=== PATIENT | male | born 1955 ===

== ENCOUNTER 2020-11-24 12:11 | Emergency (ER) | payer OTHER, SELFPAY ==
--- NOTE | ~2020-11-24 | XR_ITS ---
EXAMINATION: XR CHEST CLINICAL INFORMATION: Chest pain. COMPARISON: Chest 01/14/2015 TECHNIQUE: Frontal view of the chest was obtained. FINDINGS: No significant abnormality is noted involving the heart, lungs, mediastinum, bony thorax or soft tissues. XR/XR chest 1V IMPRESSION: Unremarkable chest exam.
[2020-11-24 13:46] VITALS: BP 149/68; PULSE 55; RESP 20; TEMP 35.3; O2SAT 96; BMI 52.4
--- NOTE | 2020-11-24 14:45 | ED_ITS ---
HPI - Back Pain/Injury General Chief Complaint: Back Pain/Injury Stated Complaint: back pain Time Seen by Provider: 11/24/20 14:45 Source: patient Mode of arrival: ambulatory Limitations: no limitations History of Present Illness HPI Narrative: 65-year-old morbidly obese male presents for 1 week of left-sided low back pain, and 3 months of right upper ?lung pain?. No chest pain. Patient has no leg weakness, no saddle paresthesia, no incontinence of bowel or bladder, no fevers, no IV drug use, no personal history of cancer. Patient states his PCP wants him to have a ?lung test? the patient has not had this test yet and his PCP has not ordered it yet. MD elicited complaint: back pain Pertinent past history: prior back pain Onset (ago): week(s) (1) Timing: constant Severity: moderate Similar Symptoms Previously: Yes Quality: aching Location: left lower back Radiation: none Exacerbating factors: movement Associated symptoms: denies other symptoms Work related injury: No Related Data Previous Rx's Medication Instructions Recorded cyclobenzaprine 5 mg tablet 5 mg PO TID 5 Days #15 tab 11/24/20 ketorolac 10 mg tablet 10 mg PO QID 5 Days #20 tab 11/24/20 Allergies Allergy/AdvReac Type Severity Reaction Status Date / Time No Known Allergies Allergy Unverified 11/15/19 16:18 Review of Systems Constitutional: Constitutional: Denies chills, Denies fatigue, Denies fever(s) and Denies headache(s) ENT: Denies headache(s) and Denies neck pain Cardiovascular: Cardiovascular: Denies chest pain, Denies claudication, Denies leg edema, Denies lightheadedness and Denies dyspnea Respiratory: Respiratory: Denies chest congestion, Denies cough and Denies dyspnea Gastrointestinal: Gastrointestinal: Denies abdominal pain, Denies constipation, Denies diarrhea, Denies nausea and Denies vomiting Genitourinary: Genitourinary: Reports no additional male genitourinary complaints Musculoskeletal: Musculoskeletal: Reports back pain, Denies muscle weakness, Denies neck pain, Denies numbness, Reports stiffness and Denies tingling Integumentary/Breasts: Skin/Breast: Denies erythema and Denies rash Neurologic: Denies headache(s), Denies numbness and Denies tingling Endocrine: Endocrine: Denies fatigue PMFSH Past Medical History Medical History Anxiety Depression Hypertension Panic anxiety syndrome Social History Social History Advance Directives: No Advance Directives Information Provided: No Physical Exam Vital Signs: Vital Signs: Last Vital Signs Temp 99.1 F 11/24/20 15:59 Pulse 56 11/24/20 15:59 Resp 22 H 11/24/20 15:59 BP 151/65 H 11/24/20 15:59 Pulse Ox 97 11/24/20 15:59 Body Mass Index 52.4 Const: General: no acute distress, alert, awake and poor hygiene Nutritional Appearance: obese centrally obese Orientation/consciousness: patient oriented x3 Limitations: language barrier Eyes: Conjunctivae: conjunctivae normal Pupils: Equal, round and reactive pupils present EOM: EOMs intact bilaterally Resp: Effort & Inspection: normal respiratory effort and able to speak in complete sentences Auscultation: clear to auscultation bilaterally, no crackles, no rales, no rhonchi and no wheezes Cardio: Rate: regular rate Rhythm: regular rhythm Heart sounds: S1 normal heart sound present and S2 normal heart sound present Back/Spine/Pelvis: Cervical Spine: cervical ROM normal and No Cervical spine tenderness Thoracic/Lumbar Spine: pain with thoraco-lumbar ROM, thoraco- lumbar spasm on the left in the mid lumbar, No thoracic spinal tenderness, No lumbar spinal tenderness and No straight leg raise positive Pelvis: no pain with anterior-posterior compression Sacroiliac joints: bilaterally nontender Skin: General skin exam: no rashes or lesions noted Neuro: General: patient oriented x3, tone normal and moves all extremities Cranial nerves: Yes Equal, round and reactive pupils present Extrem: General: Yes normal to inspection and Yes full ROM Psych: Appearance: grossly normal Affect: normal affect Attitude: cooperative Thought process: Normal thought process present Course Course Course Narrative: 65-year-old morbidly obese patient presents for 1 week of low back pain, and 3 months of right lung pain. On exam, patient has stable vitals, patient has trouble ambulating at baseline due to obesity, patient is chronically ill-appearing. Patient has intact lower extremity pulses, sensation, motor strength, and deep tendon reflexes. Patient is tender to palpate over left lower paraspinous muscle. Chest x-ray is negative, COVID is negative. Counseled patient he needs to follow up with his primary care provider for further lung testing Treated with ketorolac and Flexeril, patient is feeling better, will send home with same. MDM - Back Pain/Injury Lab Data Labs: Lab Results 11/24/20 Range/Units 16:46 COVID-19 ([facility]) Negative (Negative) COVID-19 Clin Com See Note Discharge Plan Discharge Clinical Impression: Strain of lumbar region Qualifiers: Encounter type: initial encounter Qualified Code(s): S39.012A - Strain of muscle, fascia and tendon of lower back, initial encounter Patient Disposition: Home, Self-Care Instructions: Acute Low Back Pain (ED) Additional Instructions: Please call your primary care provider tomorrow for follow up from today's emergency room visit. Please fill the prescriptions I sent to her pharmacy and take as prescribed. Prescriptions: New cyclobenzaprine 5 mg tablet 5 mg PO TID 5 Days Qty: 15 RF: 0 ketorolac 10 mg tablet 10 mg PO QID 5 Days Qty: 20 RF: 0
[2020-11-24 15:59] VITALS: BP 151/65; PULSE 56; RESP 22; TEMP 37.3; O2SAT 97
[2020-11-24] MEDS: Cyclobenzaprine HCl 10 MG TABLET PO (16:53)
[2020-11-24] MEDS: Ketorolac Tromethamine 15 MG/ML VIAL 30 MG IM (16:55)
[2020-11-24 17:08] LABS: COVID-19 Test Negative (Negative)
== END 2020-11-24 17:58 | disposition home or self-care (01) ==
PROVIDERS: Physician Assistant; Emergency Provider Emergency Medicine; PCP Physician Assistant Medical
DX: S39.012A Strain of muscle, fascia and tendon of lower back, initial encounter (principal); I10 Essential (primary) hypertension; X58.XXXA Exposure to other specified factors, initial encounter; Y93.9 Activity, unspecified; Y92.9 Unspecified place or not applicable; Y99.9 Unspecified external cause status; Z20.822 Contact with and (suspected) exposure to COVID-19; Z79.899 Other long term (current) drug therapy
CPT/HCPCS: 36415; 71045; 87635; 96372; 99284; J1885

== ENCOUNTER 2022-10-13 12:00 | Inpatient (IN) | payer MEDICARE, MEDICAID, SELFPAY ==
--- NOTE | ~2022-10-13 | CT_ITS ---
EXAMINATION: CT ABDOMEN AND PELVIS WITH CONTRAST CLINICAL INFORMATION: Abdominal pain. COMPARISON: 06/16/2007. TECHNIQUE: Multidetector volumetric images were obtained from the superior aspect of the liver through the pubic symphysis following administration 100 mL of Omnipaque 350 intravenous contrast. Sagittal and coronal reformatted images were obtained on the technologist's workstation. Oral Contrast: No. This CT examination was performed using dose optimization techniques as appropriate, variously including the following: *Automated exposure control. *Adjustment of mA and/or kV according to patient size (this includes techniques or standardized protocols for targeted exams where dose is matched to indication/reason for exam; i.e. extremities or head). *Use of iterative reconstruction technique. DLP: 1174 mGy-cm FINDINGS: LUNG BASES: There is scarring at the left lung base. LIVER, GALLBLADDER, AND BILIARY TREE: The liver is normal in size, shape, and attenuation. No focal hepatic lesion or biliary ductal dilatation is present. There has been a prior cholecystectomy. PANCREAS: Unremarkable. SPLEEN: Unremarkable. ADRENAL GLANDS: Unremarkable. KIDNEYS AND URETERS: The kidneys are normal in size, shape, and attenuation. No hydronephrosis, hydroureter, or calculi seen. No perinephric stranding. BLADDER: Unremarkable. GASTROINTESTINAL TRACT: There are diverticula of the distal descending and the sigmoid colon with proximal sigmoid colonic thickening and surrounding infiltration. There is a small cluster of air lucencies along the proximal sigmoid colon not within the bowel. There is no fluid collection. ABDOMINAL WALL: There is a complex umbilical/supraumbilical hernia containing fat. LYMPH NODES: Normal. VASCULAR: There is mild atherosclerotic plaque of the abdominal aorta. PELVIC VISCERA: Unremarkable. OSSEOUS STRUCTURES: Unremarkable. CT/CT abdomen pelvis w IV con IMPRESSION: 1. Diverticula of the descending and proximal sigmoid colon with acute diverticulitis of the proximal sigmoid colon. There are air lucencies adjacent to the proximal sigmoid colon not within the bowel, likely a contained perforation. 2. Complex umbilical/supraumbilical hernia containing fat. Fleischner guidelines were followed.
[2022-10-13 12:04] VITALS: BP 128/65; PULSE 76; RESP 18; TEMP 36.7; O2SAT 96; BMI 46.2
--- NOTE | 2022-10-13 12:06 | ED.LOWEXIN ---
HPI - Extremity Injury (Lower) General Chief Complaint: Abdominal Pain Stated Complaint: L Leg Pain Time Seen by Provider: 10/13/22 13:01 Source: patient Mode of arrival: ambulatory Limitations: no limitations History of Present Illness HPI Narrative: Patient comes to the emergency room complaining of left lower quadrant pain. Patient states that he has also history of a hernia in the ventral aspect of the abdomen, states that when he presses on his abdomen, the left lower quadrant hurts. Patient denies any nausea vomiting or diarrhea. No URI symptoms. Patient complaining of occasional dysuria, no flank pain, no fever chills. Related Data Previous Rx's Medication Instructions Recorded cyclobenzaprine 5 mg tablet 5 mg PO TID 5 days #15 tabs 11/24/20 ketorolac 10 mg tablet 10 mg PO QID 5 days #20 tabs 11/24/20 Allergies Allergy/AdvReac Type Severity Reaction Status Date / Time No Known Allergies Allergy Unverified 11/15/19 16:18 Review of Systems Review of Systems: Constitutional : No Weight loss, No Fever, No Chills, No Night Sweats, No Fatigue, No Malaise ENT/Mouth : No Hearing loss, No Ear Pain, No Nasal Congestion, No Sinus Pain, No Hoarseness, No sore throat, No Rhinorrhea, No Swallowing Difficulty Eyes: No Eye Pain, No Swelling, No Redness, No Foreign Body, No Discharge, No Vision Changes Cardiovascular : No Chest Pain, No SOB, No Dyspnea on Exertion, No Orthopnea, No Edema, No Palpitations Respiratory : No Cough, No Sputum, No Wheezing, No Smoke Exposure, No Dyspnea Gastrointestinal : No Nausea, No Vomiting, No Diarrhea, No Constipation, complaining of constant left lower quadrant pain and suprapubic pressure, No Hematochezia, No Melena Genitourinary : Complaining of intermittent Dysuria, No Urinary Frequency, No Hematuria, No Urinary Incontinence, No Urgency, No Flank Pain, No Urinary Flow Changes, No Hesitancy Musculoskeletal : No joint pain, No Myalgias, No Joint Swelling Skin : No Skin Lesions, No rash Neuro : No Weakness, No Numbness, No Paresthesias, No Loss of Consciousness, No Dizziness, No Headache Psych : No Anxiety/Panic, No Depression, No SI/HI/AH/VH, No Social Issues, Heme/Lymph: No Bruising, No Bleeding,No Lymphadenopathy Endocrine : No Polyuria, No Polydipsia, No Temperature Intolerance [facility] Past Medical History Medical History (Updated 10/13/22 @ 18:37 by Katie Pizarro MD) Anxiety Cardiomegaly CHF (congestive heart failure) Depression Hypertension Panic anxiety syndrome Social History Social History Alcohol intake: never Smoked in Last 30 Days: No Use of substances other than those prescribed or required for medical reasons: No Advance Directives: No Advance Directives Information Provided: No Physical Exam Vital Signs: Vital Signs: Last Vital Signs Temp 98.1 F 10/13/22 12:04 Pulse 74 10/13/22 17:28 Resp 18 10/13/22 14:45 BP 104/51 L 10/13/22 17:28 Pulse Ox 95 10/13/22 17:28 O2 Del Method Room Air 10/13/22 17:28 BMI result Body Mass Index 46.2 Const: Other: Appearance: Alert. Oriented X3. No acute distress. Eyes: Pupils equal, round and reactive to light. ENT: Pharynx normal. Neck: Normal inspection. Neck supple. No lymph nodes noted. No crepitus CVS: Normal heart rate and rhythm. Pulses normal. Normal S1 and S2 Respiratory: No respiratory distress. Breath sounds normal. No Wheezing. No rales Abdomen: Soft , nondistended, mild to moderate pain to palpation on the left lower quadrant and suprapubic area, no rebound, no guarding. There is a palpable hernia in the middle of the abdomen Skin: Skin warm and dry. Normal skin color. Normal skin turgor. Extremities: No lower extremity edema. No Lacerations. No Rash Neuro: Oriented X 3. No motor deficit. No sensory deficit. Moving all extremities. No slurred speech. CN 2 through 12 grossly intact Psych: calm, cooperative, normal affect Course Course Course Narrative: RME: 67-year-old male with past medical history HTN, anxiety, panic disorder, depression, presenting to the ED complaining of constant LLQ/groin pain x4 days. Denies urinary sx, fever, chills. abdomen soft w/LLQ/suprapubic ttp Labs, UA ordered Full HPI, ROS and PE to be performed by primary ED provider. Medications Administered Discontinued Medications Generic Name Dose Route Start Last Admin Trade Name Freq PRN Reason Stop Dose Admin Ceftriaxone Sodium 1 gm/ 50 mls @ 100 mls/hr 10/13/22 16:38 10/13/22 18:24 Sodium Chloride IV 10/13/22 17:07 Infused ONCE ONE Infusion Iohexol 100 ml 10/13/22 17:19 10/13/22 17:19 Iohexol 350 Mg/Ml 100 Ml Infus..Btl IV 10/13/22 17:20 100 ml ONCE ONE Administration Medical Decision Making Medical Decision Making [facility] Narrative: -my interpretation of labs, white blood cell count elevated, 17.7, lactic acid and blood culture pending. Patient has no fever chills, normal blood pressure, normal heart rate, at this time, 13:15, sepsis is not suspected -16:39, patient was able to give a urine sample and it shows the patient has a UTI. Patient given IV ceftriaxone -18:10, CT scan of the abdomen shows possible perforation, diverticulitis, patient was given Zosyn. Lactic acid improved, patient remains stable, not tachycardic, sepsis not suspected -I discussed the patient with Dr. Virgen, patient being admitted Differential Diagnosis Differential Diagnoses: The differential diagnosis associated with the presentation includes (Diverticulitis, pyelonephritis, UTI, abdominal abscess) Admission/Observation Consideration of admission/observation: Escalation of care including admission/observation considered (Patient's white blood cell count elevated, patient has a UTI, admission being considered) Consult Healthcare Provider Management of the patient was discussed with: [employer]cery [employer] Manager Lab Data [facility] Lab Attestation statement: I reviewed the patient's lab results. (Elevated white blood cell count, lactic initially 2.1, improved with IV fluids) 10/13/22 12:17 10/13/22 12:17 Labs: Lab Results 10/13/22 10/13/22 10/13/22 Range/Units 12:17 12:17 13:25 WBC 17.7 H (4.8-10.8) X10*3/uL RBC 5.25 (4.60-5.80) X10*6/uL Hgb 15.7 (14.0-18.0) g/dl Hct 46.9 (42.0-52.0) % MCV 89.3 (80.0-98.0) fL MCH 29.9 (27.0-33.0) pg MCHC 33.5 (31.0-36.0) g/dl RDW 14.3 (11.0-16.0) % Plt Count 236 (160-400) X10*3/uL MPV 9.7 (9.4-12.4) fL Immature Gran % (Auto) 0.8 H (0.0-0.4) % Neut % (Auto) 85.5 H (45-73) % Lymph % (Auto) 5.9 L (20-40) % Gilchrist % (Auto) 7.3 (2-11) % Eos % (Auto) 0.2 (0-4) % Baso % (Auto) 0.3 (0-2) % Lymph # (Auto) 1.0 L (1.2-4.9) X10*3/uL Gilchrist # (Auto) 1.3 H (0.1-1.2) X10*3/uL Eos # (Auto) 0.0 (0.0-0.4) X10*3/uL Baso # (Auto) 0.1 (0.0-0.2) X10*3/uL Abs Immat Gran (auto) 0.15 H (0.00-0.03) X10*3/uL Absolute Neuts (auto) 15.2 H (2.0-8.3) x10*3/uL Absolute Nucleated RBC 0.000 (0.0-0.012) X10*3/uL Nucleated RBC % (auto) 0.0 (0.0-0.2) /100WBC Sodium 142 (135-145) mmol/L Potassium 3.7 (3.3-5.1) mmol/L Chloride 106 (96-108) mmol/L Carbon Dioxide 26 (22-29) mmol/L Anion Gap 14 (12-20) BUN 15 (9-16) mg/dL Creatinine 0.89 (0.5-1.4) mg/dL Estim Creat Clear Calc 107.6 Estimated GFR > 60 Random Glucose 125 H (60-115) mg/dL Lactic Acid 2.1 H* (0.5-2.0) mmol/L Lactic Acid F/U @ 2Hr (0.5-2.0) mmol/L Calcium 9.3 (8.4-10.2) mg/dL Magnesium 2.0 (1.6-2.6) mg/dL Total Bilirubin 1.1 H (0.0-1.0) mg/dL Direct Bilirubin 0.4 (0.0-0.5) mg/dL AST 14 (5-37) U/L ALT 13 (0-40) U/L Alkaline Phosphatase 83 (39-117) U/L Total Protein 7.0 (6.5-8.0) g/dL Albumin 3.7 (3.5-5.0) g/dL Lipase 11 (8-78) U/L Urine Color Urine Appearance Urine pH (5.0-9.0) Ur Specific [place] (1.005-1.025) Urine Protein (Neg-Trace) mg/dL Urine Glucose (UA) (Negative) mg/dL Urine Ketones (Negative) mg/dL Urine Blood (Negative) Urine Nitrite (Negative) Ur Leukocyte Esterase (Negative) Urine RBC (0-2) /HPF Urine WBC (0-5) /HPF Ur Squamous Epith Cells (0-2) /HPF Urine Bacteria (None Seen) Hyaline Casts (0-2) /LPF 10/13/22 10/13/22 Range/Units 15:27 15:43 WBC (4.8-10.8) X10*3/uL RBC (4.60-5.80) X10*6/uL Hgb (14.0-18.0) g/dl Hct (42.0-52.0) % MCV (80.0-98.0) fL MCH (27.0-33.0) pg MCHC (31.0-36.0) g/dl RDW (11.0-16.0) % Plt Count (160-400) X10*3/uL MPV (9.4-12.4) fL Immature Gran % (Auto) (0.0-0.4) % Neut % (Auto) (45-73) % Lymph % (Auto) (20-40) % Gilchrist % (Auto) (2-11) % Eos % (Auto) (0-4) % Baso % (Auto) (0-2) % Lymph # (Auto) (1.2-4.9) X10*3/uL Gilchrist # (Auto) (0.1-1.2) X10*3/uL Eos # (Auto) (0.0-0.4) X10*3/uL Baso # (Auto) (0.0-0.2) X10*3/uL Abs Immat Gran (auto) (0.00-0.03) X10*3/uL Absolute Neuts (auto) (2.0-8.3) x10*3/uL Absolute Nucleated RBC (0.0-0.012) X10*3/uL Nucleated RBC % (auto) (0.0-0.2) /100WBC Sodium (135-145) mmol/L Potassium (3.3-5.1) mmol/L Chloride (96-108) mmol/L Carbon Dioxide (22-29) mmol/L Anion Gap (12-20) BUN (9-16) mg/dL Creatinine (0.5-1.4) mg/dL Estim Creat Clear Calc Estimated GFR Random Glucose (60-115) mg/dL Lactic Acid (0.5-2.0) mmol/L Lactic Acid F/U @ 2Hr 1.5 (0.5-2.0) mmol/L Calcium (8.4-10.2) mg/dL Magnesium (1.6-2.6) mg/dL Total Bilirubin (0.0-1.0) mg/dL Direct Bilirubin (0.0-0.5) mg/dL AST (5-37) U/L ALT (0-40) U/L Alkaline Phosphatase (39-117) U/L Total Protein (6.5-8.0) g/dL Albumin (3.5-5.0) g/dL Lipase (8-78) U/L Urine Color Ector A Urine Appearance Clear Urine pH 5.5 (5.0-9.0) Ur Specific [place] >= 1.030 H (1.005-1.025) Urine Protein 30 (1+) H (Neg-Trace) mg/dL Urine Glucose (UA) Negative (Negative) mg/dL Urine Ketones Trace (Negative) mg/dL Urine Blood Trace H (Negative) Urine Nitrite Positive H (Negative) Ur Leukocyte Esterase Trace H (Negative) Urine RBC 6-10 H (0-2) /HPF Urine WBC 0-5 (0-5) /HPF Ur Squamous Epith Cells 0-2 (0-2) /HPF Urine Bacteria None Seen (None Seen) Hyaline Casts 11-20 (0-2) /LPF Independent Interpretation I performed an independent interpretation of an: CT Scan (My interpretation of CT scan, abnormality in the left lower quadrant, possible diverticulitis) Radiology Impression Discussion of test interpretation with radiology: I have reviewed the radiologist's reading. Radiologist Impression: FINDINGS: LUNG BASES: There is scarring at the left lung base.? LIVER, GALLBLADDER, AND BILIARY TREE: The liver is normal in size, shape, and attenuation. No focal hepatic lesion or biliary ductal dilatation is present. There has been a prior cholecystectomy.? PANCREAS: Unremarkable.? SPLEEN: Unremarkable.? ADRENAL GLANDS: Unremarkable.? KIDNEYS AND URETERS: The kidneys are normal in size, shape, and attenuation. No hydronephrosis, hydroureter, or calculi seen. No perinephric stranding. ? BLADDER: Unremarkable.? GASTROINTESTINAL TRACT: There are diverticula of the distal descending and the sigmoid colon with proximal sigmoid colonic thickening and surrounding infiltration. There is a small cluster of air lucencies along the proximal sigmoid colon not within the bowel. There is no fluid collection.? ABDOMINAL WALL: There is a complex umbilical/supraumbilical hernia containing fat.? LYMPH NODES: Normal. VASCULAR: There is mild atherosclerotic plaque of the abdominal aorta. PELVIC VISCERA: Unremarkable.? OSSEOUS STRUCTURES: Unremarkable.? CT/CT abdomen pelvis w IV con IMPRESSION: 1. Diverticula of the descending and proximal sigmoid colon with acute diverticulitis of the proximal sigmoid colon. There are air lucencies adjacent to the proximal sigmoid colon not within the bowel, likely a contained perforation. ? 2. Complex umbilical/supraumbilical hernia containing fat. ? Fleischner guidelines were followed. Independent Historian Clinical information obtained from an independent historian. History obtained from or confirmed by: Other (SIGN WIRER) Critical Care Time Critical Care Time Critical Care Time: Yes Total Critical Care Time: 60 Attestation: I have personally provided critical care time. Time includes review of lab data, radiology results, discussion with consultants, and monitoring for potential decompensation. Intervention performed as documented. Discharge Plan Discharge Clinical Impression: Diverticulitis of colon with perforation Patient Disposition: Admitted As Inpatient Prescriptions: No Action cyclobenzaprine 5 mg tablet 5 mg PO TID 5 Days Qty: 15 0RF ketorolac 10 mg tablet 10 mg PO QID 5 Days Qty: 20 0RF
[2022-10-13 12:25] LABS: MANUAL DIFF FLAG NO
[2022-10-13 12:27] LABS: Basophils Absolute Auto 0.1 X10*3/uL (0.0-0.2); Basophils Percent Auto 0.3 % (0-2); Eosinophils Percent Auto 0.2 % (0-4); Hematocrit 46.9 % (42.0-52.0); Hemoglobin 15.7 g/dl (14.0-18.0); Imm Gran Abs Auto 0.15 X10*3/uL (0.00-0.03); Imm Gran Pct Auto 0.8 % (0.0-0.4); Lymphocytes Percent Auto 5.9 % (20-40); Mean Corpuscular HGB Conc 33.5 g/dl (31.0-36.0); Mean Corpuscular Hemoglobin 29.9 pg (27.0-33.0); Mean Corpuscular Volume 89.3 fL (80.0-98.0); Mean Platelet Volume 9.7 fL (9.4-12.4); Monocytes Absolute Auto 1.3 X10*3/uL (0.1-1.2); Monocytes Percent Auto 7.3 % (2-11); Neutrophils Absolute Auto 15.2 x10*3/uL (2.0-8.3); Neutrophils Percent Auto 85.5 % (45-73); Platelet Count 236 X10*3/uL (160-400); Red Blood Count 5.25 X10*6/uL (4.60-5.80); Red Cell Distribution Width 14.3 % (11.0-16.0); White Blood Count 17.7 X10*3/uL (4.8-10.8)
[2022-10-13 12:41] LABS: Alanine Aminotransferase 13 U/L (0-40); Albumin Level 3.7 g/dL (3.5-5.0); Alkaline Phosphatase 83 U/L (39-117); Anion Gap 14 (12-20); Aspartate Amino Transferase 14 U/L (5-37); Bilirubin Direct 0.4 mg/dL (0.0-0.5); Bilirubin Total 1.1 mg/dL (0.0-1.0); Blood Urea Nitrogen 15 mg/dL (9-16); Calcium 9.3 mg/dL (8.4-10.2); Carbon Dioxide 26 mmol/L (22-29); Chloride 106 mmol/L (96-108); Creatinine Clr Calc Pharmacy 107.6; Estimated Glomerular Filt Rate > 60; Glucose Random 125 mg/dL (60-115); Lipase 11 U/L (8-78); Potassium 3.7 mmol/L (3.3-5.1); Sodium 142 mmol/L (135-145)
[2022-10-13 13:51] LABS: Lactic Acid 2.1 mmol/L (0.5-2.0)
[2022-10-13 14:08] VITALS: BP 119/56; PULSE 66; RESP 17; O2SAT 96
[2022-10-13 14:45] VITALS: BP 107/52; PULSE 65; RESP 18; O2SAT 95
[2022-10-13 15:30] LABS: Reflex Lactate? Lactic Acid Added
[2022-10-13 16:02] LABS: ~Lactic Acid-LAB USE ONLY 1.5 mmol/L (0.5-2.0)
[2022-10-13 16:18] LABS: Appearance Urine Clear; Color Urine Orange; Glucose Urine UA Negative (Negative); Leukocyte Esterase Urine Trace (Negative); Nitrite Urine Positive (Negative); PH 5.5 (5.0-9.0); Specific Gravity - Urine >= 1.030 (1.005-1.025); UMIC TRIGGER UACC YES; Urine Blood Trace (Negative); Urine Ketones Trace mg/dL (Negative); Urine Protein 30 (1+) mg/dL (Neg-Trace)
[2022-10-13 16:19] LABS: Bacteria Urine None Seen (None Seen); Squamous Epithelial Cell Urine 0-2 /HPF (0-2); UACC Culture Trigger YES; WBC Urine 0-5 /HPF (0-5)
[2022-10-13] MEDS: iohexoL 350 MG/ML 100 ML INFUS..BTL IV (17:19)
[2022-10-13 17:28] VITALS: BP 104/51; PULSE 74; O2SAT 95
[2022-10-13] MEDS: cefTRIAXone sodium 1 GM in 0.9 % Sodium Chloride 50 ML IV (17:52)
[2022-10-13] MEDS: Piperacillin Sodium/Tazobactam 3.375 GM in 0.9 % Sodium Chloride 50 ML IV (18:42)
[2022-10-13] MEDS: Morphine Sulfate 2 MG/ML CARTRIDGE 1 MG IVPUSH (18:42)
--- NOTE | 2022-10-13 19:43 | PHA.MEDREC ---
Pharmacy Consult ? Medication Reconciliation Pharmacy has completed the medication reconciliation. Patient does not know any of his mediations. Reports he has a nurse Cherelle [phone]. Attempted to call, left message. Utilized claim history to complete med rec. Shae Lopez, MadiD
--- NOTE | 2022-10-13 20:00 | PC.NURSE ---
Patient is alert and oriented x3, Brazilian speaking only. Patient is able to make his needs known, uses call alvarado appropriately. VSS. 20 G IV line in L forearm, patient. Patient ambulates with a cane, gait is steady.
--- NOTE | 2022-10-13 20:05 | PM.HPGS ---
History of Present Illness History of Present Illness Date of Service: 10/13/22 Chief complaint: Abdominal pain Narrative: Chris Parham is a 67 year old male who has been having abdominal pain for the last 4 days. He comes in now because it is ongoing. He has never had pain like this before. He says he has had a colonoscopy many years ago. He was not aware that he had diverticulitis. He says that he is scheduled to have another colonoscopy in March 2023. He denies any fevers or chills just abdominal pain. He has umbilical hernia for many years and has never had it repaired. He has had no abdominal surgeries before. Review of Systems Review of Systems: Yes all other systems are reviewed and are negative PMFSH Past Medical History Medical History (Updated 10/13/22 @ 18:37 by Katie Pizarro MD) Anxiety Cardiomegaly CHF (congestive heart failure) Depression Hypertension Panic anxiety syndrome Social History Social History Alcohol intake: never Smoked in Last 30 Days: No Use of substances other than those prescribed or required for medical reasons: No Advance Directives: No Advance Directives Information Provided: No Meds Allergies Allergy/AdvReac Type Severity Reaction Status Date / Time No Known Allergies Allergy Unverified 11/15/19 16:18 Active Medications: Current Medications Enoxaparin Sodium (Enoxaparin Sodium 40 Mg/0.4 Ml Syringe) 40 mg SUBCUT Q24H [facility] Sodium Chloride (Ns) 1,000 mls @ 100 mls/hr IVCONT .Q10H [facility] Morphine Sulfate (Morphine Sulfate 4 Mg/Ml Cartridge) 3 mg IVPUSH RQ4H PRN; Protocol PRN Reason: Pain, Severe (Pain Scale 7-10) Ondansetron HCl (Ondansetron Hcl 4 Mg/2 Ml Vial) 4 mg IVPUSH RQ4H PRN PRN Reason: Nausea and Vomiting Pantoprazole Sodium (Pantoprazole Sodium 40 Mg/10 Ml Vial) 40 mg IVPUSH DAILY [facility] Sodium Chloride (0.9 % Sodium Chloride Flush 3 Ml Syringe) 3 ml IVFLUSH QSHIFT [facility] Home Medications Medication Instructions Recorded Confirmed Last Taken Type apixaban 5 mg tablet (Eliquis) 5 mg PO BID 10/13/22 10/13/22 Unknown History aripiprazole 10 mg tablet 10 mg PO DAILY 10/13/22 10/13/22 Unknown History buspirone 30 mg tablet 30 mg PO BID 10/13/22 10/13/22 Unknown History digoxin 125 mcg (0.125 mg) tablet 125 mcg PO DAILY 10/13/22 10/13/22 Unknown History escitalopram oxalate 20 mg tablet 20 mg PO DAILY 10/13/22 10/13/22 Unknown History furosemide 40 mg tablet 40 mg PO DAILY 10/13/22 10/13/22 Unknown History gabapentin 400 mg capsule 400 mg PO DAILY 10/13/22 10/13/22 Unknown History metformin 500 mg tablet 500 mg PO DAILY 10/13/22 10/13/22 Unknown History metoprolol tartrate 50 mg tablet 75 mg PO BID 10/13/22 10/13/22 Unknown History mirtazapine 15 mg tablet 15 mg PO BEDTIME 10/13/22 10/13/22 Unknown History pantoprazole 40 mg tablet,delayed 40 mg PO DAILY 10/13/22 10/13/22 Unknown History release prazosin 1 mg capsule 1 mg PO BEDTIME 10/13/22 10/13/22 Unknown History sacubitril 24 mg-valsartan 26 mg 1 tab PO BID 10/13/22 10/13/22 Unknown History tablet (Entresto) simvastatin 20 mg tablet 20 mg PO BEDTIME 10/13/22 10/13/22 Unknown History Physical Exam Vital Signs: Vital Signs: Last Vital Signs Temp 98.1 F 10/13/22 12:04 Pulse 74 10/13/22 17:28 Resp 18 10/13/22 14:45 BP 104/51 L 10/13/22 17:28 Pulse Ox 95 10/13/22 17:28 O2 Del Method Room Air 10/13/22 17:28 BMI result Body Mass Index 46.2 Const: General: cooperative, healthy appearing, comfortable and no acute distress Nutritional Appearance: obese Orientation/consciousness: oriented to person, oriented to place and oriented to time HEENT: Head: Yes normal to inspection Chest: Chest palpation & inspection: normal inspection of the chest Resp: Effort & Inspection: normal respiratory effort and able to speak in complete sentences Auscultation: clear to auscultation bilaterally Cardio: Palpation: normal PMI Rate: regular rate GI: Other: Abdomen is soft tender in the lower abdomen left and right side but the left side more so than the right no guarding no rebound no peritoneal signs. Above the umbilical area there is a mass that is consistent with his incarcerated hernia with just fat area here she is mildly tender Skin: General skin exam: no rashes or lesions noted Neuro: General: oriented to person, oriented to place and oriented to time Cranial nerves: Yes CN's II-XII intact bilaterally Extrem: General: Yes normal to inspection Results Results Labs: Short CBC 10/13/22 Range/Units 12:17 WBC 17.7 H (4.8-10.8) X10*3/uL Hgb 15.7 (14.0-18.0) g/dl Hct 46.9 (42.0-52.0) % Plt Count 236 (160-400) X10*3/uL BMP 10/13/22 12:17 Sodium 142 Potassium 3.7 Chloride 106 Carbon Dioxide 26 BUN 15 Creatinine 0.89 Calcium 9.3 Liver Function 10/13/22 Range/Units 12:17 Total Bilirubin 1.1 H (0.0-1.0) mg/dL Direct Bilirubin 0.4 (0.0-0.5) mg/dL AST 14 (5-37) U/L ALT 13 (0-40) U/L Alkaline Phosphatase 83 (39-117) U/L Albumin 3.7 (3.5-5.0) g/dL Urine 10/13/22 Range/Units 15:27 Urine Color [place] A Urine Appearance Clear Urine pH 5.5 (5.0-9.0) Ur Specific [place] >= 1.030 H (1.005-1.025) Urine Protein 30 (1+) H (Neg-Trace) mg/dL Urine Glucose (UA) Negative (Negative) mg/dL Abdomen CT scan report/results: report reviewed and image reviewed CT scan - pelvis: report reviewed and image reviewed Assessment and Plan (1) Diverticulitis of colon with perforation: Status: Acute Plan 67-year-old male with 4 day history of abdominal pain left lower quadrant mildly tender white count elevated at 17 CT scan showing evidence of diverticulitis with localized perforation patient stable. Question also urinary tract infection doubt that this is a fistula. Plan admit to the floor NPO IV fluids IV Zosyn check labs tomorrow DVT and GI prophylaxis. 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 Time Spent With Patient Time: Total time managing care of this patient today ____ minutes. Quality Stroke Does the patient have a stroke diagnosis?: No VTE Prior VTE?: No VTE Risk Level:: Surgical - low VTE Device Contraindication: N/A - Device Ordered VTE Drug Contraindication: N/A - Med Ordered Procedures Date of Service Date of Service: 10/13/22
[2022-10-13] MEDS: Enoxaparin Sodium 40 MG/0.4 ML SYRINGE SUBCUT (20:22)
[2022-10-13] MEDS: Pantoprazole Sodium 40 MG/10 ML VIAL IVPUSH (20:22)
[2022-10-13] MEDS: ondansetron HCL 4 MG/2 ML VIAL IVPUSH (20:22)
[2022-10-13] MEDS: 0.9 % Sodium Chloride 1,000 ML 100 ML IVCONT (20:22)
[2022-10-13 20:35] VITALS: BP 126/78; PULSE 76; RESP 18; TEMP 37.2; O2SAT 95
--- NOTE | 2022-10-13 20:42 | PC.NURSE ---
Nurse to nurse report given to [facility] RN. Patient to be transferred to [id number] by monument carver.
[2022-10-14 00:02] VITALS: BP 114/61; PULSE 75; RESP 18; TEMP 37.1; O2SAT 98
[2022-10-14 03:48] VITALS: BP 140/99; PULSE 93; RESP 18; TEMP 37.1; O2SAT 95
[2022-10-14] MEDS: 0.9 % Sodium Chloride 1,000 ML 100 ML IVCONT ×2 (05:51→15:32)
--- NOTE | 2022-10-14 05:52 | PC.NURSE ---
Assumed care for patient at 2300. A&Ox4, Uzbek speaking. Able to make needs known. Steady on feet, ambulating with stand by assist to bathroom. Denies pain or discomfort. NS infusing as ordered.
[2022-10-14 06:49] LABS: MANUAL DIFF FLAG NO
[2022-10-14 07:00] LABS: Basophils Percent Auto 0.2 % (0-2); Eosinophils Absolute Auto 0.1 X10*3/uL (0.0-0.4); Eosinophils Percent Auto 0.7 % (0-4); Hematocrit 40.9 % (42.0-52.0); Hemoglobin 13.6 g/dl (14.0-18.0); Imm Gran Pct Auto 1.4 % (0.0-0.4); Lymphocytes Absolute Auto 1.8 X10*3/uL (1.2-4.9); Mean Corpuscular HGB Conc 33.3 g/dl (31.0-36.0); Mean Corpuscular Hemoglobin 29.9 pg (27.0-33.0); Mean Corpuscular Volume 89.9 fL (80.0-98.0); Mean Platelet Volume 9.8 fL (9.4-12.4); Monocytes Absolute Auto 1.2 X10*3/uL (0.1-1.2); Monocytes Percent Auto 8.1 % (2-11); Neutrophils Absolute Auto 11.5 x10*3/uL (2.0-8.3); Neutrophils Percent Auto 77.6 % (45-73); Platelet Count 200 X10*3/uL (160-400); Red Blood Count 4.55 X10*6/uL (4.60-5.80); Red Cell Distribution Width 14.3 % (11.0-16.0); White Blood Count 14.8 X10*3/uL (4.8-10.8)
[2022-10-14 07:10] LABS: Anion Gap 12 (12-20); Blood Urea Nitrogen 15 mg/dL (9-16); Calcium 9.1 mg/dL (8.4-10.2); Carbon Dioxide 25 mmol/L (22-29); Chloride 108 mmol/L (96-108); Creatinine Clr Calc Pharmacy 122.7; Estimated Glomerular Filt Rate > 60; Glucose Random 95 mg/dL (60-115); Potassium 3.3 mmol/L (3.3-5.1); Sodium 142 mmol/L (135-145)
[2022-10-14 07:50] VITALS: BP 109/67; PULSE 68; RESP 20; TEMP 36.4; O2SAT 94
--- NOTE | 2022-10-14 08:30 | MHC.CM.PN ---
CM met with Patient at bedside with the assist of Slovenian translation and addressed IMM with Patient(original has been given to Patient and a copy has been placed on the chart). Patient lives alone in an apartment and he uses a cane to assist with mobility. Patient receives [employer] hours/week and RN visits 3X/week but neither Patient nor his Contact/Exwife/HCP/Susanne know the name of the agency. Home/resume said services is the goal and CM has initiated and will follow for dc planning.PCP is from [facility] in [place].
[2022-10-14] MEDS: Pantoprazole Sodium 40 MG/10 ML VIAL IVPUSH (08:59)
[2022-10-14] MEDS: 0.9 % Sodium Chloride Flush 3 ML SYRINGE IVFLUSH ×2 (08:59→15:33)
--- NOTE | 2022-10-14 09:26 | P.PNGS_ITS ---
Subjective Subjective Date of Service: 10/14/22 <Saida Rios PA-C - Last Filed: 10/14/22 09:30> 10/14/22 <Jaciel Jones MD - Last Filed: 10/14/22 09:35> Interval history: Feels much better this morning, abdominal pain improved. Denies nausea. Denies pain on urination. Feels hungry and wants to eat. <Saida Rios PA-C - Last Filed: 10/14/22 09:30> Physical Exam Vital Signs: Vital Signs: Last Vital Signs Temp 97.6 F 10/14/22 07:50 Pulse 68 10/14/22 07:50 Resp 20 10/14/22 07:50 BP 109/67 10/14/22 07:50 Pulse Ox 94 10/14/22 07:50 O2 Del Method Room Air 10/14/22 07:50 BMI result Body Mass Index 46.2 <Sadia Rios PA-C - Last Filed: 10/14/22 09:30> Const: General: comfortable, no acute distress and alert <Saida Rios PA-C - Last Filed: 10/14/22 09:30> Orientation/consciousness: patient oriented x3 <GALINA Caballero Last Filed: 10/14/22 09:30> Resp: Effort & Inspection: normal respiratory effort <Saida Rios PA-C - Last Filed: 10/14/22 09:30> GI: Inspection: No distended <Saida Rios PA-C - Last Filed: 10/14/22 09:30> Palpation (GI): Soft to palpation, Tenderness to palpation present (GI) (very mild LLQ), no guarding and not rigid <GALINA Caballero Last Filed: 10/14/22 09:30> Skin: General skin exam: no rashes or lesions noted <GALINA Caballero Last Filed: 10/14/22 09:30> Neuro: General: patient oriented x3 and moves all extremities <GALINA Caballero Last Filed: 10/14/22 09:30> Extrem: General: Yes no clubbing, cyanosis or edema <Saida Rios PA-C - Last Filed: 10/14/22 09:30> Objective Data Active Medications Aripiprazole (Aripiprazole 10 Mg Tablet) 10 mg PO DAILY [facility] Buspirone HCl (Buspirone Hcl 10 Mg Tablet) 30 mg PO BID [facility] Digoxin (Digoxin 0.125 Mg Tablet) 0.125 mg PO DAILY [facility] Enoxaparin Sodium (Enoxaparin Sodium 40 Mg/0.4 Ml Syringe) 40 mg SUBCUT Q24H [facility] Last Admin: 10/13/22 20:22 Dose: 40 mg Documented By: DIETER Escitalopram Oxalate (Escitalopram Oxalate 20 Mg Tablet) 20 mg PO DAILY [facility] Furosemide (Furosemide 40 Mg Tablet) 40 mg PO DAILY [facility]; Protocol Gabapentin (Gabapentin 400 Mg Capsule) 400 mg PO DAILY [facility] Sodium Chloride (Ns) 1,000 mls @ 100 mls/hr IVCONT .Q10H [facility] Last Admin: 10/14/22 05:51 Dose: 100 mls/hr Documented By: REECE Piperacillin Sod/Tazobactam (Sod 3.375 gm/ Sodium Chloride) 50 mls @ 100 mls/hr IV Q6H [facility] Metoprolol Tartrate (Metoprolol Tartrate 25 Mg Tablet) 75 mg PO BID [facility]; Protocol Mirtazapine (Mirtazapine 15 Mg Tablet) 15 mg PO BEDTIME [facility] Morphine Sulfate (Morphine Sulfate 4 Mg/Ml Cartridge) 3 mg IVPUSH RQ4H PRN; Protocol PRN Reason: Pain, Severe (Pain Scale 7-10) Non-Formulary Medication (Pantoprazole) 40 mg PO DAILY [facility] Non-Formulary Medication (Simvastatin) 20 mg PO BEDTIME [facility] Ondansetron HCl (Ondansetron Hcl 4 Mg/2 Ml Vial) 4 mg IVPUSH RQ4H PRN PRN Reason: Nausea and Vomiting Oxycodone HCl (Oxycodone Hcl Immed Release 5 Mg Tablet) 5 mg PO Q4H PRN PRN Reason: Pain, Moderate(Pain Scale 4-6) Pantoprazole Sodium (Pantoprazole Sodium 40 Mg/10 Ml Vial) 40 mg IVPUSH DAILY [facility] Last Admin: 10/14/22 08:59 Dose: 40 mg Documented By: LAURIE Prazosin HCl (Prazosin Hcl 1 Mg Capsule) 1 mg PO BEDTIME [facility]; Protocol Sacubitril/Valsartan (Sacubitril/Valsartan 1 Tab Tablet) 1 tab PO BID [facility]; Protocol Sodium Chloride (0.9 % Sodium Chloride Flush 3 Ml Syringe) 3 ml IVFLUSH QSHIFT [facility] Last Admin: 10/14/22 08:59 Dose: 3 ml Documented By: LAURIE <Saida Rios PA-C - Last Filed: 10/14/22 09:30> Labs CBC & Chem 7: 10/14/22 06:43 10/14/22 06:43 <Saida Rios PA-C - Last Filed: 10/14/22 09:30> Labs: Laboratory Results - last 24 hr 10/13/22 10/13/22 10/13/22 12:17 12:17 13:25 MCV 89.3 MCH 29.9 MCHC 33.5 RDW 14.3 Plt Count 236 MPV 9.7 Immature Gran % (Auto) 0.8 H Neut % (Auto) 85.5 H Lymph % (Auto) 5.9 L [place] % (Auto) 7.3 Eos % (Auto) 0.2 Baso % (Auto) 0.3 Lymph # (Auto) 1.0 L [place] # (Auto) 1.3 H Eos # (Auto) 0.0 Baso # (Auto) 0.1 Abs Immat Gran (auto) 0.15 H Absolute Neuts (auto) 15.2 H Absolute Nucleated RBC 0.000 Nucleated RBC % (auto) 0.0 Anion Gap 14 Estim Creat Clear Calc 107.6 Estimated GFR > 60 Random Glucose 125 H Lactic Acid 2.1 H* Lactic Acid F/U @ 2Hr Calcium 9.3 Magnesium 2.0 Total Bilirubin 1.1 H Direct Bilirubin 0.4 AST 14 ALT 13 Alkaline Phosphatase 83 Total Protein 7.0 Albumin 3.7 Lipase 11 Urine Color Urine Appearance Urine pH Ur Specific [place] Urine Protein Urine Glucose (UA) Urine Ketones Urine Blood Urine Nitrite Ur Leukocyte Esterase Urine RBC Urine WBC Ur Squamous Epith Cells Urine Bacteria Hyaline Casts 10/13/22 10/13/22 10/14/22 15:27 15:43 06:43 MCV 89.9 MCH 29.9 MCHC 33.3 RDW 14.3 Plt Count 200 MPV 9.8 Immature Gran % (Auto) 1.4 H Neut % (Auto) 77.6 H Lymph % (Auto) 12.0 L [place] % (Auto) 8.1 Eos % (Auto) 0.7 Baso % (Auto) 0.2 Lymph # (Auto) 1.8 [place] # (Auto) 1.2 Eos # (Auto) 0.1 Baso # (Auto) 0.0 Abs Immat Gran (auto) 0.20 H Absolute Neuts (auto) 11.5 H Absolute Nucleated RBC 0.000 Nucleated RBC % (auto) 0.0 Anion Gap Estim Creat Clear Calc Estimated GFR Random Glucose Lactic Acid Lactic Acid F/U @ 2Hr 1.5 Calcium Magnesium Total Bilirubin Direct Bilirubin AST ALT Alkaline Phosphatase Total Protein Albumin Lipase Urine Color [place] A Urine Appearance Clear Urine pH 5.5 Ur Specific [place] >= 1.030 H Urine Protein 30 (1+) H Urine Glucose (UA) Negative Urine Ketones Trace Urine Blood Trace H Urine Nitrite Positive H Ur Leukocyte Esterase Trace H Urine RBC 6-10 H Urine WBC 0-5 Ur Squamous Epith Cells 0-2 Urine Bacteria None Seen Hyaline Casts 11-10/14/22 06:43 MCV MCH MCHC RDW Plt Count MPV Immature Gran % (Auto) Neut % (Auto) Lymph % (Auto) [place] % (Auto) Eos % (Auto) Baso % (Auto) Lymph # (Auto) [place] # (Auto) Eos # (Auto) Baso # (Auto) Abs Immat Gran (auto) Absolute Neuts (auto) Absolute Nucleated RBC Nucleated RBC % (auto) Anion Gap 12 Estim Creat Clear Calc 122.7 Estimated GFR > 60 Random Glucose 95 Lactic Acid Lactic Acid F/U @ 2Hr Calcium 9.1 Magnesium Total Bilirubin Direct Bilirubin AST ALT Alkaline Phosphatase Total Protein Albumin Lipase Urine Color Urine Appearance Urine pH Ur Specific [place] Urine Protein Urine Glucose (UA) Urine Ketones Urine Blood Urine Nitrite Ur Leukocyte Esterase Urine RBC Urine WBC Ur Squamous Epith Cells Urine Bacteria Hyaline Casts <Saida Rios PA-C - Last Filed: 10/14/22 09:30> Procedures Date of Service Date of Service: 10/14/22 <Saida Rios PA-C - Last Filed: 10/14/22 09:30> 10/14/22 <Jaciel Jones MD - Last Filed: 10/14/22 09:35> Progress Note: A&P Assessment and plan (1) Diverticulitis of colon with perforation: Status: Acute <Saida Rios PA-C - Last Filed: 10/14/22 09:30> Assessment and Plan: 67 year old male admitted with diverticulitis with contained microperforation. He feels improved this morning with very mild abdominal tenderness upon exam. WBC improved this morning. Will cont conservative measures with IV zosyn. Advance to clear liquids. Will hold off on his eliquis, will resume tomorrow if remains stable. <Saida Rios PA-C - Last Filed: 10/14/22 09:30> 67 year old male admitted with diverticulitis with contained microperforation. He feels improved this morning with very mild abdominal tenderness upon exam. WBC improved this morning. Will cont conservative measures with IV zosyn. Advance to clear liquids. Will hold off on his eliquis, will resume tomorrow if remains stable. Agree with the above assessment and plan. First episode of diverticulitis with possible microperforation. Patient is much improved this morning with decreased abdominal pain and minimal tenderness to palpation. Plan to continue a ntibiotics start clear liquids. Patient understands and agrees with the plan. (director of medical staff services, Zarina assisted in our conversation). <Jaciel Jones MD - Last Filed: 10/14/22 09:35> Time Spent With Patient Time: Total time managing care of this patient today ____ minutes. <Saida Rios PA-C - Last Filed: 10/14/22 09:30> Quality Stroke Does the patient have a stroke diagnosis?: No <Saida Rios PA-C - Last Filed: 10/14/22 09:30> VTE Prior VTE?: No <Saida Rios PA-C - Last Filed: 10/14/22 09:30> VTE Risk Level:: Surgical - low <Saida Rios PA-C - Last Filed: 10/14/22 09:30> VTE Device Contraindication: N/A - Device Ordered <Saida Rios PA-C - Last Filed: 10/14/22 09:30> VTE Drug Contraindication: N/A - Med Ordered <Saida Rios PA-C - Last Filed: 10/14/22 09:30>
[2022-10-14] MEDS: Piperacillin Sodium/Tazobactam 3.375 GM in 0.9 % Sodium Chloride 50 ML IV ×3 (10:26→21:56)
[2022-10-14 15:27] VITALS: BP 136/62; PULSE 87; RESP 20; TEMP 36.7; O2SAT 95
[2022-10-14 19:32] VITALS: BP 135/64; PULSE 76; RESP 20; TEMP 36.3; O2SAT 96
[2022-10-14] MEDS: Metoprolol Tartrate 25 MG TABLET 75 MG PO (21:54)
[2022-10-14] MEDS: Enoxaparin Sodium 40 MG/0.4 ML SYRINGE SUBCUT (21:54)
[2022-10-14] MEDS: Prazosin HCL 1 MG CAPSULE PO (21:55)
[2022-10-14] MEDS: Sacubitril/Valsartan 24/26 1 TAB TABLET PO (21:55)
[2022-10-14] MEDS: Mirtazapine 15 MG TABLET PO (21:55)
[2022-10-14] MEDS: busPIRone HCl 10 MG TABLET 30 MG PO (21:55)
[2022-10-14] MEDS: Atorvastatin Calcium 10 MG TABLET PO (21:55)
[2022-10-14] MEDS: oxyCODONE HCl Immed Release 5 MG TABLET PO (22:00)
[2022-10-15] MEDS: 0.9 % Sodium Chloride 1,000 ML 100 ML IVCONT (01:31)
[2022-10-15] MEDS: 0.9 % Sodium Chloride Flush 3 ML SYRINGE IVFLUSH ×2 (01:31→23:29)
[2022-10-15 03:37] VITALS: BP 118/60; PULSE 52; RESP 18; TEMP 36.3; O2SAT 97
[2022-10-15] MEDS: Piperacillin Sodium/Tazobactam 3.375 GM in 0.9 % Sodium Chloride 50 ML IV ×4 (04:52→23:27)
[2022-10-15] MEDS: Omeprazole 20 MG CAPSULE.DR PO (05:31)
[2022-10-15 07:15] VITALS: BP 125/60; PULSE 54; RESP 20; TEMP 36.8; O2SAT 96
--- NOTE | 2022-10-15 08:02 | P.PNGS_ITS ---
Subjective Subjective Date of Service: 10/15/22 Interval history: Feels much better this morning. Denies any abdominal pain. Tolerated clear liquids yesterday. Passing flatus and had a BM. OOB to bathroom. Feels hungry and wants to eat. Physical Exam Vital Signs: Vital Signs: Last Vital Signs Temp 98.3 F 10/15/22 07:15 Pulse 54 10/15/22 07:15 Resp 20 10/15/22 07:15 BP 125/60 10/15/22 07:15 Pulse Ox 96 10/15/22 07:15 O2 Del Method Room Air 10/15/22 07:15 BMI result Body Mass Index 46.2 Const: General: comfortable, no acute distress and alert Orientation/consciousness: patient oriented x3 Resp: Effort & Inspection: normal respiratory effort GI: Inspection: No distended and Yes obesity Palpation (GI): Soft to palpation, Tenderness to palpation present (GI) (very mild to deep palpation LLQ), no guarding and not rigid Skin: General skin exam: no rashes or lesions noted Neuro: General: patient oriented x3 and moves all extremities Objective Data Active Medications Aripiprazole (Aripiprazole 10 Mg Tablet) 10 mg PO DAILY [facility] Atorvastatin Calcium (Atorvastatin Calcium 10 Mg Tablet) 10 mg PO BEDTIME [facility] Last Admin: 10/14/22 21:55 Dose: 10 mg Documented By: AYAZ Buspirone HCl (Buspirone Hcl 10 Mg Tablet) 30 mg PO BID [facility] Last Admin: 10/14/22 21:55 Dose: 30 mg Documented By: AYAZ Digoxin (Digoxin 0.125 Mg Tablet) 0.125 mg PO DAILY [facility] Enoxaparin Sodium (Enoxaparin Sodium 40 Mg/0.4 Ml Syringe) 40 mg SUBCUT Q24H [facility] Last Admin: 10/14/22 21:54 Dose: 40 mg Documented By: AYAZ Escitalopram Oxalate (Escitalopram Oxalate 20 Mg Tablet) 20 mg PO DAILY [facility] Furosemide (Furosemide 40 Mg Tablet) 40 mg PO DAILY [facility]; Protocol Gabapentin (Gabapentin 400 Mg Capsule) 400 mg PO DAILY [facility] Piperacillin Sod/Tazobactam (Sod 3.375 gm/ Sodium Chloride) 50 mls @ 100 mls/hr IV Q6H [facility] Last Infusion: 10/15/22 05:32 Dose: 0 mls/hr Documented By: TERRY Metoprolol Tartrate (Metoprolol Tartrate 25 Mg Tablet) 75 mg PO BID [facility]; Protocol Last Admin: 10/14/22 21:54 Dose: 75 mg Documented By: AYAZ Mirtazapine (Mirtazapine 15 Mg Tablet) 15 mg PO BEDTIME [facility] Last Admin: 10/14/22 21:55 Dose: 15 mg Documented By: AYAZ Morphine Sulfate (Morphine Sulfate 4 Mg/Ml Cartridge) 3 mg IVPUSH RQ4H PRN; Protocol PRN Reason: Pain, Severe (Pain Scale 7-10) Omeprazole (Omeprazole 20 Mg Capsule.Dr) 20 mg PO DAILY@0630 [facility] Last Admin: 10/15/22 05:31 Dose: 20 mg Documented By: TERRY Ondansetron HCl (Ondansetron Hcl 4 Mg/2 Ml Vial) 4 mg IVPUSH RQ4H PRN PRN Reason: Nausea and Vomiting Oxycodone HCl (Oxycodone Hcl Immed Release 5 Mg Tablet) 5 mg PO Q4H PRN PRN Reason: Pain, Moderate(Pain Scale 4-6) Last Admin: 10/14/22 22:00 Dose: 5 mg Documented By: AYAZ Pantoprazole Sodium (Pantoprazole Sodium 40 Mg/10 Ml Vial) 40 mg IVPUSH DAILY [facility] Last Admin: 10/14/22 08:59 Dose: 40 mg Documented By: LAURIE Prazosin HCl (Prazosin Hcl 1 Mg Capsule) 1 mg PO BEDTIME [facility]; Protocol Last Admin: 10/14/22 21:55 Dose: 1 mg Documented By: AYAZ Sacubitril/Valsartan (Sacubitril/Valsartan 1 Tab Tablet) 1 tab PO BID [facility]; Protocol Last Admin: 10/14/22 21:55 Dose: 1 tab Documented By: AYAZ Sodium Chloride (0.9 % Sodium Chloride Flush 3 Ml Syringe) [facility] Last Admin: 10/15/22 01:31 Dose: 3 ml Documented By: TERRY Labs 10/14/22 06:43 10/14/22 06:43 Microbiology Microbiology Results: Microbiology 10/13/22 13:25 Blood Culture - Preliminary Blood - Venous No growth after 24 hours. 10/13/22 13:25 Blood Culture - Preliminary Blood - Venous No growth after 24 hours. 10/13/22 15:27 Urine Culture - Preliminary Urine clean catch - Urine james top No growth to date. Procedures Date of Service Date of Service: 10/15/22 Progress Note: A&P Assessment and plan (1) Diverticulitis of colon with perforation: Status: Acute Plan 67 year old male admitted with his first episode of diverticulitis with contained microperforation. Improving with conservative measures, now asymptomatic and abdomen remains benign. Advance to diabetic low residue diet. Will resume eliquis, metformin. Home when tolerating diet on course of PO abx. Can f/u in office with Dr. Jones in 1 week. Time Spent With Patient Time: Total time managing care of this patient today ____ minutes. Quality Stroke Does the patient have a stroke diagnosis?: No VTE Prior VTE?: No VTE Risk Level:: Surgical - low VTE Device Contraindication: N/A - Device Ordered VTE Drug Contraindication: N/A - Med Ordered
[2022-10-15] MEDS: Metoprolol Tartrate 25 MG TABLET 75 MG PO ×2 (09:03→23:27)
[2022-10-15] MEDS: Apixaban 5 MG TABLET PO ×2 (09:03→23:28)
[2022-10-15] MEDS: metFORMIN HCl 500 MG TABLET PO (09:04)
[2022-10-15] MEDS: Escitalopram Oxalate 20 MG TABLET PO (09:04)
[2022-10-15] MEDS: Digoxin 0.125 MG TABLET PO (09:04)
[2022-10-15] MEDS: busPIRone HCl 10 MG TABLET 30 MG PO ×2 (09:04→23:28)
[2022-10-15] MEDS: Sacubitril/Valsartan 24/26 1 TAB TABLET PO ×2 (09:04→23:29)
[2022-10-15] MEDS: Furosemide 40 MG TABLET PO (09:04)
[2022-10-15] MEDS: Pantoprazole Sodium 40 MG/10 ML VIAL IVPUSH (09:04)
[2022-10-15] MEDS: ARIPiprazole 10 MG TABLET PO (09:04)
[2022-10-15] MEDS: Gabapentin 400 MG CAPSULE PO (09:04)
[2022-10-15 15:28] VITALS: BP 131/63; PULSE 57; RESP 18; TEMP 36.7; O2SAT 95
[2022-10-15 19:30] VITALS: BP 134/54; PULSE 68; RESP 16; TEMP 37.2; O2SAT 97
[2022-10-15] MEDS: Prazosin HCL 1 MG CAPSULE PO (23:28)
[2022-10-15] MEDS: Atorvastatin Calcium 10 MG TABLET PO (23:29)
[2022-10-15] MEDS: Mirtazapine 15 MG TABLET PO (23:29)
[2022-10-15 23:36] VITALS: BP 121/63; PULSE 67; O2SAT 95
[2022-10-16] MEDS: oxyCODONE HCl Immed Release 5 MG TABLET PO ×3 (00:22→16:26)
[2022-10-16 04:00] VITALS: BP 121/56; PULSE 52; RESP 20; TEMP 36.3; O2SAT 96
[2022-10-16] MEDS: Piperacillin Sodium/Tazobactam 3.375 GM in 0.9 % Sodium Chloride 50 ML IV ×4 (04:43→21:00)
[2022-10-16] MEDS: Omeprazole 20 MG CAPSULE.DR PO (05:15)
[2022-10-16 07:34] VITALS: BP 138/75; PULSE 59; RESP 20; TEMP 36.2; O2SAT 97
[2022-10-16] MEDS: Digoxin 0.125 MG TABLET PO (08:32)
[2022-10-16] MEDS: busPIRone HCl 10 MG TABLET 30 MG PO ×2 (08:32→21:00)
[2022-10-16] MEDS: metFORMIN HCl 500 MG TABLET PO (08:32)
[2022-10-16] MEDS: Pantoprazole Sodium 40 MG/10 ML VIAL IVPUSH (08:32)
[2022-10-16] MEDS: Escitalopram Oxalate 20 MG TABLET PO (08:32)
[2022-10-16] MEDS: Sacubitril/Valsartan 24/26 1 TAB TABLET PO ×2 (08:32→21:00)
[2022-10-16] MEDS: Gabapentin 400 MG CAPSULE PO (08:32)
[2022-10-16] MEDS: Metoprolol Tartrate 25 MG TABLET 75 MG PO ×2 (08:32→20:59)
[2022-10-16] MEDS: Furosemide 40 MG TABLET PO (08:32)
[2022-10-16] MEDS: ARIPiprazole 10 MG TABLET PO (08:33)
[2022-10-16] MEDS: Apixaban 5 MG TABLET PO ×2 (08:33→21:00)
[2022-10-16] MEDS: 0.9 % Sodium Chloride Flush 3 ML SYRINGE IVFLUSH ×2 (08:33→21:00)
--- NOTE | 2022-10-16 11:06 | P.PNGS_ITS ---
Subjective Subjective Date of Service: 10/16/22 Patient reports: still having pain Interval history: [place] [facility] [place] help of interpretive services He reports ongoing left lower quadrant pain but denies any chest pain, difficulty breathing or shortness of breath. He is passing gas. He denies any new complaints Physical Exam Vital Signs: Vital Signs: Last Vital Signs Temp 97.2 F 10/16/22 07:34 Pulse 59 10/16/22 07:34 Resp 20 10/16/22 07:34 BP 138/75 10/16/22 07:34 Pulse Ox 97 10/16/22 07:34 O2 Del Method Room Air 10/16/22 07:34 BMI result Body Mass Index 46.2 On exam, he is nontoxic He is in no acute respiratory distress His abdomen is morbidly obese and he reports ongoing left lower quadrant tenderness that is localized. His abdomen is otherwise nontender with no diffuse peritoneal sign Objective Data Active Medications Apixaban (Apixaban 5 Mg Tablet) 5 mg PO BID [facility] Last Admin: 10/16/22 08:33 Dose: 5 mg Documented By: JN Aripiprazole (Aripiprazole 10 Mg Tablet) 10 mg PO DAILY [facility] Last Admin: 10/16/22 08:33 Dose: 10 mg Documented By: JN Atorvastatin Calcium (Atorvastatin Calcium 10 Mg Tablet) 10 mg PO BEDTIME [facility] Last Admin: 10/15/22 23:29 Dose: 10 mg Documented By: ROSA Buspirone HCl (Buspirone Hcl 10 Mg Tablet) 30 mg PO BID [facility] Last Admin: 10/16/22 08:32 Dose: 30 mg Documented By: JN Digoxin (Digoxin 0.125 Mg Tablet) 0.125 mg PO DAILY [facility] Last Admin: 10/16/22 08:32 Dose: 0.125 mg Documented By: JN Escitalopram Oxalate (Escitalopram Oxalate 20 Mg Tablet) 20 mg PO DAILY [facility] Last Admin: 10/16/22 08:32 Dose: 20 mg Documented By: JN Furosemide (Furosemide 40 Mg Tablet) 40 mg PO DAILY [facility]; Protocol Last Admin: 10/16/22 08:32 Dose: 40 mg Documented By: JN Gabapentin (Gabapentin 400 Mg Capsule) 400 mg PO DAILY [facility] Last Admin: 10/16/22 08:32 Dose: 400 mg Documented By: JN Piperacillin Sod/Tazobactam (Sod 3.375 gm/ Sodium Chloride) 50 mls @ 100 mls/hr IV Q6H [facility] Last Infusion: 10/16/22 05:17 Dose: 0 mls/hr Documented By: FELICIA Metformin HCl (Metformin Hcl 500 Mg Tablet) 500 mg PO DAILY [facility] Last Admin: 10/16/22 08:32 Dose: 500 mg Documented By: JN Metoprolol Tartrate (Metoprolol Tartrate 25 Mg Tablet) 75 mg PO BID [facility]; Protocol Last Admin: 10/16/22 08:32 Dose: 75 mg Documented By: JN Mirtazapine (Mirtazapine 15 Mg Tablet) 15 mg PO BEDTIME [facility] Last Admin: 10/15/22 23:29 Dose: 15 mg Documented By: ROSA Morphine Sulfate (Morphine Sulfate 4 Mg/Ml Cartridge) 3 mg IVPUSH RQ4H PRN; Protocol PRN Reason: Pain, Severe (Pain Scale 7-10) Omeprazole (Omeprazole 20 Mg Capsule.Dr) 20 mg PO DAILY@0630 [facility] Last Admin: 10/16/22 05:15 Dose: 20 mg Documented By: FELICIA Ondansetron HCl (Ondansetron Hcl 4 Mg/2 Ml Vial) 4 mg IVPUSH RQ4H PRN PRN Reason: Nausea and Vomiting Oxycodone HCl (Oxycodone Hcl Immed Release 5 Mg Tablet) 5 mg PO Q4H PRN PRN Reason: Pain, Moderate(Pain Scale 4-6) Last Admin: 10/16/22 08:33 Dose: 5 mg Documented By: JN Pantoprazole Sodium (Pantoprazole Sodium 40 Mg/10 Ml Vial) 40 mg IVPUSH DAILY [facility] Last Admin: 10/16/22 08:32 Dose: 40 mg Documented By: JN Prazosin HCl (Prazosin Hcl 1 Mg Capsule) 1 mg PO BEDTIME [facility]; Protocol Last Admin: 10/15/22 23:28 Dose: 1 mg Documented By: ROSA Sacubitril/Valsartan (Sacubitril/Valsartan 1 Tab Tablet) 1 tab PO BID [facility]; Protocol Last Admin: 10/16/22 08:32 Dose: 1 tab Documented By: HO.RUANES Sodium Chloride (0.9 % Sodium Chloride Flush 3 Ml Syringe) 3 ml IVFLUSH QSHIFT [facility] Last Admin: 10/16/22 08:33 Dose: 3 ml Documented By: JN Labs 10/14/22 06:43 10/14/22 06:43 Microbiology Microbiology Results: Microbiology 10/13/22 13:25 Blood Culture - Preliminary Blood - Venous No growth after 48 hours. 10/13/22 13:25 Blood Culture - Preliminary Blood - Venous No growth after 48 hours. 10/13/22 15:27 Urine Culture - Final Urine clean catch - Urine james top Procedures Date of Service Date of Service: 10/16/22 Progress Note: A&P Assessment and plan (1) Diverticulitis of colon with perforation: Status: Acute (2) CHF (congestive heart failure): Status: Acute (3) Cardiomegaly: Status: Acute (4) Morbid obesity due to excess calories: Status: Acute Plan Patient reports ongoing left lower quadrant pain Will reassess CBC in the morning, re-evaluate the patient for possible discharge. Continue IV antibiotics in the meantime. Time Spent With Patient Time: Total time managing care of this patient today ____ minutes. Quality Stroke Does the patient have a stroke diagnosis?: No VTE Prior VTE?: No VTE Risk Level:: Surgical - low VTE Device Contraindication: N/A - Device Ordered VTE Drug Contraindication: N/A - Med Ordered
[2022-10-16 15:28] VITALS: BP 127/58; PULSE 54; RESP 18; TEMP 36.4; O2SAT 95
[2022-10-16 19:57] VITALS: BP 121/58; PULSE 100; RESP 17; TEMP 36.4; O2SAT 98
[2022-10-16] MEDS: Prazosin HCL 1 MG CAPSULE PO (21:00)
[2022-10-16] MEDS: Mirtazapine 15 MG TABLET PO (21:00)
[2022-10-16] MEDS: Atorvastatin Calcium 10 MG TABLET PO (21:00)
[2022-10-17 03:19] VITALS: BP 120/65; PULSE 65; RESP 17; TEMP 36.6; O2SAT 98
[2022-10-17] MEDS: Piperacillin Sodium/Tazobactam 3.375 GM in 0.9 % Sodium Chloride 50 ML IV ×2 (03:30→09:26)
[2022-10-17] MEDS: Omeprazole 20 MG CAPSULE.DR PO (05:40)
[2022-10-17 06:18] LABS: MANUAL DIFF FLAG NO
[2022-10-17 06:22] LABS: Basophils Absolute Auto 0.1 X10*3/uL (0.0-0.2); Eosinophils Absolute Auto 0.3 X10*3/uL (0.0-0.4); Eosinophils Percent Auto 3.3 % (0-4); Hematocrit 40.3 % (42.0-52.0); Hemoglobin 13.2 g/dl (14.0-18.0); Imm Gran Abs Auto 0.14 X10*3/uL (0.00-0.03); Imm Gran Pct Auto 1.5 % (0.0-0.4); Lymphocytes Absolute Auto 2.7 X10*3/uL (1.2-4.9); Lymphocytes Percent Auto 29.2 % (20-40); Mean Corpuscular HGB Conc 32.8 g/dl (31.0-36.0); Mean Corpuscular Hemoglobin 30.3 pg (27.0-33.0); Mean Corpuscular Volume 92.6 fL (80.0-98.0); Mean Platelet Volume 10.8 fL (9.4-12.4); Monocytes Absolute Auto 0.9 X10*3/uL (0.1-1.2); Monocytes Percent Auto 9.5 % (2-11); Neutrophils Absolute Auto 5.1 x10*3/uL (2.0-8.3); Neutrophils Percent Auto 55.5 % (45-73); Platelet Count 238 X10*3/uL (160-400); Red Blood Count 4.35 X10*6/uL (4.60-5.80); Red Cell Distribution Width 14.2 % (11.0-16.0); White Blood Count 9.3 X10*3/uL (4.8-10.8)
[2022-10-17 07:49] VITALS: BP 118/58; PULSE 64; RESP 20; TEMP 37.1; O2SAT 96
[2022-10-17] MEDS: busPIRone HCl 10 MG TABLET 30 MG PO (09:22)
[2022-10-17] MEDS: ARIPiprazole 10 MG TABLET PO (09:23)
[2022-10-17] MEDS: Sacubitril/Valsartan 24/26 1 TAB TABLET PO (09:23)
[2022-10-17] MEDS: Furosemide 40 MG TABLET PO (09:23)
[2022-10-17] MEDS: Metoprolol Tartrate 25 MG TABLET 75 MG PO (09:23)
[2022-10-17] MEDS: Gabapentin 400 MG CAPSULE PO (09:23)
[2022-10-17] MEDS: Apixaban 5 MG TABLET PO (09:23)
[2022-10-17] MEDS: Digoxin 0.125 MG TABLET PO (09:23)
[2022-10-17] MEDS: metFORMIN HCl 500 MG TABLET PO (09:23)
[2022-10-17] MEDS: Escitalopram Oxalate 20 MG TABLET PO (09:23)
[2022-10-17] MEDS: 0.9 % Sodium Chloride Flush 3 ML SYRINGE IVFLUSH (09:26)
--- NOTE | 2022-10-17 10:15 | P.PNGS_ITS ---
Subjective Subjective Date of Service: 10/17/22 Patient reports: no new complaints, feels better, tolerating a regular diet, flatus and bowel movement Interval history: The patient reports that he is feeling better, tolerating his diet has no pain, difficulty breathing or shortness of breath and is ready for discharge Physical Exam Vital Signs: Vital Signs: Last Vital Signs Temp 98.7 F 10/17/22 07:49 Pulse 64 10/17/22 07:49 Resp 20 10/17/22 07:49 BP 118/58 L 10/17/22 07:49 Pulse Ox 96 10/17/22 07:49 O2 Del Method Room Air 10/17/22 07:49 BMI result Body Mass Index 46.2 On exam he is in good spirits He is in no acute respiratory distress His abdomen is morbidly obese and soft with no left lower quadrant tenderness Objective Data Active Medications Apixaban (Apixaban 5 Mg Tablet) 5 mg PO BID [facility] Last Admin: 10/17/22 09:23 Dose: 5 mg Documented By: RICHAR Aripiprazole (Aripiprazole 10 Mg Tablet) 10 mg PO DAILY [facility] Last Admin: 10/17/22 09:23 Dose: 10 mg Documented By: RICHAR Atorvastatin Calcium (Atorvastatin Calcium 10 Mg Tablet) 10 mg PO BEDTIME [facility] Last Admin: 10/16/22 21:00 Dose: 10 mg Documented By: JACQUELINERISSylvester Buspirone HCl (Buspirone Hcl 10 Mg Tablet) 30 mg PO BID [facility] Last Admin: 10/17/22 09:22 Dose: 30 mg Documented By: RICHAR Digoxin (Digoxin 0.125 Mg Tablet) 0.125 mg PO DAILY [facility] Last Admin: 10/17/22 09:23 Dose: 0.125 mg Documented By: RICHAR Escitalopram Oxalate (Escitalopram Oxalate 20 Mg Tablet) 20 mg PO DAILY [facility] Last Admin: 10/17/22 09:23 Dose: 20 mg Documented By: RICHAR Furosemide (Furosemide 40 Mg Tablet) 40 mg PO DAILY [facility]; Protocol Last Admin: 10/17/22 09:23 Dose: 40 mg Documented By: RICHAR Gabapentin (Gabapentin 400 Mg Capsule) 400 mg PO DAILY [facility] Last Admin: 10/17/22 09:23 Dose: 400 mg Documented By: RICHAR Piperacillin Sod/Tazobactam (Sod 3.375 gm/ Sodium Chloride) 50 mls @ 100 mls/hr IV Q6H [facility] Last Infusion: 10/17/22 10:03 Dose: 0 mls/hr Documented By: RICHAR Metformin HCl (Metformin Hcl 500 Mg Tablet) 500 mg PO DAILY [facility] Last Admin: 10/17/22 09:23 Dose: 500 mg Documented By: RICHAR Metoprolol Tartrate (Metoprolol Tartrate 25 Mg Tablet) 75 mg PO BID [facility]; Protocol Last Admin: 10/17/22 09:23 Dose: 75 mg Documented By: RICHAR Mirtazapine (Mirtazapine 15 Mg Tablet) 15 mg PO BEDTIME [facility] Last Admin: 10/16/22 21:00 Dose: 15 mg Documented By: MARCE Morphine Sulfate (Morphine Sulfate 4 Mg/Ml Cartridge) 3 mg IVPUSH RQ4H PRN; Protocol PRN Reason: Pain, Severe (Pain Scale 7-10) Omeprazole (Omeprazole 20 Mg Capsule.Dr) 20 mg PO DAILY@0630 [facility] Last Admin: 10/17/22 05:40 Dose: 20 mg Documented By: MARCE Ondansetron HCl (Ondansetron Hcl 4 Mg/2 Ml Vial) 4 mg IVPUSH RQ4H PRN PRN Reason: Nausea and Vomiting Oxycodone HCl (Oxycodone Hcl Immed Release 5 Mg Tablet) 5 mg PO Q4H PRN PRN Reason: Pain, Moderate(Pain Scale 4-6) Last Admin: 10/16/22 16:26 Dose: 5 mg Documented By: JN Prazosin HCl (Prazosin Hcl 1 Mg Capsule) 1 mg PO BEDTIME [facility]; Protocol Last Admin: 10/16/22 21:00 Dose: 1 mg Documented By: MARCE Sacubitril/Valsartan (Sacubitril/Valsartan 1 Tab Tablet) 1 tab PO BID [facility]; Protocol Last Admin: 10/17/22 09:23 Dose: 1 tab Documented By: RICHAR Sodium Chloride (0.9 % Sodium Chloride Flush 3 Ml Syringe) 3 ml IVFLUSH QSHIFT [facility] Last Admin: 10/17/22 09:26 Dose: 3 ml Documented By: RICHAR Labs 10/17/22 05:33 10/14/22 06:43 Labs: Laboratory Results - last 24 hr 10/17/22 05:33 MCV 92.6 MCH 30.3 MCHC 32.8 RDW 14.2 Plt Count 238 MPV 10.8 Immature Gran % (Auto) 1.5 H Neut % (Auto) 55.5 Lymph % (Auto) 29.2 Rooks % (Auto) 9.5 Eos % (Auto) 3.3 Baso % (Auto) 1.0 Lymph # (Auto) 2.7 Rooks # (Auto) 0.9 Eos # (Auto) 0.3 Baso # (Auto) 0.1 Abs Immat Gran (auto) 0.14 H Absolute Neuts (auto) 5.1 Absolute Nucleated RBC 0.000 Nucleated RBC % (auto) 0.0 Procedures Date of Service Date of Service: 10/17/22 Progress Note: A&P Assessment and plan (1) Diverticulitis of colon with perforation: Status: Acute (2) CHF (congestive heart failure): Status: Acute (3) Cardiomegaly: Status: Acute (4) Morbid obesity due to excess calories: Status: Acute Plan Stable for discharge Follow-up as outpatient with Dr. Jones Time Spent With Patient Time: Total time managing care of this patient today ____ minutes. Quality Stroke Does the patient have a stroke diagnosis?: No VTE Prior VTE?: No VTE Risk Level:: Surgical - low VTE Device Contraindication: N/A - Device Ordered VTE Drug Contraindication: N/A - Med Ordered
--- NOTE | 2022-10-17 11:41 | MHC.CM.PN ---
IMM 10/17/22 Patient is discharged today. Home services [facility] and [employer] [facility] will resume. [facility] has been notified of discharge. A VM was left for his Visiting nurse Cherelle. Patients [employer] will provide transportation home.
--- NOTE | 2022-10-18 10:15 | P.DS_ITS ---
DS: Providers Provider Date of Service: 10/17/22 Date of admission: 10/13/22 19:23 Primary care physician: Joey Manzo Attending physician on admission: Kitty Virgen Attending physician on discharge: Adrien Alvarez DS: Diagnosis Discharge Diagnosis (1) Diverticulitis of colon with perforation: Status: Acute (2) CHF (congestive heart failure): Status: Acute (3) Cardiomegaly: Status: Acute (4) Morbid obesity due to excess calories: Status: Acute DS: Summary Hospital Course Hospital Course: HPI AT ADMISSION: Chris Parham is a 67 year old male who has been having abdominal pain for the last 4 days. He comes in now because it is ongoing. He has never had pain like this before. He says he has had a colonoscopy many years ago. He was not aware that he had diverticulitis. He says that he is scheduled to have another colonoscopy in March 2023. He denies any fevers or chills just abdominal pain. He has umbilical hernia for many years and has never had it repaired. He has had no abdominal surgeries before. White count elevated at 17; CT scan showing evidence of diverticulitis with localized perforation. HOSPITAL COURSE: The patient was admitted to the surgical service for further treatment of the acute diverticulitis with contained perforation. He improved with conservative measures and his symptoms gradually resolved. His diet was slowly advanced from clear liquids to low residue. He was ambulated. He began moving his bowels. He remained inpatient for IV zosyn for 4 days. At the time of discharge, he had no abdominal pain, was tolerating a solid diet without nausea/vomiting or pain, had a benign abdomen. He felt ready for discharge. He was discharged to home on PO Augmentin for a week. He is to follow up in the office in 1 week. Status at Discharge Functional status at discharge: independent ambulation Overall status at discharge: patient is progressing back to baseline Time Spent with Patient Time attestation: Total time managing care of this patient today ____ minutes. Discharge coordination time: Less than 30 minutes Quality: Safe Use of Opioids Does Pt have an Active Cancer Diagnosis on the Problem List?: No Quality: Stroke Does the patient have a stroke diagnosis?: No Physical Exam Vital Signs: Vital Signs: Last Vital Signs Temp 98.7 F 10/17/22 07:49 Pulse 64 10/17/22 07:49 Resp 20 08/20/23 07:49 BP 118/58 L 10/17/22 07:49 Pulse Ox 96 10/17/22 07:49 O2 Del Method Room Air 10/17/22 07:49 BMI result Body Mass Index 46.2 Const: General: comfortable, no acute distress and alert Orientation/consciousness: patient oriented x3 GI: Inspection: No distended Palpation (GI): Soft to palpation, nontender and no guarding Skin: General skin exam: no rashes or lesions noted Neuro: General: patient oriented x3 DS: Data Data Completed and Pending Labs on day of discharge: Preliminary micro results at discharge 10/13/22 13:25 Blood Culture - Preliminary Blood - Venous No growth after 48 hours. 10/13/22 13:25 Blood Culture - Preliminary Blood - Venous No growth after 48 hours. Discharge Plan Discharge Anticipated Discharge Date/Time: 10/15/22 15:31 Patient Disposition: Home Health Service Discharge Diagnosis: sigmoid diverticulitis Referrals: [facility] [Other] - 1 Week (Follow up with PCP) [facility] [Outside] - 1 Week Jaciel Jones MD [Physician] - 2 Weeks [facility] [Primary Care Provider] - 1 Week Discharge Medications: New amoxicillin-pot clavulanate 875-125 mg tablet 1 tab PO BID Qty: 14 0RF Continued cyclobenzaprine 5 mg tablet 5 mg PO TID 5 Days Qty: 15 0RF ketorolac 10 mg tablet 10 mg PO QID 5 Days Qty: 20 0RF furosemide 40 mg tablet 40 mg PO DAILY metformin 500 mg tablet 500 mg PO DAILY prazosin 1 mg capsule 1 mg PO BEDTIME gabapentin 400 mg capsule 400 mg PO DAILY pantoprazole 40 mg tablet,delayed release (DR/EC) 40 mg PO DAILY simvastatin 20 mg tablet 20 mg PO BEDTIME buspirone 30 mg tablet 30 mg PO BID metoprolol tartrate 50 mg tablet 75 mg PO BID digoxin 125 mcg (0.125 mg) tablet 125 mcg PO DAILY mirtazapine 15 mg tablet 15 mg PO BEDTIME escitalopram oxalate 20 mg tablet 20 mg PO DAILY aripiprazole 10 mg tablet 10 mg PO DAILY Eliquis 5 mg tablet 5 mg PO BID Entresto 24-26 mg tablet 1 tab PO BID Discharge Orders: Discharge Order (Routine); Ordered 10/17/22 Ordered By: Adrien Alvarez Diet: Diabetic diet Activity on Discharge: As tolerated Stand Alone Forms: Patient Portal Discharge page Activity Restrictions/Additional Instructions: Follow up in office in two weeks. ([phone]) Call Your Doctor If: ? ? -Your temperature exceeds 101.5? F? ? ? -You experience excessive pain or swelling ? ? -You have an unexpected reaction to medication ? ? -You experience continued vomiting/nausea Care Plan Goals: Resolution of diverticulitis Return to normal activities Health Concerns: sigmoid diverticulitis diabetes mellitus a fib Plan of Treatment: Supportive with bowel rest, antibiotics F/u in office in 2 weeks Assessment: improved Patient Instructions: Diverticulitis (DC) Discharge Date/Time: 10/17/22 13:00
--- NOTE | 2022-10-20 10:44 | P.CDIM_ITS ---
PROVIDER RESPONSE TEXT: To clarify, the appropriate diagnosis supported by the clinical indicators: Obesity Due to excess calories QUERY TEXT: PHYSICIAN'S DOCUMENTATION REQUEST Date of Query: 10/15/2022 11:55 AM EDT Patient Name: JA ARMSTRONG Admit Date: 10/13/2022 Dear Jaciel Jones, A review of the medical record indicates additional documentation may be needed. Please review below and update the documentation accordingly. Clinical Indicators: Height: ( ) 5'7 Weight: ( ) 133.81 kg BMI: ( ) 46.2 If possible, please provide an associated diagnosis related to the abnormal BMI, such as: Overweight Obesity Due to excess calories Obesity Drug induced Obesity Due to other cause Specify the other cause Severe or Morbid Obesity BMI is not significant Other (explain)Clinically unable to determine (explain)Thank you, Carmen Jorge RN Use of terms such as suspected, likely, concern for, or probable (associated with a specific diagnosi s that is being evaluated, monitored, or treated as if it exists) are acceptable and can be coded in the inpatient se tting, when documented at the time of discharge. Please use your independent medical judgment in providing your response. THIS QUERY IS PART OF THE PERMANENT MEDICAL RECORD
== END 2022-10-17 13:00 | disposition home health service (06) | DRG 392 ==
LOC: HO.ED 18:37 → HO.EDOVER 19:31 → HO.IMC 20:10 → HO.S3 10-16 18:06
PROVIDERS: Physician Assistant; Surgery; Admitting Provider Surgery; Emergency Provider Emergency Medicine; Visit Provider Surgery
DX: K57.20 Diverticulitis of large intestine with perforation and abscess without bleeding (principal); Z68.42 Body mass index [BMI] 45.0-49.9, adult; E66.01 Morbid (severe) obesity due to excess calories; F41.0 Panic disorder [episodic paroxysmal anxiety]; Z79.01 Long term (current) use of anticoagulants; Z79.84 Long term (current) use of oral hypoglycemic drugs; Z79.899 Other long term (current) drug therapy
CPT/HCPCS: 36415; 74177; 80048; 80076; 81001; 81003; 83605; 83690; 83735; 85025; 87040; 87086; 99284; J0696; J1650; J2270; J2405; J2543; Q9967

== ENCOUNTER → 2022-10-13 19:23 | Outpatient (BNV) | payer MEDICARE, MEDICAID, SELFPAY | PROVIDERS: Admitting Provider Surgery; Emergency Provider Emergency Medicine; Visit Provider Surgery | DX: K57.20 Diverticulitis of large intestine with perforation and abscess without bleeding (principal); I50.9 Heart failure, unspecified; I51.7 Cardiomegaly; E66.01 Morbid (severe) obesity due to excess calories | CPT/HCPCS: 99222; 99231; 99232; 99238; 99499 ==

== ENCOUNTER 2023-07-26 16:14 | Emergency (ER) | payer MEDICARE, MEDICAID, SELFPAY ==
--- NOTE | ~2023-07-26 | CT_ITS ---
EXAMINATION: CT HEAD WITHOUT CONTRAST CLINICAL INFORMATION: Head-pressure dizziness COMPARISON: None available. TECHNIQUE: Contiguous axial imaging was performed from the skull base to vertex without intravenous administration of contrast. This CT examination was performed using dose optimization techniques as appropriate, variously including the following: *Automated exposure control *Adjustment of mA and/or kV according to patient size (this includes techniques or standardized protocols for targeted exams where dose is matched to indication/reason for exam; i.e. extremities or head) *Use of iterative reconstruction technique DLP: 613 mGy-cm FINDINGS: There is no evidence of acute intracranial hemorrhage or territorial infarction. Chronic white matter small vessel ischemic changes. Mild cerebral atrophy. No abnormal mass effect or midline shift is seen. White to white matter differentiation is well preserved. No extra-axial fluid collections are identified. The ventricles are normal in size. There is no abnormal attenuation within the brain parenchyma. The osseous structures and soft tissues are normal. The mastoid air cells and visualized portions of the paranasal sinuses are well aerated. CT/CT head/brain wo IV con IMPRESSION: 1. No acute intracranial pathology. 2. Chronic white matter small vessel ischemic changes.
[2023-07-26 16:50] VITALS: BP 118/45; PULSE 50; RESP 18; TEMP 36.2; O2SAT 94; BMI 46.6
--- NOTE | 2023-07-26 16:51 | ED.GENADULT ---
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 ? He reports his symptoms started 1 week ago. He states the pressure feels like it is in the top of his head only. He denies any head trauma or falls. He denies any fevers, chills, neck pain. Denies any chest pain or lightheadedness. He states he feels like ?I am spinning. ? Denies any ear pain. He is unsure if he is any history of vertigo He walks with a cane at baseline and this is unchanged even since his symptoms started Related Data Home Medications ?Medication ?Instructions ?Recorded ?Confirmed apixaban 5 mg tablet (Eliquis) 5 mg PO BID 10/13/22 10/13/22 aripiprazole 10 mg tablet 10 mg PO DAILY 10/13/22 10/13/22 buspirone 30 mg tablet 30 mg PO BID 10/13/22 10/13/22 digoxin 125 mcg (0.125 mg) tablet 125 mcg PO DAILY 10/13/22 10/13/22 escitalopram oxalate 20 mg tablet 20 mg PO DAILY 10/13/22 10/13/22 furosemide 40 mg tablet 40 mg PO DAILY 10/13/22 10/13/22 gabapentin 400 mg capsule 400 mg PO DAILY 10/13/22 10/13/22 metformin 500 mg tablet 500 mg PO DAILY 10/13/22 10/13/22 metoprolol tartrate 50 mg tablet 75 mg PO BID 10/13/22 10/13/22 mirtazapine 15 mg tablet 15 mg PO BEDTIME 10/13/22 10/13/22 pantoprazole 40 mg tablet,delayed 40 mg PO DAILY 10/13/22 10/13/22 release prazosin 1 mg capsule 1 mg PO BEDTIME 10/13/22 10/13/22 sacubitril 24 mg-valsartan 26 mg 1 tab PO BID 10/13/22 10/13/22 tablet (Entresto) simvastatin 20 mg tablet 20 mg PO BEDTIME 10/13/22 10/13/22 Previous Rx's ?Medication ?Instructions ?Recorded cyclobenzaprine 5 mg tablet 5 mg PO TID 5 days #15 tabs 11/24/20 ketorolac 10 mg tablet 10 mg PO QID 5 days #20 tabs 11/24/20 amoxicillin 875 mg-potassium 1 tab PO BID #14 tabs 10/15/22 clavulanate 125 mg tablet meclizine 25 mg tablet 25 mg PO TID PRN dizziness #20 tabs 07/26/23 Allergies Allergy/AdvReac Type Severity Reaction Status Date / Time No Known Allergies Allergy Verified 07/26/23 16:51 Review of Systems Constitutional: Constitutional: Denies body ache(s), Denies chills, Denies fever(s) and Reports headache(s) Eyes: Eyes: Denies blurry vision ENT: Reports vertigo, Reports dizziness, Reports headache(s) and Denies sore throat Cardiovascular: Cardiovascular: Denies chest pain and Denies dyspnea Respiratory: Respiratory: Denies cough and Denies dyspnea Gastrointestinal: Gastrointestinal: Denies abdominal pain, Denies nausea and Denies vomiting Musculoskeletal: Musculoskeletal: Denies back pain Integumentary/Breasts: Skin/Breast: Denies rash Neurologic: Denies burning sensations, Denies confusion, Reports vertigo, Reports dizziness and Reports headache(s) Psychiatric: Psychiatric: Denies confusion [facility] Past Medical History Medical History (Updated 07/26/23 @ 23:32 by Dg Vee) CHF (congestive heart failure) Cardiomegaly Hypertension Panic anxiety syndrome Anxiety Depression Social History Social History Household Members: None Housing: Apartment Do you presently have visiting nurse or other home services: Yes ([employer]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) Alcohol intake: never Patient Tobacco Use Status: Never used Tobacco Advance Directives: No Advance Directives Information Provided: No Do you have a plan to hurt others: No Plan service: No Physical Exam ED Vital Signs: Vital Signs - 24 hr 07/26/23 16:50 07/26/23 21:04 07/26/23 21:49 Temperature 97.2 F 99.3 F Pulse Rate 50 54 52 Respiratory Rate 18 18 16 Blood Pressure 118/45 L 117/62 114/66 Pulse Oximetry 94 95 Oxygen Delivery Method Room Air Room Air BMI result Body Mass Index 46.6 Const General: No confusion Nutritional Appearance: well nourished Orientation/consciousness: No confusion HENMT Head: Yes normocephalic and Yes atraumatic Ears: external ears normal and TM's abnormal bilaterally (Bilateral middle ear effusion without erythema) Face and sinus: Yes sinuses nontender Throat: Yes posterior oropharynx normal Eyes Eyelids: Yes eyelids normal Conjunctivae: conjunctivae normal Sclerae: sclerae normal Corneas: corneas normal Pupils: Equal, round and reactive pupils present EOM: EOMs intact bilaterally Neck Neck: Yes full ROM Resp Effort & Inspection: normal respiratory effort, able to speak in complete sentences and not labored GI Inspection: No distended Palpation (GI): Soft to palpation, not firm, nontender, no guarding and not rigid Skin General skin exam: elasticity normal Neuro General: No confusion Cranial nerves: Yes CN's II-XII intact bilaterally, Yes Equal, round and reactive pupils present and Yes Bilaterally intact EOM present Cognition (Neuro): normal cognition Motor exam (neuro): 5/5 motor strength present throughout Coordination: [id number] test normal, tandem gait normal and Romberg test negative Extrem Other: Moving all extremities well without any obvious deformities Course Course Course Narrative: RME performed by Anna Farrar PA-C. Patient is a 68 year old assigned male at presenting to the emergency department with head pressure and dizziness. Patient states that over the last week he has had pressure in the top of his head with dizziness. Patient has Eliquis listed in his med list but when asked, he states that he does not take it. Detailed physical exam and review of systems are deferred to the ventilating expert. Labs, imaging, and swabs ordered. Patient placed back in the waiting room pending room availability and results. Reevaluation(s) Reevaluation #1: Patient reports that his symptoms resolved after receiving meclizine. We will discharge the patient with meclizine for peripheral vertigo Time: 23:31 Medications Administered Discontinued Medications Generic Name Dose Route Start Last Admin Trade Name Freq PRN Reason Stop Dose Admin Meclizine HCl 50 mg 07/26/23 22:28 07/26/23 22:40 Meclizine Hcl 25 Mg Tablet PO 07/26/23 22:29 50 mg ONCE ONE Administration Medical Decision Making Medical Decision Making MDM Narrative: 68-year-old male presents for evaluation of dizziness and headache. He has no focal deficits, he has a negative cerebellar exam. He does have bilateral middle ear effusions which may contribute to peripheral vertigo. We will treat with meclizine and re-evaluate. His workup in the ER is largely unremarkable. He has a slight leukocytosis to 11.7 but no obvious cause of infection. His sinuses are nontender. He does have a middle ear effusion but no evidence of otitis media. CT scan of the brain is unremarkable. Patient's vital signs are within normal limits, heart rate in the 50s and regular. Differential Diagnosis Differential Diagnoses: The differential diagnosis associated with the presentation includes Dehydration SHYAM Orthostasis Middle ear effusion Peripheral vertigo Central vertigo Intracranial mass Admission/Observation Consideration of admission/observation: Escalation of care including admission/observation considered Lab Data [facility] Lab Attestation statement: I reviewed the patient's lab results. See medical decision making 07/26/23 17:14 07/26/23 17:14 Labs: Lab Results 07/26/23 Range/Units 17:14 WBC 11.7 H (4.8-10.8) X10*3/uL RBC 5.04 (4.60-5.80) X10*6/uL Hgb 15.1 (14.0-18.0) g/dl Hct 46.3 (42.0-52.0) % MCV 91.9 (80.0-98.0) fL MCH 30.0 (27.0-33.0) pg MCHC 32.6 (31.0-36.0) g/dl RDW 13.2 (11.0-16.0) % Plt Count 294 (160-400) X10*3/uL MPV 9.6 (9.4-12.4) fL Immature Gran % (Auto) 0.7 H (0.0-0.4) % Neut % (Auto) 73.2 H (45-73) % Lymph % (Auto) 16.7 L (20-40) % [place] % (Auto) 7.3 (2-11) % Eos % (Auto) 1.5 (0-4) % Baso % (Auto) 0.6 (0-2) % Lymph # (Auto) 2.0 (1.2-4.9) X10*3/uL [place] # (Auto) 0.9 (0.1-1.2) X10*3/uL Eos # (Auto) 0.2 (0.0-0.4) X10*3/uL Baso # (Auto) 0.1 (0.0-0.2) X10*3/uL Abs Immat Gran (auto) 0.08 H (0.00-0.03) X10*3/uL Absolute Neuts (auto) 8.6 H (2.0-8.3) x10*3/uL Absolute Nucleated RBC 0.000 (0.0-0.012) X10*3/uL Nucleated RBC % (auto) 0.0 (0.0-0.2) /100WBC PT 17.8 H (11.1-13.3) SEC INR 1.5 H (0.9-1.1) APTT 33.1 (26.0-36.8) SEC Sodium 146 H (135-145) mmol/L Potassium 4.1 (3.3-5.1) mmol/L Chloride 110 H (96-108) mmol/L Carbon Dioxide 27 (22-29) mmol/L Anion Gap 13 (12-20) BUN 18 H (9-16) mg/dL Creatinine 0.92 (0.5-1.4) mg/dL Estim Creat Clear Calc 103.2 Estimated GFR > 60 Random Glucose 101 (60-115) mg/dL Calcium 9.2 (8.4-10.2) mg/dL Magnesium 2.0 (1.6-2.6) mg/dL Total Bilirubin 0.4 (0.0-1.0) mg/dL AST 28 (5-37) U/L ALT 25 (0-40) U/L Alkaline Phosphatase 76 (39-117) U/L Total Protein 6.8 (6.5-8.0) g/dL Albumin 3.7 (3.5-5.0) g/dL Influenza Type A (PCR) NEGATIVE (Negative) Influenza Type B (PCR) NEGATIVE (Negative) RSV RNA Qual (PCR) NEGATIVE (Negative) SARS-CoV-2 RNA (RT-PCR) NEGATIVE (Negative) Radiology Impression Discussion of test interpretation with radiology: I have reviewed the radiologist's reading. Radiologist Impression: CT/CT head/brain wo IV con IMPRESSION: 1. No acute intracranial pathology. 2. Chronic white matter small vessel ischemic changes. Discharge Plan Discharge Clinical Impression: Vertigo Patient Disposition: Home, Self-Care Instructions: Vertigo (ED) Additional Instructions: Take meclizine up to 3 times daily as needed for dizziness. Take all your medications as prescribed Follow-up with your primary doctor Return for new or worsening symptoms Prescriptions: New meclizine 25 mg tablet 25 mg PO TID PRN (Reason: dizziness) Qty: 20 0RF No Action cyclobenzaprine 5 mg tablet 5 mg PO TID 5 Days Qty: 15 0RF ketorolac 10 mg tablet 10 mg PO QID 5 Days Qty: 20 0RF furosemide 40 mg tablet 40 mg PO DAILY metformin 500 mg tablet 500 mg PO DAILY prazosin 1 mg capsule 1 mg PO BEDTIME gabapentin 400 mg capsule 400 mg PO DAILY pantoprazole 40 mg tablet,delayed release (DR/EC) 40 mg PO DAILY simvastatin 20 mg tablet 20 mg PO BEDTIME buspirone 30 mg tablet 30 mg PO BID metoprolol tartrate 50 mg tablet 75 mg PO BID digoxin 125 mcg (0.125 mg) tablet 125 mcg PO DAILY mirtazapine 15 mg tablet 15 mg PO BEDTIME escitalopram oxalate 20 mg tablet 20 mg PO DAILY aripiprazole 10 mg tablet 10 mg PO DAILY Eliquis 5 mg tablet 5 mg PO BID Entresto 24-26 mg tablet 1 tab PO BID amoxicillin-pot clavulanate 875-125 mg tablet 1 tab PO BID Qty: 14 0RF Print Language: [place] Citizen
[2023-07-26 17:18] LABS: MANUAL DIFF FLAG NO
[2023-07-26 17:21] LABS: Basophils Absolute Auto 0.1 X10*3/uL (0.0-0.2); Basophils Percent Auto 0.6 % (0-2); Eosinophils Absolute Auto 0.2 X10*3/uL (0.0-0.4); Eosinophils Percent Auto 1.5 % (0-4); Hematocrit 46.3 % (42.0-52.0); Hemoglobin 15.1 g/dl (14.0-18.0); Imm Gran Abs Auto 0.08 X10*3/uL (0.00-0.03); Imm Gran Pct Auto 0.7 % (0.0-0.4); Lymphocytes Percent Auto 16.7 % (20-40); Mean Corpuscular HGB Conc 32.6 g/dl (31.0-36.0); Mean Corpuscular Volume 91.9 fL (80.0-98.0); Mean Platelet Volume 9.6 fL (9.4-12.4); Monocytes Absolute Auto 0.9 X10*3/uL (0.1-1.2); Monocytes Percent Auto 7.3 % (2-11); Neutrophils Absolute Auto 8.6 x10*3/uL (2.0-8.3); Neutrophils Percent Auto 73.2 % (45-73); Platelet Count 294 X10*3/uL (160-400); Red Blood Count 5.04 X10*6/uL (4.60-5.80); Red Cell Distribution Width 13.2 % (11.0-16.0); White Blood Count 11.7 X10*3/uL (4.8-10.8)
[2023-07-26 17:24] LABS: INTERNATIONAL NORM RATIO 1.5 (0.9-1.1); Prothrombin Time 17.8 SEC (11.1-13.3)
[2023-07-26 17:27] LABS: Partial Thromboplastin Time 33.1 SEC (26.0-36.8)
[2023-07-26 17:32] LABS: Alanine Aminotransferase 25 U/L (0-40); Albumin Level 3.7 g/dL (3.5-5.0); Alkaline Phosphatase 76 U/L (39-117); Anion Gap 13 (12-20); Aspartate Amino Transferase 28 U/L (5-37); Bilirubin Total 0.4 mg/dL (0.0-1.0); Blood Urea Nitrogen 18 mg/dL (9-16); Calcium 9.2 mg/dL (8.4-10.2); Carbon Dioxide 27 mmol/L (22-29); Chloride 110 mmol/L (96-108); Creatinine Clr Calc Pharmacy 103.2; Estimated Glomerular Filt Rate > 60; Glucose Random 101 mg/dL (60-115); Potassium 4.1 mmol/L (3.3-5.1); Sodium 146 mmol/L (135-145); Total Protein 6.8 g/dL (6.5-8.0)
[2023-07-26 18:03] LABS: Influenza A PCR NEGATIVE (Negative); Influenza B PCR NEGATIVE (Negative); Resp Syncy Virus RNA Qual PCR NEGATIVE (Negative); SARS COV2 PCR INHOUSE NEGATIVE (Negative)
[2023-07-26 21:04] VITALS: BP 117/62; PULSE 54; RESP 18
[2023-07-26 21:49] VITALS: BP 114/66; PULSE 52; RESP 16; TEMP 37.4; O2SAT 95
[2023-07-26] MEDS: Meclizine HCl 25 MG TABLET 50 MG PO (22:40)
[2023-07-26 23:45] VITALS: BP 127/73; PULSE 53; RESP 18; TEMP 36.9; O2SAT 95
== END 2023-07-26 23:45 | disposition home or self-care (01) ==
PROVIDERS: Physician Assistant Medical; Emergency Provider Internal Medicine
DX: R42 Dizziness and giddiness (principal); I11.0 Hypertensive heart disease with heart failure; I50.9 Heart failure, unspecified; Z79.01 Long term (current) use of anticoagulants; Z03.818 Encounter for observation for suspected exposure to other biological agents ruled out
CPT/HCPCS: 0241U; 70450; 80053; 83735; 85025; 85610; 85730; 99284

== ENCOUNTER 2023-08-05 12:54 | Emergency (ER) | payer MEDICARE, MEDICAID, SELFPAY ==
--- NOTE | ~2023-08-05 | CT_ITS ---
EXAMINATION: CT HEAD WITHOUT CONTRAST CT ANGIOGRAM HEAD CT ANGIOGRAM NECK CLINICAL INFORMATION: Reason for Exam acute headache, dizziness, drift COMPARISON: CT head 07/26/2023 TECHNIQUE: Initial noncontrast soil specialist imaging of the head and neck was performed. Noncontrast head CT was also performed. Test bolus sequences followed by intravenous administration 85 mL of Omnipaque 350. Helical imaging was performed in the axial plane from the aortic arch to the skull vertex. Delayed postcontrast imaging of the head was also performed. The data was processed at the marketing technologist's workstation for generation of MIP sequences. Angled MIPs and volume rendered reformatted images were also generated at an offline 3D workstation. Stenoses are assessed in accordance with Lin et al. Quantification of Carotid Stenosis on CT Angiography. AJR 2006. 27(1):13-19. [address] CT examination was performed using dose optimization techniques as appropriate, variously including the following: *Automated exposure control *Adjustment of mA and/or kV according to patient size (this includes techniques or standardized protocols for targeted exams where dose is matched to indication/reason for exam; i.e. extremities or head) *Use of iterative reconstruction technique DLP: 2135 mGy-cm FINDINGS: CT HEAD: There is no evidence of acute intracranial hemorrhage. No mass-effect or ventricular shift is noted. No acute, territorial loss of james-white differentiation. The ventricles and sulci are appropriate in size and configuration for the patient's stated age. No abnormal intracranial enhancement is visualized. Increased intravascular density may be related to hemoconcentration. No depressed calvarial fracture. The mastoid air cells and the visualized paranasal sinuses are well-aerated. CTA HEAD: Suboptimal secondary to significant intracranial venous contamination. Anterior circulation: Right internal carotid artery: No hemodynamically significant stenosis. Right middle cerebral artery: No hemodynamically significant stenosis. Right anterior cerebral artery: No hemodynamically significant stenosis. Left internal carotid artery: No hemodynamically significant stenosis. Left middle cerebral artery: No hemodynamically significant stenosis. Left anterior cerebral artery: No hemodynamically significant stenosis. Posterior circulation: Right vertebral artery: No hemodynamically significant stenosis. Left vertebral artery: No hemodynamically significant stenosis. Basilar artery: No hemodynamically significant stenosis. Right posterior cerebral artery: No hemodynamically significant stenosis. Left posterior cerebral artery: No hemodynamically significant stenosis. No high flow vascular malformation or significant aneurysmal dilatation is visualized. The major dural venous sinuses are grossly within normal limits given arterial technique. CTA NECK: Aortic arch: Common origin left common carotid artery and right brachiocephalic trunk. Right common carotid artery: No hemodynamically significant stenosis. Right proximal internal carotid artery: No hemodynamically significant stenosis. Right mid/distal internal carotid artery: No hemodynamically significant stenosis. Left common carotid artery: No hemodynamically significant stenosis. Left proximal internal carotid artery: No hemodynamically significant stenosis. Left mid/distal internal carotid artery: No hemodynamically significant stenosis. Right vertebral artery: No hemodynamically significant stenosis. Left vertebral artery: No hemodynamically significant stenosis. CT NECK: Subcentimeter hypodense left thyroid nodule for which no imaging follow-up is recommended per size criteria. [place] tonsilliths. The patient is edentulous. Degenerative changes of the cervical spine. CT/CT angio head neck IMPRESSION: CT HEAD: No acute intracranial hemorrhage or territorial loss of james-white differentiation. Increased vascular density may be related to hemoconcentration. Clinical correlation is recommended. CTA NECK: No hemodynamically significant stenosis. CTA HEAD: No proximal vessel occlusion or high-grade stenosis.
[2023-08-05 14:05] VITALS: BP 124/70; PULSE 51; RESP 16; TEMP 36.1; O2SAT 97; BMI 46.3
--- NOTE | 2023-08-05 14:06 | ED_ITS ---
HPI - General Adult General Chief complaint: Headache Stated complaint: head pressure Time Seen by Provider: 08/05/23 22:27 Source: patient and old records reviewed Mode of arrival: ambulatory Limitations: no limitations History of Present Illness ED Provider: SUSHMA NUNEZ narrative: 68 yo male with PMH of CHF, obesity, HTN, anxiety, DM, cardiomegaly , PAF on eliquis here with c/o dizziness worse with standing for 2 weeks. He also had a pressure in his head that will not go away. He was seen 07/[address] head no ICH and sent home with antivert which did not help. He returns with the same symptoms. MD complaint: dizziness Onset (ago): week(s) (2) Location: head Radiation: non-radiation Severity: moderate Quality: other (aching) Pain Consistency: constant Relieving factors: none Exacerbating factors: movement Associated symptoms: other (dizziness) Treatments prior to arrival: none Related Data Home Medications ?Medication ?Instructions ?Recorded ?Confirmed apixaban 5 mg tablet (Eliquis) 5 mg PO BID 10/13/22 10/13/22 aripiprazole 10 mg tablet 10 mg PO DAILY 10/13/22 10/13/22 buspirone 30 mg tablet 30 mg PO BID 10/13/22 10/13/22 digoxin 125 mcg (0.125 mg) tablet 125 mcg PO DAILY 10/13/22 10/13/22 escitalopram oxalate 20 mg tablet 20 mg PO DAILY 10/13/22 10/13/22 furosemide 40 mg tablet 40 mg PO DAILY 10/13/22 10/13/22 gabapentin 400 mg capsule 400 mg PO DAILY 10/13/22 10/13/22 metformin 500 mg tablet 500 mg PO DAILY 10/13/22 10/13/22 metoprolol tartrate 50 mg tablet 75 mg PO BID 10/13/22 10/13/22 mirtazapine 15 mg tablet 15 mg PO BEDTIME 10/13/22 10/13/22 pantoprazole 40 mg tablet,delayed 40 mg PO DAILY 10/13/22 10/13/22 release prazosin 1 mg capsule 1 mg PO BEDTIME 10/13/22 10/13/22 sacubitril 24 mg-valsartan 26 mg 1 tab PO BID 10/13/22 10/13/22 tablet (Entresto) simvastatin 20 mg tablet 20 mg PO BEDTIME 10/13/22 10/13/22 Previous Rx's ?Medication ?Instructions ?Recorded cyclobenzaprine 5 mg tablet 5 mg PO TID 5 days #15 tabs 11/24/20 ketorolac 10 mg tablet 10 mg PO QID 5 days #20 tabs 11/24/20 amoxicillin 875 mg-potassium 1 tab PO BID #14 tabs 10/15/22 clavulanate 125 mg tablet meclizine 25 mg tablet 25 mg PO TID PRN dizziness #20 tabs 07/26/23 Allergies Allergy/AdvReac Type Severity Reaction Status Date / Time No Known Allergies Allergy Verified 08/05/23 14:07 Review of Systems 2 Review of Systems: Constitutional : No Fever, No Chills, No Fatigue ENT/Mouth : No sore throat, No Rhinorrhea Eyes: No Eye Pain, No Swelling, No Redness Cardiovascular : No Chest Pain, No SOB, No Dyspnea on Exertion Respiratory : No Cough, No Sputum Gastrointestinal : No Nausea, No Vomiting, No Diarrhea, No abdominal Pain Genitourinary : No Dysuria, No Urinary Frequency, No Hematuria, Musculoskeletal : No joint pain, No Myalgias, No Joint Swelling Skin : No Skin Lesions, No rash Neuro : No Weakness, No Numbness, pos Dizziness, positive Headache Psych : No Anxiety/Panic, No Depression Heme/Lymph: No Bruising, No Bleeding,No Lymphadenopathy Endocrine : No Polyuria, No Polydipsia All other systems reviewed and are negative [facility] Past Medical History Attestation statement: The following information was validated with the patient. 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) Alcohol intake: never Patient Tobacco Use Status: Never used Tobacco Smoked in Last 30 Days: No Use of substances other than those prescribed or required for medical reasons: No Advance Directives: No Advance Directives Information Provided: No service: No Physical Exam ED Vital Signs: Vital Signs - 24 hr 08/05/23 14:05 08/05/23 22:17 08/05/23 23:57 Temperature 96.9 F 97.5 F Pulse Rate 51 57 53 Respiratory Rate 16 20 Blood Pressure 124/70 121/62 125/59 L Pulse Oximetry 97 98 Oxygen Delivery Method Room Air Room Air 08/05/23 23:57 08/05/23 23:59 08/06/23 00:00 Temperature 98.4 F Pulse Rate 53 60 64 Respiratory Rate 18 Blood Pressure 125/59 L 137/72 153/74 H Pulse Oximetry 96 Oxygen Delivery Method Room Air 08/06/23 01:47 Temperature 98.2 F Pulse Rate 58 Respiratory Rate 16 Blood Pressure 134/64 Pulse Oximetry 97 Oxygen Delivery Method Room Air BMI result Body Mass Index 46.3 Appearance: Alert. Oriented X3. No acute distress. Eyes: Pupils equal, round and reactive to light. ENT: Pharynx normal. TMs normal bilaterally Neck: Normal inspection. Neck supple. CVS: Normal heart rate and rhythm. Pulses normal. Respiratory: No respiratory distress. Breath sounds normal. Abdomen: Soft and nontender. Skin: Skin warm and dry. Normal skin color. Normal skin turgor. Extremities: No lower extremity edema. No calf ttp Neuro: Oriented X 3. No motor deficit. No sensory deficit. slight drift of R arm when raising and eyes closed Course Course Course Narrative: This is an RME performed by Oscar Elise CNP: Additional HPI, ROS, PE not included below will be deferred to primary provider. Patient is a 68-year-old male who presents to the emergency department with his HOME HEALTH OCCUPATIONAL THERAPIST reporting headache described as pressure with associated dizziness. Onset 2 weeks ago, symptoms have been constant. Reports that he was seen here recently and prescribed a medication which helped but is no longer working. He followed up with his primary care doctor, and reports the metoprolol was decreased from 50 mg to 25 mg. evaluated 07/26/2023 in this emergency department symptoms thought to be secondary to vertigo, he was prescribed meclizine, but reportedly is no longer working. HOME HEALTH OCCUPATIONAL THERAPIST appliance that his gait has been normal, he has not been confused. Patient reports symptoms resolve lying down and are made worse with position change in ambulation. Reevaluation(s) Reevaluation #1: ortho VS negative CTA negative ambulation trial negative walks without issue or ataxia no signs of cerebellar issues Medications Administered Discontinued Medications Generic Name Dose Route Start Last Admin Trade Name Freq PRN Reason Stop Dose Admin Iohexol 85 ml 08/06/23 02:00 08/06/23 02:00 Iohexol 350 Mg/Ml 100 Ml Infus..Btl IV 08/06/23 02:01 85 ml ONCE ONE Administration Medical Decision Making Medical Decision Making [facility] Narrative: 68 yo male with PMH of CHF, obesity, HTN, anxiety, DM, cardiomegaly , PAF on eliquis here with c/o dizziness and headache x [address] scan on 07/25 that did not show bleed at this time will need basic labs CTA head and neck for mass/stroke ortho VS - possible mass/ICH, orthostatics I am obtaining EKG from [facility] to assess for any changes. Differential Diagnosis Differential Diagnoses: The differential diagnosis associated with the presentation includes mass, ICH, orthostatics Admission/Observation Consideration of admission/observation: Escalation of care including admission/observation considered normal CTA labs reassuring, neg ortho VS at this time no heart block on EKG or tele ambulation trial no issues no ataxa CTA negative at 2 weeks he can be DC home Lab Data [facility] Lab Attestation statement: I reviewed the patient's lab results. 08/05/23 14:29 08/05/23 14:29 Labs: Lab Results 08/05/23 08/05/23 Range/Units 14:29 23:28 WBC 9.9 (4.8-10.8) X10*3/uL RBC 5.12 (4.60-5.80) X10*6/uL Hgb 15.6 (14.0-18.0) g/dl Hct 46.8 (42.0-52.0) % MCV 91.4 (80.0-98.0) fL MCH 30.5 (27.0-33.0) pg MCHC 33.3 (31.0-36.0) g/dl RDW 13.4 (11.0-16.0) % Plt Count 263 (160-400) X10*3/uL MPV 9.9 (9.4-12.4) fL Immature Gran % (Auto) 0.5 H (0.0-0.4) % Neut % (Auto) 74.9 H (45-73) % Lymph % (Auto) 15.0 L (20-40) % [place] % (Auto) 7.8 (2-11) % Eos % (Auto) 1.2 (0-4) % Baso % (Auto) 0.6 (0-2) % Lymph # (Auto) 1.5 (1.2-4.9) X10*3/uL [place] # (Auto) 0.8 (0.1-1.2) X10*3/uL Eos # (Auto) 0.1 (0.0-0.4) X10*3/uL Baso # (Auto) 0.1 (0.0-0.2) X10*3/uL Abs Immat Gran (auto) 0.05 H (0.00-0.03) X10*3/uL Absolute Neuts (auto) 7.4 (2.0-8.3) x10*3/uL Absolute Nucleated RBC 0.000 (0.0-0.012) X10*3/uL Nucleated RBC % (auto) 0.0 (0.0-0.2) /100WBC Sodium 144 (135-145) mmol/L Potassium 3.8 (3.3-5.1) mmol/L Chloride 109 H (96-108) mmol/L Carbon Dioxide 28 (22-29) mmol/L Anion Gap 11 L (12-20) BUN 16 (9-16) mg/dL Creatinine 0.90 (0.5-1.4) mg/dL Estim Creat Clear Calc 105.1 Estimated GFR > 60 Random Glucose 109 (60-115) mg/dL Calcium 10.0 D (8.4-10.2) mg/dL Magnesium 2.0 (1.6-2.6) mg/dL Total Bilirubin 0.6 (0.0-1.0) mg/dL AST 23 (5-37) U/L ALT 16 (0-40) U/L Alkaline Phosphatase 71 (39-117) U/L Troponin I High Sens 17.7 21.3 (<3.5-35.0) ng/L Total Protein 6.8 (6.5-8.0) g/dL Albumin 3.8 (3.5-5.0) g/dL Digoxin 0.7 L (0.8-2.0) ng/mL Influenza Type A (PCR) NEGATIVE (Negative) Influenza Type B (PCR) NEGATIVE (Negative) RSV RNA Qual (PCR) NEGATIVE (Negative) SARS-CoV-2 RNA (RT-PCR) NEGATIVE (Negative) Independent Interpretation I performed an independent interpretation of an: EKG and CT Scan (normal ) Interpretation: Rate: 50 Rhythm: sinus bradycardia [place]: left Normal P waves. Normal ROMEL. Normal QRS complex. ST T wave : T wave inversions and sloping V5-V6, I and II, no RADHA qTC: 401 prior studies: [facility] The study has been interpreted contemporaneously by me. EKG #2 Rate: 57 Rhythm: sinus bradycardia [place]: left Normal P waves. Normal ROMEL. Normal QRS complex. ST T wave : no RADHA, nonspecific lateral ST T wave changes qTC: 418 prior studies: no change from prior The study has been interpreted contemporaneously by me. . Radiology Impression Discussion of test interpretation with radiology: I have reviewed the radiologist's reading. External Record Review External record reviewed: Inpatient record and Outpatient record Discharge Plan Discharge Clinical Impression: Dizziness Patient Disposition: Home, Self-Care Instructions: Dizziness (ED) Additional Instructions: labs at baseline, repeat EKG no change, heart tests at baseline no change blood pressure not dropping with standing CT scan with contrast no mass or new stroke seen please follow up with your doctor for further workup Prescriptions: No Action cyclobenzaprine 5 mg tablet 5 mg PO TID 5 Days Qty: 15 0RF ketorolac 10 mg tablet 10 mg PO QID 5 Days Qty: 20 0RF meclizine 25 mg tablet 25 mg PO TID PRN (Reason: dizziness) Qty: 20 0RF furosemide 40 mg tablet 40 mg PO DAILY metformin 500 mg tablet 500 mg PO DAILY prazosin 1 mg capsule 1 mg PO BEDTIME gabapentin 400 mg capsule 400 mg PO DAILY pantoprazole 40 mg tablet,delayed release (DR/EC) 40 mg PO DAILY simvastatin 20 mg tablet 20 mg PO BEDTIME buspirone 30 mg tablet 30 mg PO BID metoprolol tartrate 50 mg tablet 75 mg PO BID digoxin 125 mcg (0.125 mg) tablet 125 mcg PO DAILY mirtazapine 15 mg tablet 15 mg PO BEDTIME escitalopram oxalate 20 mg tablet 20 mg PO DAILY aripiprazole 10 mg tablet 10 mg PO DAILY Eliquis 5 mg tablet 5 mg PO BID Entresto 24-26 mg tablet 1 tab PO BID amoxicillin-pot clavulanate 875-125 mg tablet 1 tab PO BID Qty: 14 0RF Print Language: Kinyarwanda
--- NOTE | 2023-08-05 14:10 | ECG_ITS ---
Test Reason : DIZZINESS Blood Pressure : / mmHG Vent. Rate : 050 BPM Atrial Rate : 050 BPM P-R Int : 150 ms QRS Dur : 108 ms QT Int : 440 ms P-R-T Axes : 011 -15 187 degrees QTc Int : 401 ms Sinus bradycardia Incomplete left bundle branch block Left ventricular hypertrophy with repolarization abnormality ( R in aVL , Terence product ) Abnormal ECG When compared with ECG of 14-JAN-2015 16:17, Incomplete left bundle branch block is now Present T wave inversion now evident in Lateral leads Referred By: Lorraine Elise Electronically Signed By:VIOLETA GOMES MD
[2023-08-05 14:35] LABS: MANUAL DIFF FLAG NO
[2023-08-05 14:36] LABS: Basophils Absolute Auto 0.1 X10*3/uL (0.0-0.2); Basophils Percent Auto 0.6 % (0-2); Eosinophils Absolute Auto 0.1 X10*3/uL (0.0-0.4); Eosinophils Percent Auto 1.2 % (0-4); Hematocrit 46.8 % (42.0-52.0); Hemoglobin 15.6 g/dl (14.0-18.0); Imm Gran Abs Auto 0.05 X10*3/uL (0.00-0.03); Imm Gran Pct Auto 0.5 % (0.0-0.4); Lymphocytes Absolute Auto 1.5 X10*3/uL (1.2-4.9); Mean Corpuscular HGB Conc 33.3 g/dl (31.0-36.0); Mean Corpuscular Hemoglobin 30.5 pg (27.0-33.0); Mean Corpuscular Volume 91.4 fL (80.0-98.0); Mean Platelet Volume 9.9 fL (9.4-12.4); Monocytes Absolute Auto 0.8 X10*3/uL (0.1-1.2); Monocytes Percent Auto 7.8 % (2-11); Neutrophils Absolute Auto 7.4 x10*3/uL (2.0-8.3); Neutrophils Percent Auto 74.9 % (45-73); Platelet Count 263 X10*3/uL (160-400); Red Blood Count 5.12 X10*6/uL (4.60-5.80); Red Cell Distribution Width 13.4 % (11.0-16.0); White Blood Count 9.9 X10*3/uL (4.8-10.8)
[2023-08-05 14:52] LABS: Alanine Aminotransferase 16 U/L (0-40); Albumin Level 3.8 g/dL (3.5-5.0); Alkaline Phosphatase 71 U/L (39-117); Anion Gap 11 (12-20); Aspartate Amino Transferase 23 U/L (5-37); Bilirubin Total 0.6 mg/dL (0.0-1.0); Blood Urea Nitrogen 16 mg/dL (9-16); Carbon Dioxide 28 mmol/L (22-29); Chloride 109 mmol/L (96-108); Creatinine Clr Calc Pharmacy 105.1; Estimated Glomerular Filt Rate > 60; Glucose Random 109 mg/dL (60-115); Potassium 3.8 mmol/L (3.3-5.1); Sodium 144 mmol/L (135-145); Total Protein 6.8 g/dL (6.5-8.0)
[2023-08-05 14:59] LABS: Troponin-I High Sensitivity 17.7 ng/L (<3.5-35.0)
[2023-08-05 15:15] LABS: Influenza A PCR NEGATIVE (Negative); Influenza B PCR NEGATIVE (Negative); Resp Syncy Virus RNA Qual PCR NEGATIVE (Negative); SARS COV2 PCR INHOUSE NEGATIVE (Negative)
[2023-08-05 22:17] VITALS: BP 121/62; PULSE 57; RESP 20; TEMP 36.4; O2SAT 98
--- NOTE | 2023-08-05 23:17 | PC.NURSE ---
Patient presenting with head pressure and dizziness. Patient denies any pain at all in his head stating it is all pressure and pointing to the top of his head. Patient is generally well appearing at this time, A+O, follows commands.
[2023-08-05 23:46] LABS: Digoxin 0.7 ng/mL (0.8-2.0)
[2023-08-05 23:53] LABS: Troponin-I High Sensitivity 21.3 ng/L (<3.5-35.0)
[2023-08-05 23:57] VITALS: BP 125/59; PULSE 53; RESP 18; TEMP 36.9; O2SAT 96
[2023-08-05 23:59] VITALS: BP 137/72; PULSE 60
[2023-08-06] VITALS: BP 153/74; PULSE 64
[2023-08-06 01:47] VITALS: BP 134/64; PULSE 58; RESP 16; TEMP 36.8; O2SAT 97
[2023-08-06] MEDS: iohexoL 350 MG/ML 100 ML INFUS..BTL 85 ML IV (02:00)
--- NOTE | 2023-08-06 03:19 | ECG_ITS ---
Test Reason : DIZZINESS Blood Pressure : / mmHG Vent. Rate : 057 BPM Atrial Rate : 057 BPM P-R Int : 150 ms QRS Dur : 110 ms QT Int : 430 ms P-R-T Axes : 046 -09 143 degrees QTc Int : 418 ms Sinus bradycardia Incomplete left bundle branch block Left ventricular hypertrophy with repolarization abnormality ( R in aVL , Terence product ) Abnormal ECG When compared with ECG of 05-AUG-2023 14:16, T wave inversion less evident in Inferior leads Referred By: Dimple Padilla Electronically Signed By:VIOLETA GOMES MD
[2023-08-06 03:50] VITALS: BP 126/72; PULSE 61; RESP 22; TEMP 36.8; O2SAT 95
[2023-08-06 04:23] VITALS: BP 126/72; PULSE 61; RESP 22; TEMP 36.8; O2SAT 95
== END 2023-08-06 04:28 | disposition home or self-care (01) ==
PROVIDERS: Nurse Practitioner Family; Emergency Provider Emergency Medicine
DX: R51.9 Headache, unspecified (principal); R42 Dizziness and giddiness; R00.1 Bradycardia, unspecified; M54.2 Cervicalgia; Z79.899 Other long term (current) drug therapy; Z03.818 Encounter for observation for suspected exposure to other biological agents ruled out
CPT/HCPCS: 0241U; 36415; 70496; 70498; 80053; 80162; 83735; 84484; 85025; 93005; 99284; 99285; Q9967

== ENCOUNTER → 2023-08-05 14:10 | Outpatient (BNV) | payer MEDICARE, MEDICAID, SELFPAY | PROVIDERS: Emergency Provider Emergency Medicine; Visit Provider Internal Medicine Cardiovascular Disease | DX: R94.31 Abnormal electrocardiogram [ECG] [EKG] (principal) | CPT/HCPCS: 93010 ==

== ENCOUNTER → 2023-08-06 03:19 | Outpatient (BNV) | payer MEDICARE, MEDICAID, SELFPAY | PROVIDERS: Emergency Provider Emergency Medicine; Visit Provider Internal Medicine Cardiovascular Disease | DX: R94.31 Abnormal electrocardiogram [ECG] [EKG] (principal) | CPT/HCPCS: 93010 ==

== ENCOUNTER 2024-12-30 19:07 | Emergency (ER) | payer OTHER, SELFPAY ==
--- NOTE | 2024-12-30 | ECG_ITS ---
Test Reason : SOB Blood Pressure : */* mmHG Vent. Rate : 80 BPM Atrial Rate : 80 BPM P-R Int : 148 ms QRS Dur : 108 ms QT Int : 390 ms P-R-T Axes : 24 -27 122 degrees QTcB Int : 449 ms Normal sinus rhythm Incomplete left bundle branch block Left ventricular hypertrophy with repolarization abnormality ( R in aVL , Terence product , Romhilt-Arthur ) Abnormal ECG When compared with ECG of 06-Aug-2023 03:23, T wave inversion less evident in Lateral leads Referred By: Generic ED Physician Electronically Signed By: Kendrick Romero
--- NOTE | ~2024-12-30 | XR_ITS ---
CLINICAL HISTORY: sob 2 view chest x-ray Comparison: None provided Findings: Lungs are clear without acute infiltrates. No pneumothorax. Heart size enlarged. No acute bony abnormalities. Impression: No acute processes This document has been electronically signed by: Elieser Nogueira MD on 12/30/2024 20:32:17
[2024-12-30 19:15] VITALS: BP 128/83; BP 144/86; PULSE 78; PULSE 84; RESP 20; TEMP 36.8; O2SAT 97; BMI 48.2
[2024-12-30 19:32] VITALS: BP 144/86; PULSE 84; RESP 20; TEMP 36.8; O2SAT 97
[2024-12-30 19:34] VITALS: PULSE 81
--- OUTSIDE RECORDS SUMMARY | 2024-12-30 20:38 | XMS_ITS | Clinical Summary ---
Author Organization [facility] Address [address] [place] [address] Phone Care Team Providers Care Gaming Worker Name Role Phone PasserSocorro Primary Care Provider [phone] Allergies No known active allergies Medications busPIRone (BUSPAR) 15 mg tablet Take 15 mg by mouth as needed. Active escitalopram (LEXAPRO) 20 mg tablet Take 20 mg by mouth daily. Active furosemide (LASIX) 20 mg tablet Take 1 tablet by mouth daily. 02/09/2021 Active gabapentin (NEURONTIN) 100 mg capsule Take 100 mg by mouth daily. Active metoprolol tartrate (LOPRESSOR) 50 mg tablet TAKE 1 TABLET BY MOUTH THREE TIMES A DAY 09/07/2023 Active simvastatin (ZOCOR) 20 mg tablet Take 1 Tablet by mouth at bedtime. Active magnesium oxide (MAG-OX) 400 mg (241.3 elemental magnesium) tablet TAKE 1 TABLET BY MOUTH THREE TIMES A DAY 270 tablet 1 09/21/2024 Active Entresto 24-26 mg per tablet TAKE 1 TABLET BY MOUTH TWICE A DAY 60 tablet 6 09/25/2024 Active apixaban (Eliquis) 5 mg tablet Take 1 tablet (5 mg total) by mouth 2 (two) times a day. 180 tablet 3 10/02/2024 Active digoxin (LANOXIN) 125 mcg (0.125 mg) tablet TAKE 1 TABLET BY MOUTH 1 TIME EACH DAY. 90 tablet 3 11/01/2024 Active Active Problems Problem Noted Date Diagnosed Date CHF with cardiomyopathy (CMS/HCC V24, CMS/HCC V2 8) 03/22/2023 Assessment & Plan (04/09/2024 6:20 PM EST): Does not have volume overload by physical exam. Will continue low-dose furosemide. Will need to update labs. Will check BNP level. Dilated cardiomyopathy (CMS/HCC V24, CMS/HCC V28 ) 03/22/2023 Overview (03/29/2024): Last Assessment & Plan: Left ventricular systolic function was back normal by RICHELLE. Would reassess LV function by TTE. Nonrheumatic aortic valve insufficiency 03/22/19 24 Persistent atrial fibrillation (CMS/HCC V24, CMS /HCC V28) 08/17/2021 Overview (03/29/2024): Last Assessment & Plan: On exam today he appears to be in atrial fibrillation. I spoke to him about having an Holter monitor and is agreeable to this. This time he is anticoagulated with Pradaxa and he is on the correct dose given his renal function. Assessment & Plan (04/09/2024 6:20 PM EST): Orders: ECG 12 lead Aortic regurgitation 05/26/2020 Overview (03/29/2024): Last Assessment & Plan: Aortic regurgitation reported to be moderate Cardiomyopathy (CMS/HCC V24, CMS/HCC V28) 2020 Overview (03/29/2024): Last Assessment & Plan: This patient does have a dilated cardiomyopathy. His last echocardiogram In August demonstrated that the end-diastolic dimension was 7.1 cm. The LVEF was 45 to 50%. There was mild concentric left ventricular hypertrophy with a wall thickness of 1.1 cm. There was mild to moderate aortic regurgitation. Exact etiology for his left ventricular dysfunction is not clear. I do think we need to exclude ischemic heart disease I spoke about undergoing a cardiac catheterization. I discussed the indication of the procedure and the procedure itself. I did discuss some, but not all possible findings including fact there may be no significant coronary disease, coronary disease requiring medical therapy angioplasty or bypass surgery. I did discuss some, but not all possible risks including , OK, CVA, damage to artery wrist arrhythmia infection allergy to the dye. I have given him material to read about this. I told him if you would like to proceed to call me I would schedule this. Do it at [facility]. Also not clear if the aortic regurgitation he has is more than was seen on the TTE. I discussed this with him and I did recommend a RICHELLE. I have done this before I did explain the reasons for this again I told him if he would proceed like to proceed I will schedule this. I also did give him a slip for blood work as I like to start him on Entresto. I discussed the indication limbers medication as well as some, possible risks. Assessment & Plan (04/09/2024 6:20 PM EST): Repeat echocardiogram showed low normal left ventricular systolic function but left ventricular size remained moderately increased. However, he is also morbidly obese and left ventricular enlargement could be partly attributed to his morbid obesity. Will continue to monitor. Will continue current dose Entresto. Hyperlipidemia 05/26/2020 Overview (03/29/2024): Last Assessment & Plan: Last lipid panel from September 2019. Total cholesterol 142, HDL 63, LDL 67. Continue statin therapy. Hypertension 05/26/2020 Overview (03/29/2024): Last Assessment & Plan: 110/62, well-controlled. Continue regimen. Mild aortic stenosis 05/26/2020 Overview (03/29/2024): Last Assessment & Plan: Mean and peak gradients of 11 and 21 mmHg. We will continue to monitor. Echo tomorrow. Paroxysmal atrial fibrillation (CMS/HCC V24, CMS /HCC V28) 05/26/2020 Overview (03/29/2024): Last Assessment & Plan: Status post RICHELLE guided cardioversion. On Eliquis, reduced dose digoxin and low- dose metoprolol Assessment & Plan (04/09/2024 6:20 PM EST): Post cardioversion. He has remained in the sinus rhythm. Will continue anticoagulation, low-dose digoxin and beta-[place]ol[place]. Will check dig level. Shortness of breath 05/26/2020 Overview (03/29/2024): Last Assessment & Plan: Symptoms are unchanged from his prior visit. He has a stress test with a positive 3 times daily ratio. We have discussed a diagnostic left heart cardiac catheterization despite his history of a nonischemic myopathy. The rationale for the procedure was described in detail. The procedure itself was described in full detail. At this time he would like to continue to hold off. He understands if he changes his mind at any minute he can give us a call. He was instructed if he has any worsening of his symptoms or any chest discomfort lasting 15 minutes or longer to seek urgent medical attention. Encounters Date Type Department Care Team Description 11/02/2024 Telephone [facility] [address] [place] [address] Hearclio Szymanski MD from Last 3 Months Surgical History Surgery Date Site/Laterality Comments OTHER SURGICAL HISTORY 04/30/2016 PROCEDURE: HISTORY OTHER; COMMENT: UPPER GASTROINTESTINAL ENDOSCOPY INCLUDING ESOPHAGUS, STOMACH AND EITHER THE DUODENUM AND /OR JEJUNUM APPROPRIATE ,DIAGNOSTIC WITH OR WITHOUT COLLECTION OF SPECIMAN BY BRUSHING OR WASHING ( SEPARATE PROCEDURE) OTHER SURGICAL HISTORY PROCEDURE: HISTORY OTHER; COMMENT: CHOLECYSTECTOMY Medical History Medical History Date Comments Anxiety with depression DX:Anxie ty with depression Bilateral chronic knee pain DX:B ilateral chronic knee pain Constipation DX:Constipation Diabetes ([facility] V24, [facility] V28) DX:Diabetes ([facility]) GERD (gastroesophageal reflux disease) DX:GERD (gastroesophageal reflux disease) Glucose intolerance DX:Glucose i ntolerance Obesity, Class III, BMI 40-4 9.9 (morbid obesity) ([facility] V28) DX:Obesity, Class III, BMI 4 0-49.9 (morbid obesity) ([facility]) Social History Tobacco Use Types Packs/Day Years Used Date Smoking Tobacco: Former Smokeless Tobacco: Never Alcohol Use Standard Drinks/Week Comments No 0 (1 standard drink = 0.6 oz pur e alcohol) Sex and Gender Information Value Date Recorded Sex Assigned at Not on file Legal Sex Male 8:27 AM EST Gender Identity Not on file Sexual Orientation Not on file Obstetrics History Last Filed Vital Signs Vital Sign Reading Time Taken Comments Blood Pressure 132/80 04/09/2024 2:29 PM EST Pulse 70 04/09/2024 2:29 PM EST Temperature - - Respiratory Rate - - Oxygen Saturation 99% 04/09/2024 2:29 PM EST Inhaled Oxygen Concentration - - Weight 138 kg (305 lb) 04/09/2024 2:29 PM EST Height 170.2 cm (5' 7 ) 04/09/2024 2:29 PM EST Body Mass Index 47.77 04/09/2024 2:29 PM EST Plan of Treatment Health Maintenance Due Date Last Done Comments Colorectal Cancer Screening: Colonoscopy 1955 Diabetes: Annual Foot Exam 12/31/1965 Diabetes: Annual Retina Eye Exam 12/31/1965 RSV Immunization Adult Patients (1 - Risk 50-74 years 1-dose series) 12/31/2005 Pneumococcal Vaccine: 50+ Years (2 of 2 - PCV) 09/28/2007 09/27/2006 Zoster Vaccines (2 of 3) 07/01/2016 05/06/2016 Abdominal Aortic Aneurysm (AAA) Screen 02/06/2022 Cholesterol Screening (Lipid Panel) 02/06/2022 Falls Risk Assessment 02/06/2022 Hepatitis C Screening 02/06/2022 Medicare Annual Wellness Visit 02/06/2022 Social Influencers of Health Screening 02/06/2022 Diabetes: Annual Urine Albumin-Creatinine Ratio (uACR) 01/02/2024 Diabetes: Blood Sugar Control Test (HGBA1C) 01/02/2024 Depression Screening 02/29/2024 Diabetes: Annual GFR (Glomerular Filtration Rate) 04/14/2024 04/14/2023 Hypertension/CHF/CAD Annual BMP Blood Test 04/14/2024 04/14/2023 COVID-19 Vaccine ( season) 2024 01/17/2023, 04/17/2021, 05/20/2020, Additional history exists Influenza Vaccine (#1) 2024 , 04/17/2021, 11/26/2016, Additional history exists DTaP,Tdap,and Td Vaccines (3 - Td or Tdap) 07/14/2025 07/15/2015, 09/27/2006 HIB Vaccines Aged Out No longer eligi ble based on patient's age to complete this topic HPV Vaccines Aged Out No longer eligi ble based on patient's age to complete this topic Hepatitis A Vaccines Aged Out No long er eligible based on patient's age to complete this topic Hepatitis B Vaccines Aged Out No long er eligible based on patient's age to complete this topic IPV Vaccines Aged Out No longer eligi ble based on patient's age to complete this topic MMR Vaccines Aged Out No longer eligi ble based on patient's age to complete this topic Meningococcal ACWY Vaccine Aged Out N o longer eligible based on patient's age to complete this topic Meningococcal B Vaccine Aged Out No l onger eligible based on patient's age to complete this topic RSV Immunization Patients Under 20 months Aged Out No longer eligible based on patient's age to complete this topic Varicella Vaccines Aged Out No longer eligible based on patient's age to complete this topic Procedures Procedure Name Priority Date/Time Associated Diagnosis Comments ANNUAL BMP BLOOD TEST Routine 04/14/2023 from Last 3 Months or Most Recently Relevant to Health Maintenance Results * Annual BMP Blood Test (04/14/2023) Annual BMP Blood Test abstracted Historical Provider MD HEALTH MAINTENANCE Final Result from Last 3 Months or Most Recently Relevant to Health Maintenance Insurance [facility] Member Subscriber Plan / Payer (Ef fective 2023-Present) Name:Chris Parham Relation to Subscriber:Self Name:Chris Parham Payer ID:[id number] Group ID:[id number] Type:Not on file Address: [place] [address] [address] [id number] Care Teams Gaming Worker Relationship Specialty Start Date End Date Socorro Meza PA [address] [place] [id number] PCP - General Physician Last Inserter 04/09/24
--- OUTSIDE RECORDS SUMMARY | 2024-12-30 20:39 | XMS_ITS ---
Author Name [facility] Organization Unknown Care Team Organization Name Specialty Phone Email Start Date End Da te [facility] Termed, PROVIDER Primary Care 08/06/202209/28
--- OUTSIDE RECORDS SUMMARY | 2024-12-30 20:39 | XMS_ITS | Data Portability ---
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 I have reviewed and agree with the Assessment and Plan as documented by the Traveling Buyer. Patient given the opportunity to ask questions. Our service contacted for an assessment of: Question of tachypnea As per above, patient's RADIOTELEPHONE OPERATOR thought the patient had tachypnea and called for visit. Upon arrival the supervisor dehydrogenation, the patient had no tachypnea and otherwise felt well. The patient had no complaints. Per supervisor dehydrogenation on the scene, Vital signs are stable and the patient is afebrile. Impression: Patient with obesity and states that it may seem that he has tachypnea but he feels fine Plan: continue with current plan. Red flags discussed as to when to seek a higher level of care. Allergies: Reviewed PCP f/u: We discussed the diagnostic uncertainty of home visits and the risk associated with this. In this case, the patient and I felt this to be an acceptable and reasonable amount of risk given the benefit of avoiding an ED visit. We discussed the need to seek care urgently/emergentl y in the setting of any new or worsening serious symptoms, particularly fever chills lightheadedness altered mental status [email or web address] Not available 06/11/2024 17:55:59 Plan of Treatment Reminders Order Date Submit Date Provider Last Modified By Organization Details Last Modified Time Details Appointments None record ed. Lab None record ed. Referral None record ed. Procedures None record ed. Surgeries None record ed. Imaging None record ed. Medication Orders None record ed. Patient TargetsNo targets recorded. Patient InstructionsNo instructions recorded. Reason for Referral None Reported. Medical Equipment None Reported. Allergies No known drug allergies Medications Name Sig Start Date Stop Date Status Note LastModified by Organization Details LastModified Time furosemide 40 mg tablet TAKE 1 TABLET BY MOUTH EVERY DAY active Not Available Not Available No t Available prazosin 1 mg capsule TAKE 1 CAPSULE BY MOUTH EVERYDAY AT BEDTIME active Not Available Not Available N ot Available meclizine 12.5 mg tablet TAKE 1 TABLET BY MOUTH THREE TIMES A DAY NEEDED DIZZINESS active Not Available Not Available No t Available meclizine 25 mg tablet TAKE 1 TABLET BY MOUTH THREE TIMES A DAY NEEDED FOR DIZZINESS active Not Available Not Available No t Available buspirone 30 mg tablet TAKE 1 TABLET BY MOUTH TWICE A DAY active Not Available Not Available No t Available digoxin 125 mcg (0.125 mg) tablet TAKE 1 TABLET BY MOUTH EVERY DAY active Not Available Not Available No t Available mirtazapine 15 mg tablet TAKE 1 TABLET BY MOUTH EVERYDAY AT BEDTIME active Not Available Not Available N ot Available metoprolol succinate ER 25 mg tablet,extend ed release 24 hr TAKE 1 TABLET BY MOUTH EVERY DAY FOR BLOOD PRESSURE AND HEART active Not Available Not Available No t Available lorazepam 1 mg tablet TAKE 1 TABLET BY MOUTH 1 HOUR BEFORE MRI, MAY REPEAT IN 30 MIN IF NEEDED. LABEL IN [place] active Not Available Not Available No t Available amoxicillin 875 mg-potassium clavulanate 125 mg tablet TAKE 1 TABLET BY MOUTH EVERY 12 HOURS FOR 7 DAYS active Not Available Not Available No t Available escitalopram 20 mg tablet TAKE 1 TABLET BY MOUTH EVERY DAY IN THE MORNING active Not Available Not Available No t Available diclofenac 1 % topical gel APPLY TOPICALLY 4 TIMES A DAY TO BOTH KNEES NEEDED FOR PAIN. MAX 16 GRAMS /DAY active Not Available Not Available N ot Available Eliquis 5 mg tablet TAKE 1 TABLET BY MOUTH TWICE A DAY active Not Available Not Available No t Available Entresto 24 mg-26 mg tablet TAKE 1 TABLET BY MOUTH TWICE A DAY active Not Available Not Available No t Available Vitals Date Recorded Body temperature Oxygen saturation Oxygen saturation in Arterial blood by Pulse oximetry Body weight Body height Heart rate Respiratory rate Systolic And Diastolic Provider Name and Address Organization Details Last Updated DateTime 5 98.6 [degF] 97 % 97 % 993666. 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 Functional Status None recorded. Mental Status None recorded. Family History Nothing Reported. Medical History No medical history recorded. Past Encounters Encounter ID Performer Location Encounter Start Date Encounter Closed Date Diagnosis/Indication Diagnosis SNOMED-CT Code Diagnosis ICD10 Code Diagnosis IMO Codes Diagnosis Note [id number] Mayte Pro MD [facility] [address] [place] [address] [id number] 06/11/2024 14:43:42 06/11/2024 18:10:01 Physical examination 6829368 Z00.00 [id number] Health Concerns Section Related Observation LastModified by Organization Detai ls LastModified Time None Recorded Concern Status LastModified by Organization Details LastModified Time None Recorded Advance Directives Directive None Recorded Payers Insurance Date Sequence Insurance Name Policy Number Policy Armando Covered Member ID Armando Member ID Guarantor Name 06/11/2024 1 [facility] - DOS ON OR AFTER 2022 - DUAL ELIGIBLE - ASSISTED OPTIONS AND ONE CARE (MEDICARE REPLACEMENT/ADV ANTAGE - HMO) Chris Parham [id number] Chris Parham Notes Date Note Type Note Provider Name and Address Organization Details Recorded Time 06/11/2024 text/html [facility] Nurse Triage Notes (Wilberto Owen - RN): Reason For Request: Pt's RADIOTELEPHONE OPERATOR reporting fatigue (member does not have asthma but RADIOTELEPHONE OPERATOR describes the fatigue as such)>SOB, belabored breathing>symptoms had started over the weekend and persist PMH: Hypertension, also notes his nurse has mentioned cardiac issuesAllergies to medication: none Patient Reports: Unable to speak in full sentences without distress Denies: Increased work of breathing/labored with or without fever Discoloration of skin -cyanosis Needs to sleep sitting up, can t catch breath Shortness of breath in setting of confusion Chief Complaints: Breathing Problems PMH: Hypertension PMH Reviewed at 06/11/2024 - : Allergies Reviewed at 06/11/2024 - :11 Comments: Assembl[employer] verified the patient's name//address and phone number. Pt's RADIOTELEPHONE OPERATOR calling reporting patient is breathing faster then normal. RADIOTELEPHONE OPERATOR reports pt does not have asthma that she is aware of. RADIOTELEPHONE OPERATOR reports pt's symptoms started over the weekend. RADIOTELEPHONE OPERATOR reports pt is not able to talk as much as normal because of the SOB. RADIOTELEPHONE OPERATOR reports pt declines going to the ER. Education provided on the response time and the patient was advised to monitor reported s/s and seek emergency treatment if needed -Citlali Owen RN ..................... ..................... ..................... ..................... ..................... ..................... ............... Traveling Buyer Note From Amarjit Sexton: Dispatched to the call address for the male with shortness of breath. RADIOTELEPHONE OPERATOR advises she feels the Pt is breathing fast. Pt states he feels OK, sometimes he feels a little short of breath but that it is not new. Pt denies chest pain, diff breathing/sob, n/v/d, cough, headache, fevers or any other symptoms at this time. Pt states he believes his occasional SoB is due to his obesity. RADIOTELEPHONE OPERATOR advises he does not move around very much at all and mostly just sits in the chair all day. Pt states he just wants to have his vitals checked and lungs listend to. Pt was found sitting on living room chair, CAOx4, airway open and patent, breathing non labored, able to speak in full sentences, -JVD, -HEENT, skin PWD with good turgor, mucous membranes pink and moist, -JVD, -HEENT, pupils PERRL, lungs CTA, abd soft non tender/distended, +CMSx4, -edema/swelling, Afebrile. Foot swelling Pt was assessed with full set of vitals. C consulted. . Red flags discussed. ALL times are approx. ..................... ..................... ..................... ..................... ..................... ..................... ............... [facility] [place] Consulted: Mayte Pro ..................... ..................... ..................... ..................... ..................... ..................... ............... Disposition: Fulfilled Mayte Pro MD [address] [facility],[address], [place], [address], [employer] - [employer]NA CLARK 06/11/2024 17:56:06
[2024-12-30 20:58] LABS: COVID-19 Test Negative (Negative); IDNOW Serial# 55D5AD1C; IDNOW Serial# 58CA691E; Influenza B2 Negative (Negative)
--- NOTE | 2024-12-30 23:33 | ED.GENADULT ---
HPI - General Adult General Chief complaint: Upper Respiratory Symptoms Stated complaint: sob Time Seen by Provider: 12/30/24 22:11 Source: patient Limitations: language barrier and other (Poor historian) History of Present Illness ED Provider: Celine Barton PA-C HPI narrative: 69-year-old male with a history of asthma, morbid obesity, cardiomegaly with heart failure of unclear etiology, anxiety and depression who presents with cough cold symptoms of unclear duration. Patient states he has had a dry repetitive cough with the wheezing at times. Associated generalized malaise and myalgia. Denies the use of tobacco, no chest pain or known fever. Related Data Home Medications ?Medication ?Instructions ?Recorded ?Confirmed apixaban 5 mg tablet (Eliquis) 5 mg PO BID 10/13/22 01/01/25 digoxin 125 mcg (0.125 mg) tablet 125 mcg PO DAILY 10/13/22 01/01/25 escitalopram oxalate 20 mg tablet 20 mg PO DAILY 10/13/22 01/01/25 furosemide 40 mg tablet 40 mg PO DAILY 10/13/22 01/01/25 mirtazapine 15 mg tablet 15 mg PO BEDTIME 10/13/22 01/01/25 prazosin 1 mg capsule 1 mg PO BEDTIME 10/13/22 01/01/25 sacubitril 24 mg-valsartan 26 mg 1 tab PO BID 10/13/22 01/01/25 tablet (Entresto) simvastatin 20 mg tablet 20 mg PO BEDTIME 10/13/22 01/01/25 buspirone 10 mg tablet 20 mg PO TID 01/01/25 01/01/25 gabapentin 600 mg tablet 600 mg PO DAILY 01/01/25 01/01/25 metoprolol succinate 25 mg 25 mg PO DAILY 01/01/25 01/01/25 tablet,extended release 24 hr Previous Rx's ?Medication ?Instructions ?Recorded meclizine 25 mg tablet 25 mg PO TID PRN dizziness #20 tabs 07/26/23 albuterol sulfate 90 mcg/actuation 2 puff inhalation Q4-6H PRN 12/30/24 aerosol inhaler (Ventolin HFA) bronchospasm #8.5 grams Allergies Allergy/AdvReac Type Severity Reaction Status Date / Time No Known Allergies Allergy Verified 12/31/24 21:57 Review of Systems Review of Systems: Yes all other systems are reviewed and are negative Constitutional: Constitutional: Denies fatigue and Denies fever(s) Cardiovascular: Cardiovascular: Denies chest pain and Denies dyspnea Respiratory: Respiratory: Reports cough, Denies dyspnea and Reports wheezing Endocrine: Endocrine: Denies fatigue Allergic/Immunologic: Allergic/Immunologic: Reports wheezing [facility] Past Medical History Attestation statement: The following information was validated with the patient. Medical History CHF (congestive heart failure) Cardiomegaly Hypertension Panic anxiety syndrome Anxiety Depression Social History Social History Household Members: None Housing: Apartment Do you presently have visiting nurse or other home services: Yes (WINDOW/DISTRIBUTION CLERK and VNA) Alcohol intake: current Patient Tobacco Use Status: Never used Tobacco Smoked in Last 30 Days: No Use of substances other than those prescribed or required for medical reasons: No Advance Directives: No Advance Directives Information Provided: Yes service: No Physical Exam ED Vital Signs: Vital Signs - 24 hr 12/30/24 19:15 12/30/24 19:32 12/30/24 19:32 Temperature 98.3 F 98.3 F Pulse Rate 84 84 Respiratory Rate 20 20 Blood Pressure 144/86 H 144/86 H Pulse Oximetry 97 97 97 Oxygen Delivery Method Room Air Room Air Room Air BMI result Body Mass Index 48.2 Const Other: Alert Orientation/consciousness: patient oriented x3 Resp Other: Nonlabored respirations, no wheezing on exam, active bronchospasm cough Cardio Other: Normal peripheral perfusion Skin Other: Warm dry no rash Neuro General: patient oriented x3, gait normal, no focal motor deficits and CN's II-XI intact bilaterally Psych Other: Cooperative Medications Administered Discontinued Medications Generic Name Dose Route Start Last Admin Trade Name Freq PRN Reason Stop Dose Admin Prednisone 40 mg 12/30/24 22:58 12/30/24 23:09 Prednisone 20 Mg Tablet PO 12/30/24 22:59 40 mg ONCE ONE Administration Medical Decision Making Medical Decision Making MDM Narrative: 69-year-old male with a history of asthma, morbid obesity, cardiomegaly with heart failure of unclear etiology, anxiety and depression who presents with cough cold symptoms of unclear duration. Patient states he has had a dry repetitive cough with the wheezing at times. Associated generalized malaise and myalgia. Denies the use of tobacco, no chest pain or known fever. Problem: Age, asthma, morbid obesity, heart failure History: Per patient I have considered the following differential diagnoses: Asthma exacerbation, viral syndrome, pneumonia, bronchitis Plan: Patient here with stable vitals, unremarkable exam, I will treat him for mild asthma exacerbation, likely induced by viral syndrome. Our viral panel was negative, the chest x-ray is clear for pneumonia. He does not use tobacco, he does not eat antibiotic coverage for bronchitis I have independently reviewed the following tests: Labs: Viral panel negative Chest x-ray:Findings: Lungs are clear without acute infiltrates. No pneumothorax. Heart size enlarged. No acute bony abnormalities. Impression: No acute processes Differential Diagnosis Differential Diagnoses: The differential diagnosis associated with the presentation includes See medical decision-making Admission/Observation Consideration of admission/observation: Escalation of care including admission/observation considered Not applicable Lab Data MDM Lab Attestation statement: I reviewed the patient's lab results. Labs: Lab Results 12/30/24 Range/Units 20:33 COVID-19 (ANNELIESE) Negative (Negative) COVID-19 Clin Com See Note Influenza Type A (SUSAN) Negative (Negative) Influenza Type B (SUSAN) Negative (Negative) Influenza A & B Note See Note Radiology Impression Discussion of test interpretation with radiology: I have reviewed the radiologist's reading. Discharge Plan Discharge Clinical Impression: Acute viral syndrome, Acute bronchospasm Patient Disposition: Home, Self-Care Instructions: Viral Syndrome (ED), Bronchospasm (ED) Additional Instructions: The viral panel was negative, you were tested for COVID and influenza. The chest x-ray is clear, there was no pneumonia. You likely have another respiratory virus causing your symptoms. You are being treated for your bronchospasm type cough. Use the albuterol as needed for cough and wheezing. Take the steroid taper as directed. You should follow up with your primary care provider within a week for reassessment. Prescriptions: New albuterol sulfate [Ventolin HFA] 90 mcg/actuation HFA aerosol inhaler 2 puff inhalation Q4-6H PRN (Reason: bronchospasm) Qty: 8.5 0RF No Action meclizine 25 mg tablet 25 mg PO TID PRN (Reason: dizziness) Qty: 20 0RF gabapentin 600 mg tablet 600 mg PO DAILY buspirone 10 mg tablet 20 mg PO TID metoprolol succinate 25 mg tablet extended release 24 hr 25 mg PO DAILY furosemide 40 mg tablet 40 mg PO DAILY prazosin 1 mg capsule 1 mg PO BEDTIME simvastatin 20 mg tablet 20 mg PO BEDTIME digoxin 125 mcg (0.125 mg) tablet 125 mcg PO DAILY mirtazapine 15 mg tablet 15 mg PO BEDTIME escitalopram oxalate 20 mg tablet 20 mg PO DAILY Eliquis 5 mg tablet 5 mg PO BID sacubitril-valsartan [Entresto] 24-26 mg tablet 1 tab PO BID Discharge Date/Time: 12/30/24 23:56 Print Language: Macedonian
== END 2024-12-30 23:56 | disposition home or self-care (01) ==
PROVIDERS: Physician Assistant; Emergency Provider Emergency Medicine
DX: B34.9 Viral infection, unspecified (principal); J98.01 Acute bronchospasm; M79.10 Myalgia, unspecified site
CPT/HCPCS: 71046; 87502; 87635; 93005; 99283; 99284

== ENCOUNTER → 2024-12-30 19:30 | Outpatient (BNV) | payer OTHER, SELFPAY | PROVIDERS: Emergency Provider Emergency Medicine; Visit Provider Internal Medicine Cardiovascular Disease | DX: R00.0 Tachycardia, unspecified (principal); I49.3 Ventricular premature depolarization; I44.7 Left bundle-branch block, unspecified; I51.7 Cardiomegaly | CPT/HCPCS: 93010 ==

== ENCOUNTER → 2024-12-30 19:57 | Outpatient (BNV) | payer MEDICARE, MEDICAID, SELFPAY | PROVIDERS: Visit Provider Radiology Diagnostic Radiology | DX: R07.9 Chest pain, unspecified (principal) | CPT/HCPCS: 71046 ==

== ENCOUNTER 2024-12-31 21:47 | Emergency (ER) | payer OTHER, SELFPAY ==
--- OUTSIDE RECORDS SUMMARY | 2024-12-30 23:59 | XMS_ITS | Continuity of Care Document ---
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 Pin Name Role Phone Beck SANCHEZ, Antonia Villatoro Primary Care Phys[id number] Date(s): 11/30/24 - 12/30/24 [facility]/[address] [address]- Encounter Type: Triage Allergies, Adverse Reactions, Alerts No Known Allergies Immunizations Given and Recorded Vaccine Date Status Refusal Reason influenza virus vaccine, inactivated 12/16/23 Give n influenza virus vaccine, inactivated 1 04/17/21 Gi asia influenza virus vaccine, inactivated 11/26/16 Jaguar rded influenza virus vaccine, inactivated 01/14/16 Jaguar rded influenza virus vaccine, inactivated 04/07/15 Jaguar rded influenza virus vaccine, inactivated 01/31/14 Jaguar rded SARS-CoV-2 mRNA ([id number]) vax 04/17/21 Given SARS-CoV-2 (COVID-19) mRNA BNT-162b2 vac 05/20/20 Recorded SARS-CoV-2 (COVID-19) mRNA BNT-162b2 vac 04/29/20 Recorded Zoster Vaccine Live 05/06/16 Recorded tetanus-diphtheria toxoids (Td) 07/15/15 Recorded tetanus-diphtheria toxoids (Td) 09/27/06 Recorded pneumococcal 23-valent vaccine 09/27/06 Recorded 1Result Comment: high dose flu given Medications acetaminophen 650 mg oral tablet, extended release 1 tablet = 650 mg, By Mouth, Every 8 hours, for back and knee pain not to exceed 6 tablets/day Label in dutch, # 100 tablet, 10 Refills, Maintenance, 09/24/24 3:49:00 PM EDT, ER Tablet, [facility], 171, cm, 08/10/24 15:21:00 EDT, Height, 151.5, kg, 08/10/24 15:21:00 EDT, Dry Weight Start Date: 09/24/24 Status: Ordered Medication Dispense Status: Completed Quantity: 100.0 Unit: tablet Total Allowed Fills: 11 Fills Dispensed: 0 Adult Pull Ups- XL Adult Pull Ups- XL, See Instructions, # 120 each, Refills 11, Tot. Refills 11, Maintenance, Dx: Urinary incontinence, R37 3-4 per day, 10/05/24 9:59:00 AM EDT, Supply Start Date: 10/05/24 Status: Ordered Medication Dispense Status: Completed Quantity: 120.0 Unit: each Total Allowed Fills: 12 Fills Dispensed: 0 ARIPiprazole 2 mg oral tablet TAKE 1/2 TABLET BY MOUTH DAILY FOR 1 WEEK THEN INCREASE TO 1 TABLET DAILY THEREAFTER Start Date: 06/04/19 Status: Ordered Medication Dispense Status: Completed Total Allowed Fills: 1 Fills Dispensed: 0 Bathroom Scale Bathroom Scale, See Instructions, # 1 each, Refills 0, Tot. Refills 0, Maintenance, DX: CHF Check weight daily, 01/08/20 2:16:00 PM EST, Supply Start Date: 01/08/20 Status: Ordered Medication Dispense Status: Completed Quantity: 1.0 Unit: each Total Allowed Fills: 1 Fills Dispensed: 0 Boostrix (Tdap) intramuscular suspension 0.5 mL, Intramuscular, Once, # 5 mL, 0 Refills, Soft Stop, 01/22/19 11:17:08 AM EST, Suspension, [facility], 0.5 mL Intramuscular Once Start Date: 01/22/19 Status: Ordered Medication Dispense Status: Completed Quantity: 5.0 Unit: mL Total Allowed Fills: 1 Fills Dispensed: 0 busPIRone 15 mg oral tablet 1 tablet = 15 mg, By Mouth, 2 times a day, 0 Refills, Maintenance, 11/07/18 10:59:59 PM EDT Start Date: 11/07/18 Status: Ordered Medication Dispense Status: Completed Total Allowed Fills: 1 Fills Dispensed: 0 cetirizine 10 mg oral tablet 1 tablet = 10 mg, By Mouth, Daily, # 90 tablet, 3 Refills, Maintenance, 09/26/24 4:51:00 PM EDT, Tablet, [facility], Partial fill upon patient request if the prescription is for a schedule II opioid drug., 171, cm, 08/10/24 15:21:00 EDT, Height, 151.5, kg, 08/10/24 15:21:00 EDT, Dry Weight Start Date: 09/26/24 Stop Date: 09/21/25 Status: Ordered Medication Dispense Status: Completed Quantity: 90.0 Unit: tablet Total Allowed Fills: 4 Fills Dispensed: 0 Indications: Otitis media, unspecified, unspecified ear; Chronic sinusitis, unspecified; Allergic rhinitis, unspecified; diclofenac 1% topical gel 1 application, Topically, 4 times a day, PRN Pain , Severe, to be applied to both knees. label in dutch not to exceed 16 grams/day/single joint of lower extremities, # 100 Gm, 6 Refills, Maintenance, 09/26/24 4:51:00 PM EDT, Gel, [facility], Partial fill upon patient request if the prescription is for a schedule II opioid drug., 171, cm, 08/10/24 15:21:00 EDT, Height, 151.5, kg, 08/10/2514:21:00 EDT, Dry Weight Start Date: 09/26/24 Status: Ordered Medication Dispense Status: Completed Quantity: 100.0 Unit: g Total Allowed Fills: 7 Fills Dispensed: 0 Digital Home BP monitor- Wrist Digital Home BP monitor- Wrist, See Instructions, # 1 each, Refills 0, Tot. Refills 0, Maintenance,Dx: HTN Check BP daily, 11/25/21 3:27:00 PM EDT, Supply Start Date: 11/25/21 Status: Ordered Medication Dispense Status: Completed Quantity: 1.0 Unit: each Total Allowed Fills: 1 Fills Dispensed: 0 disposable bed pads disposable bed pads, See Instructions, # 60 each, Refills 11, Tot. Refills 11, Maintenance, to use 1-2 daily for incontinence, 10/24/24 2:53:00 PM EDT, Supply Start Date: 10/24/24 Status: Ordered Medication Dispense Status: Completed Quantity: 60.0 Unit: each Total Allowed Fills: 12 Fills Dispensed: 0 Indications: Unspecified urinary incontinence; Disposable water proof pads Disposable water proof pads, See Instructions, # 90 each, Refills 6, Tot. Refills 6, Maintenance, Dx:urinary incontinence 3 per day, 10/01/24 12:23:00 AM EDT, Supply Start Date: 10/01/24 Status: Ordered Medication Dispense Status: Completed Quantity: 90.0 Unit: each Total Allowed Fills: 7 Fills Dispensed: 0 Electric Recliner chair Electric Recliner chair, See Instructions, # 1 each, Refills 0, Tot. Refills 0, Maintenance, Dx: Chronic low back pain due to Osteoarthritis, Chronic knee pain due to Osteoarthritis, 07/21/22 4:09:00 PM EDT, Supply Start Date: 07/21/22 Status: Ordered Medication Dispense Status: Completed Quantity: 1.0 Unit: each Total Allowed Fills: 1 Fills Dispensed: 0 Eliquis 5 mg oral tablet 0 Refills, Maintenance, 06/29/22 3:00:00 PM EDT, Partial fill upon patient request if the prescription is for a schedule II opioid drug. Start Date: 06/29/22 Status: Ordered Medication Dispense Status: Completed Total Allowed Fills: 1 Fills Dispensed: 0 Entresto 24 mg-26 mg oral tablet 0 Refills, Maintenance, 06/29/22 3:00:00 PM EDT, Partial fill upon patient request if the prescription is for a schedule II opioid drug. Start Date: 06/29/22 Status: Ordered Medication Dispense Status: Completed Total Allowed Fills: 1 Fills Dispensed: 0 furosemide 40 mg oral tablet 1, tablet, By Mouth, Daily, # 30 tablet, Refills 5, Tot. Refills 5, Maintenance, 09/24/24 3:48:00 PMEDT, Route to Pharmacy Electronically, [facility], 171, cm, 08/10/24 15:21:00 EDT, Height, 151.5, kg, 08/10/24 15:21:00 EDT, Dry Weight Start Date: 09/24/24 Status: Ordered Medication Dispense Status: Completed Quantity: 30.0 Unit: tablet Total Allowed Fills: 6 Fills Dispensed: 0 gabapentin 600 mg oral tablet 1 tablet = 600 mg, By Mouth, Daily at bedtime, for pain and sleep label in dutch, # 90 tablet, 2 Refills, Maintenance, 09/26/24 4:55:00 PM EDT, Tablet, [facility], Partial fill upon patient request if the prescription is for a schedule II opioid drug., 171, cm, 08/10/24 15:21:00 EDT, Height, 151.5, kg, 08/10/24 15:21:00 EDT, Dry Weight Start Date: 09/26/24 Status: Ordered Medication Dispense Status: Completed Quantity: 90.0 Unit: tablet Total Allowed Fills: 3 Fills Dispensed: 0 gloves size large gloves size large, See Instructions, # 1 each, Refills 11, Tot. Refills 11, Maintenance, 1 box monthly, 10/24/24 2:55:00 PM EDT, Supply Start Date: 10/24/24 Status: Ordered Medication Dispense Status: Completed Quantity: 1.0 Unit: each Total Allowed Fills: 12 Fills Dispensed: 0 Indications: Unspecified urinary incontinence; Hand held urinal Hand held urinal, See Instructions, # 1 each, Refills 0, Tot. Refills 0, Maintenance, Dx: Urinary urgency, 10/01/24 12:23:00 AM EDT, Supply Start Date: 10/01/24 Status: Ordered Medication Dispense Status: Completed Quantity: 1.0 Unit: each Total Allowed Fills: 1 Fills Dispensed: 0 Handheld Urinal Handheld Urinal, See Instructions, # 1 each, Refills 0, Tot. Refills 0, Maintenance, Dx: urinary frequency, Low back pain, Bilateral knee pain, Obesity, 08/10/24 4:31:00 PM EDT, Supply Start Date: 08/10/24 Status: Ordered Medication Dispense Status: Completed Quantity: 1.0 Unit: each Total Allowed Fills: 1 Fills Dispensed: 0 LORazepam 1 mg oral tablet See Instructions, 1 tablet By Mouth 1 HOUR BEFORE MRI, MAY REPEAT IN 30 MIN IF NEEDED. LABEL IN MONG[place], # 2 tablet, 0 Refills, Maintenance, 12/16/23 4:13:00 PM EDT, Tablet, [facility]/pharmacy #[id number], Partial fill upon patient request if the prescription is for a schedule II opioid drug., 171, cm, 12/16/23 13:59:00 EDT, Height, 137.54, kg, 12/16/23 13:59:00 EDT, Dry Weight Start Date: 12/16/23 Status: Ordered Medication Dispense Status: Completed Quantity: 2.0 Unit: tablet Total Allowed Fills: 1 Fills Dispensed: 0 meclizine 25 mg oral tablet 1 tablet = 25 mg, By Mouth, 2 times a day, for dizziness label in dutch, # 60 tablet, 3 Refills, Maintenance, 09/26/24 4:52:00 PM EDT, Tablet, [facility], Partial fill upon patient request if the prescription is for a schedule II opioid drug., 171, cm, 08/10/24 15:21:00 EDT, Height, 151.5,kg, 08/10/24 15:21:00 EDT, Dry Weight Start Date: 09/26/24 Status: Ordered Medication Dispense Status: Completed Quantity: 60.0 Unit: tablet Total Allowed Fills: 4 Fills Dispensed: 0 metFORMIN 500 mg oral tablet 1 tablet, By Mouth, Daily before dinner, FOR BLOOD SUGAR., # 30 tablet, 6 Refills, Maintenance, 12/27/22 10:53:00 AM EDT, [facility], 171, cm, 11/17/22 13:59:00 EDT, Height, 130.9, kg, 11/17/22 13:59:00 EDT, Dry Weight Start Date: 12/27/22 Status: Ordered Medication Dispense Status: Completed Quantity: 30.0 Unit: tablet Total Allowed Fills: 1 Fills Dispensed: 0 Metoprolol Succinate ER 25 mg oral tablet, extended release 1, tablet, By Mouth, Daily, FOR BLOOD PRESSURE. AND HEART., # 90 tablet, Refills 1, Tot. Refills 1,Maintenance, 09/24/24 3:48:00 PM EDT, [facility] to [facility], 171, cm,08/10/24 15:21:00 EDT, Height, 151.5, kg, 08/10/24 15:21:00 EDT, Dry Weight Start Date: 09/24/24 Status: Ordered Medication Dispense Status: Completed Quantity: 90.0 Unit: tablet Total Allowed Fills: 2 Fills Dispensed: 0 mirtazapine 45 mg oral tablet 1 tablet = 45 mg, By Mouth, Daily at bedtime, # 30 tablet, 0 Refills, Maintenance, 11/07/18 11:01:10PM EDT, Tablet Start Date: 11/07/18 Status: Ordered Medication Dispense Status: Completed Quantity: 30.0 Unit: tablet Total Allowed Fills: 1 Fills Dispensed: 0 nitroglycerin 0.4 mg/hr transdermal film, extended release APPLY 1 PATCH TOPICALLY EVERY DAY. APPLY IN MORNING AND REMOVE IN EVENING Start Date: 09/03/20 Status: Ordered Medication Dispense Status: Completed Total Allowed Fills: 1 Fills Dispensed: 0 pantoprazole 40 mg oral delayed release tablet 1 tablet, By Mouth, Daily, FOR ACID., # 90 tablet, 1 Refills, Maintenance, 12/27/22 10:53:00 AM EDT, 171, cm, 11/17/22 13:59:00 EDT, Height, 130.9, kg, 11/17/22 13:59:00 EDT, Dry Weight Start Date: 12/27/22 Status: Ordered Medication Dispense Status: Completed Quantity: 90.0 Unit: tablet Total Allowed Fills: 1 Fills Dispensed: 0 [id number] with Electrolytes (Eqv-NuLYTELY) oral powder for reconstitution See Instructions, as directed, # 1 each, 0 Refills, Maintenance, 09/24/20 3:21:00 PM EDT, [id number], ok to sub for any gallon prep, as directed, 171, cm, 09/03/20 13:59:00 EDT, Height, 141.36, kg, 03/01/19 16:12:00 EST, Dry Weight Start Date: 09/24/20 Status: Ordered Medication Dispense Status: Completed Quantity: 1.0 Unit: each Total Allowed Fills: 1 Fills Dispensed: 0 pneumococcal 23-polyvalent vaccine injectable solution 0.5 mL, Intramuscular, Once, # 0.5 mL, 0 Refills, Soft Stop, 01/22/19 11:17:21 AM EST, Solution, [facility], 0.5 mL Intramuscular Once Start Date: 01/22/19 Status: Ordered Medication Dispense Status: Completed Quantity: 0.5 Unit: mL Total Allowed Fills: 1 Fills Dispensed: 0 Pradaxa 150 mg oral capsule TOME SHAYLA C?PSULA DOS VECES AL D?A Start Date: 01/22/19 Status: Ordered Medication Dispense Status: Completed Total Allowed Fills: 1 Fills Dispensed: 0 prazosin 1 mg oral capsule 1 mg, 1, capsule, By Mouth, 3 times a day, Refills 0, Maintenance, 11/07/18 11:02:02 PM EDT Start Date: 11/07/18 Status: Ordered Medication Dispense Status: Completed Total Allowed Fills: 1 Fills Dispensed: 0 raNITIdine 150 mg oral tablet TOME SHAYLA TABLETA DOS VECES AL D A Start Date: 09/03/20 Status: Ordered Medication Dispense Status: Completed Total Allowed Fills: 1 Fills Dispensed: 0 Recliner with lift Recliner with lift, See Instructions, # 1 each, Refills 0, Tot. Refills 0, Maintenance, Dx: chronicpain, fall risk weaknees in legs, 01/20/24 8:07:00 AM EST, Supply Start Date: 01/20/24 Status: Ordered Medication Dispense Status: Completed Quantity: 1.0 Unit: each Total Allowed Fills: 1 Fills Dispensed: 0 Reusable waterproof Pads. Reusable waterproof Pads., See Instructions, # 6 each, Refills 1, Tot. Refills 1, Maintenance, Dx: Urinary incontinence, nocturia, osteoarthritis, 08/10/24 4:30:00 PM EDT, Supply Start Date: 08/10/24 Status: Ordered Medication Dispense Status: Completed Quantity: 6.0 Unit: each Total Allowed Fills: 2 Fills Dispensed: 0 Senna 8.6 mg oral tablet 1, tablet, By Mouth, Daily at bedtime, WITH PLENTY OF WATER FOR CONSTIPATION., # 90 tablet, Refills2, Maintenance, 12/30/22 2:45:00 PM EDT, Route to Pharmacy Electronically, [id number], 171, cm, 11/17/22 13:59:00 EDT, Height, 130.9, kg, 11/17/22 13:59:00 EDT, Dry Weight Start Date: 12/30/22 Status: Ordered Medication Dispense Status: Completed Quantity: 90.0 Unit: tablet Total Allowed Fills: 1 Fills Dispensed: 0 Senna 8.6MG TABS Senna 8.6MG TABS, 1, tablet, By Mouth, Daily at bedtime, # 30 tablet, 6 Refills, WITH PLENTY OF WATER FOR CONSTIPATION., 171, cm, 07/01/21 11:19:00 EDT, Height Start Date: 10/02/21 Status: Ordered Medication Dispense Status: Completed Quantity: 30.0 Unit: tablet Total Allowed Fills: 1 Fills Dispensed: 0 simvastatin 20 mg oral tablet 1, tablet, By Mouth, Daily at bedtime, FOR CHOLESTEROL., # 90 tablet, Refills 3, Tot. Refills 3, Maintenance, 09/26/24 4:51:00 PM EDT, Route to Pharmacy Electronically, [facility], 171, cm, 08/10/24 15:21:00 EDT, Height, 151.5, kg, 08/10/24 15:21:00 EDT, Dry Weight Start Date: 09/26/24 Status: Ordered Medication Dispense Status: Completed Quantity: 90.0 Unit: tablet Total Allowed Fills: 4 Fills Dispensed: 0 standard walker standard walker, See Instructions, # 1 each, Refills 0, Tot. Refills 0, Maintenance, to use daily for ambulation, 11/13/24 4:09:00 PM EDT, Supply Start Date: 11/13/24 Status: Ordered Medication Dispense Status: Completed Quantity: 1.0 Unit: each Total Allowed Fills: 1 Fills Dispensed: 0 Indications: History of falling; walker walker, See Instructions, # 1 each, Refills 0, Tot. Refills 0, Maintenance, to use daily for ambulation, 10/24/24 2:58:00 PM EDT, Supply Start Date: 10/24/24 Status: Ordered Medication Dispense Status: Completed Quantity: 1.0 Unit: each Total Allowed Fills: 1 Fills Dispensed: 0 Indications: Pain in unspecified knee; Problem List Condition Confirmation Course Effective Dates Status H ealth Status Informant Anxiety with depression Confirmed Active Afib Confirmed Active Benign essential hypertension Confirmed Active Chronic low back pain Confirmed Active CHF with cardiomyopathy Confirmed Active Constipation Confirmed Active Diabetes Confirmed Active Glucose intolerance Confirmed Active GERD (gastroesophageal reflux disease) Confirmed Active HLD (hyperlipidemia) Confirmed Active Bilateral chronic knee pain Confirmed Active Moderate cognitive impairment Confirmed Active Obesity, Class III, BMI 40-49.9 (morbid obesity) Confirmed Active *[id number] 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 Begum Confirmed Active Severe obesity Confirmed Active Urge urinary incontinence Confirmed Active Urinary incontinence Confirmed Active Social History Social History Type Response Smoking Status Former smoker, quit more than 30 days ago; Tobacco user in household: No entered on: 07/29/23 Sex Sex Representation Male (finding) Patient Care team information Care Team Personnel Name: Antonia Solares NP Position: [facility] PCO Associate Professional Member Role: PCP Address: [address] [place] [address] Telecom: Name: Annmarie RNSherry Position: [facility] RN Member Role: Primary Care Nurse Name: Katie Rothman [place] Position: [facility] Staff Member Role: Primary Care Nurse Name: Ruthy Cobos [place] Position: [facility] Staff Member Role: Primary Care Nurse Care Team Related Persons Name: TOO CHAU Name: LAN AMBRIZ Name: GENNY ARMSTRONG Name: Julius SIEGEL Insurance Providers Guarantor name: [employer] Plan Information #: 1 Payer: [facility] [employer] Payer Identifier: HANNAH Member Number: [id number] Group Number: [id number] Subscriber Identifier: HANNAH Relationship to Subscriber: self Coverage Type: Medicare Managed Care (Includes Medicare Advantage Plans) Coverage Verification Date: HANNAH Telecom: NA Address:
--- NOTE | 2024-12-31 | ECG_ITS ---
Test Reason : cp Blood Pressure : */* mmHG Vent. Rate : 108 BPM Atrial Rate : 108 BPM P-R Int : 152 ms QRS Dur : 110 ms QT Int : 348 ms P-R-T Axes : 47 -23 122 degrees QTcB Int : 466 ms Sinus tachycardia with occasional Premature ventricular complexes Incomplete left bundle branch block Left ventricular hypertrophy with repolarization abnormality ( R in aVL , [place] product , Romhilt-Arthur ) Abnormal ECG When compared with ECG of 30-Dec-2024 19:30, Premature ventricular complexes are now Present Referred By: Generic ED Physician Electronically Signed By: Kendrick Romero
--- NOTE | ~2024-12-31 | XR_ITS ---
CLINICAL HISTORY: chest pain 2 view chest x-ray Comparison: CR - XR CHEST 2V - 12/30/24 20:12 EST Findings: The lungs are clear. Heart size is normal. No acute fracture. IMPRESSION: 1. No acute findings. This document has been electronically signed by: Kaiden Hoskins MD on 01/01/2025 01:38:53
--- NOTE | ~2024-12-31 | CT_ITS ---
CLINICAL HISTORY: low risk wells citeria, positive d-dimer(461) CT angiography chest with contrast. 3D Postprocessing. Comparison: None provided Findings: The heart is normal in size. There is no pericardial effusion. The ascending aorta is dilated at 4.1 cm. No aortic dissection. Motion artifact limits evaluation of bilateral lower lobe subsegmental branches. No acute pulmonary embolus is identified. The thyroid gland appears normal. There is no mediastinal, hilar, or axillary lymphadenopathy. There is a small sliding hiatal hernia. Mild linear atelectasis is seen in bilateral lower lobes. Limited examination of the upper abdomen demonstrates cholecystectomy clips. Mild degenerative changes are seen in the spine. No acute osseous abnormality is identified. No aggressive lytic or blastic lesion is seen. IMPRESSION: 1. Motion artifact limits evaluation of bilateral lower lobe subsegmental branches. No acute pulmonary embolus is identified. 2. Dilated 4.1 cm ascending aorta. 3. Small sliding hiatal hernia. This document has been electronically signed by: Karine Richardson on 01/01/2025 05:10:48
[2024-12-31 21:55] VITALS: BP 150/101; PULSE 105; RESP 18; TEMP 36.9; O2SAT 96; BMI 48.2
[2024-12-31 22:26] LABS: Hematocrit 51.3 % (42.0-52.0); Hemoglobin 17.2 g/dl (14.0-18.0); Imm Gran Abs Auto 0.17 X10*3/uL (0.00-0.03); Imm Gran Pct Auto 1.1 % (0.0-0.4); Lymphocytes Absolute Auto 2.1 X10*3/uL (1.2-4.9); MANUAL DIFF FLAG SCAN; Mean Corpuscular HGB Conc 33.5 g/dl (31.0-36.0); Mean Corpuscular Hemoglobin 29.7 pg (27.0-33.0); Mean Corpuscular Volume 88.4 fL (80.0-98.0); NRBC Abs Auto 0.000 X10*3/uL (0.0-0.012); NRBC Pct Auto 0.0 /100WBC (0.0-0.2); Platelet Count 318 X10*3/uL (160-400); Red Blood Count 5.80 X10*6/uL (4.60-5.80); SCAN SMEAR FLAG 1; White Blood Count 16.2 X10*3/uL (4.8-10.8)
[2024-12-31 22:33] VITALS: BP 152/57; PULSE 90; RESP 16; TEMP 37; O2SAT 93
[2024-12-31 22:38] LABS: Appearance Urine Clear; Glucose Urine UA Negative (Negative); PH 5.5 (5.0-9.0); Specific Gravity - Urine >= 1.030 (1.005-1.025); UMIC TRIGGER UACC YES
--- NOTE | 2024-12-31 22:44 | ED.GENADULT ---
HPI - General Adult General Chief complaint: General Medical Stated complaint: pain in chest Time Seen by Provider: 12/31/24 22:44 Source: patient, RN notes reviewed and old records reviewed Mode of arrival: ambulatory Limitations: language barrier History of Present Illness ED Provider: Dr. Radha Leung HPI narrative: 70 year old male with history of CHF and morbid obesity (BMI 48) presenting with ?all over body pain? ongoing since immediately prior to arrival. Patient is a very poor historian. He is unable to tell me how or why he is in the hospital. Complains of pain everywhere but unable to localize anything. Denies associated nausea or vomiting. Denies associated shortness of breath. Was seen here yesterday in the emergency department, diagnosed with bronchitis and bronchospasm, discharged with an inhaler. States he never picked up these medications because ?I did not want to?. RN reports that patient was sitting in the lobby and was eventually asked by security if he wanted to be seen. He eventually checked in. He lives alone. Reportedly eating and drinking normally. Related Data Home Medications ?Medication ?Instructions ?Recorded ?Confirmed apixaban 5 mg tablet (Eliquis) 5 mg PO BID 10/13/22 01/01/25 digoxin 125 mcg (0.125 mg) tablet 125 mcg PO DAILY 10/13/22 01/01/25 escitalopram oxalate 20 mg tablet 20 mg PO DAILY 10/13/22 01/01/25 furosemide 40 mg tablet 40 mg PO DAILY 10/13/22 01/01/25 mirtazapine 15 mg tablet 15 mg PO BEDTIME 10/13/22 01/01/25 prazosin 1 mg capsule 1 mg PO BEDTIME 10/13/22 01/01/25 sacubitril 24 mg-valsartan 26 mg 1 tab PO BID 10/13/22 01/01/25 tablet (Entresto) simvastatin 20 mg tablet 20 mg PO BEDTIME 10/13/22 01/01/25 buspirone 10 mg tablet 20 mg PO TID 01/01/25 01/01/25 gabapentin 600 mg tablet 600 mg PO DAILY 01/01/25 01/01/25 metoprolol succinate 25 mg 25 mg PO DAILY 01/01/25 01/01/25 tablet,extended release 24 hr Previous Rx's ?Medication ?Instructions ?Recorded meclizine 25 mg tablet 25 mg PO TID PRN dizziness #20 tabs 07/26/23 albuterol sulfate 90 mcg/actuation 2 puff inhalation Q4-6H PRN 12/30/24 aerosol inhaler (Ventolin HFA) bronchospasm #8.5 grams Allergies Allergy/AdvReac Type Severity Reaction Status Date / Time No Known Allergies Allergy Verified 12/31/24 21:57 Review of Systems Review of Systems: As per HPI, full review of systems performed and negative but for the above mentioned pertinent positives and negatives. [facility] Past Medical History Medical History CHF (congestive heart failure) Cardiomegaly Hypertension Panic anxiety syndrome Anxiety Depression Social History Social History Household Members: None Housing: Apartment Do you presently have visiting nurse or other home services: Yes ([employer] and VNA) Alcohol intake: current Patient Tobacco Use Status: Never used Tobacco Smoked in Last 30 Days: No Use of substances other than those prescribed or required for medical reasons: No Advance Directives: No Advance Directives Information Provided: Yes service: No Physical Exam ED Exam Exam: GENERAL: Unkempt, no acute distress, morbid obesity. SKIN: Normal skin color for ethnicity, warm, dry, no rashes noted. HEENT:? Normocephalic, atraumatic, no stridor, posterior oropharynx nonerythematous, dentition intact, EOMI. NECK: Soft, supple, full ROM, midline structures nontender, no step-offs, no deformities, no lymphadenopathy. CHEST: Heart regular tachycardia, no murmurs, symmetric chest rise and fall. PULMONARY: Clear to auscultation bilaterally, no labored breathing, no wheezes/rhales/rhonchi. ABDOMINAL: Softly protuberant, nontender, quiet bowel sounds in all quadrants. : Deferred. MUSCULOSKELETAL: Normal tone, full range of motion, no deformities, 3+ pitting peripheral edema. NEURO: Alert and oriented to person, CN II through XII intact, equal strength and sensation bilateral upper and lower extremities, no focal neurologic deficits.? PSYCHIATRIC: Flat affect, poor eye contact, withdrawn Vital Signs: Vital Signs - 24 hr 01/01/25 20:00 01/02/25 02:19 01/02/25 08:00 Temperature 98 F 97.9 F Pulse Rate 90 78 97 Respiratory Rate 16 16 18 Blood Pressure 146/70 H 128/88 Pulse Oximetry 94 97 Oxygen Delivery Method Room Air Room Air 01/02/25 09:49 01/02/25 09:49 01/02/25 11:31 Temperature 97.1 F Pulse Rate 97 77 Respiratory Rate 18 Blood Pressure 128/88 128/88 113/69 Pulse Oximetry 99 Oxygen Delivery Method Room Air BMI result Body Mass Index 48.2 Course Course Course Narrative: Time: :05 Date: 01/01/25 Provider: KAYY Page I received patient in sign-out pending PT/case management evaluations. I have evaluated patient at bedside. He is A&O x3. He complains of all over body pain from head to toe however is lying comfortably in the exam bed eating his breakfast. Endorses chronic cough, no shortness of breath or chest pain. On exam, patient is morbidly obese. there is 2+ pitting edema to b/l LEs. lungs are clear. no increased effort of breathing. he is AOX3. no focal neuro deficits. no midline c spine tenderness or signs of trauma. abd soft, ND/NT. He has received p.o. Tylenol for pain, reportedly declining IV/IV meds overnight. He reports multiple falls recently, states he lives home alone. He states he typically has a HAIRPIECE STYLIST come to his house however they have not come for 1 month now however it is unclear why they are not coming. He verbalizes that he is a full code. His workup shows a leukocytosis to 16.2 of unknown significant however patient was recently started on prednisone. no left shift. no anemia. chemistry without acute electrolyte abnormality requiring intervention. he is dehydrated, with BUN 28 and creatinine 0.99. CRP elevated to 3.46, no priors to compare to. his NT pro BNP is elevated to 449 however no priors to compare to, this is technically wnl for his age range. he is on 40 mg lasix daily, unclear if he's been compliant with his home meds since his HAIRPIECE STYLIST is no longer visiting. UA without infection. culture pending. ddimer mildly elevated to 461 (age adjusted cut off 345) and thus CTA chest was obtained which does not demonstrate PE, pneumonia or pulmonary edema. Given overall body pain, will add on CPK to rule out significant rhabdo. He is stable at this time. pending PT/CM evaluations. placed in physician observation. will continue to monitor. 1809 -- CPK wnl. no rhabdo. pending PT/CM. Time: 09:02 Date: 01/02/25 Provider: KAYY Page Patient in physician observation for case management needs. No acute events reported overnight.? No current issues or complaints. VS stable. Physical therapy evaluated patient, recommending short-term rehab. Pending case management and disposition. Will continue to monitor. KAYY Page 01/02/25 0922 Per CM patient will be discharged to [facility] care at 1300 today. Time: 11:39 Date: 01/02/25 Provider: KAYY Page Physician observation ended at 1300. Patient to be placed at a rehab facility. KAYY Page 01/02/25 1413 upon discharge, patient decided that he no longer wanted to be discharged to rehab. He would like to be discharged home. Case management discussed home services with him, he is declining. He states he will get his own HAIRPIECE STYLIST. He is A&O x3 and capable of making his own decisions. He is stable for discharge home at this time. BLS will be transporting him. Medications Administered Generic Name Dose Route Start Last Admin Trade Name Freq PRN Reason Stop Dose Admin Acetaminophen 650 mg 01/01/25 17:59 01/02/25 09:49 Acetaminophen 325 Mg Tablet PO 650 mg QID PRN Administration Pain, Moderate(Pain Scale 4-6) Apixaban 5 mg 01/02/25 09:15 01/02/25 09:49 Apixaban 5 Mg Tablet PO 5 mg BID BREN Administration Atorvastatin Calcium 10 mg 01/02/25 09:15 01/02/25 09:49 Atorvastatin Calcium 10 Mg Tablet PO 10 mg DAILY BREN Administration Buspirone HCl 20 mg 01/02/25 09:15 01/02/25 10:36 Buspirone Hcl 10 Mg Tablet PO 20 mg TID BREN Administration Furosemide 40 mg 01/02/25 09:15 01/02/25 09:49 Furosemide 40 Mg Tablet PO 40 mg DAILY BREN Administration Protocol Gabapentin 600 mg 01/02/25 09:15 01/02/25 09:49 Gabapentin 600 Mg Tablet PO 600 mg DAILY BREN Administration Metoprolol Succinate 25 mg 01/02/25 09:15 01/02/25 09:49 Metoprolol Succinate Er 25 Mg Tab.Er.24h PO 25 mg DAILY BREN Administration Protocol Discontinued Medications Generic Name Dose Route Start Last Admin Trade Name Brina PRN Reason Stop Dose Admin Acetaminophen 650 mg 12/31/24 23:40 12/31/24 23:44 Acetaminophen 325 Mg Tablet PO 12/31/24 23:41 650 mg ONCE ONE Administration Albuterol/Ipratropium 3 ml 01/02/25 02:20 01/02/25 02:22 Albuterol/Iprat 2.5/0.5mg 3 Ml Ampul.Neb INHALE 01/02/25 02:21 3 ml ONCE ONE Administration Iohexol 100 ml 01/01/25 03:31 01/01/25 03:31 Iohexol 350 Mg/Ml 100 Ml Infus..Btl IV 01/01/25 03:32 100 ml ONCE ONE Administration Medical Decision Making Medical Decision Making [facility] Narrative: Patient presents with a chief complaint of headache, body aches. ? The differential diagnosis on this patient includes but is not limited to viral syndrome, migraine headache, tension headache, cluster headache, subarachnoid hemorrhage, dissection, venous thrombosis, meningitis, sinusitis, bleeding or tumor.? Based on history and physical exam, appropriate work-up was initiated. ? Medicated with Tylenol for headache. Patient reports resolution of symptoms after Tylenol. His vital signs have normalized where he was initially tachycardic he is now resting with a heart rate of 86. His blood pressure also improved after Tylenol. His workup shows an elevated white blood cell count of unclear significance. He has no fever, no other signs and symptoms of infection and is not endorsing a cough, abdominal pain or vomiting. He does describe some diffuse body aches but otherwise I see no indication for antibiotics at this point. D-dimer elevated. We will add on a CTA to evaluate for pulmonary embolism and occult pneumonia. CTA does not show evidence of pneumonia. He has been resting comfortably with normal vital signs. BNP slightly elevated which could be related to his shortness of breath yesterday however, he has no focal infiltrates. At this point, I would like to keep him as a social hold as I feel it is likely unsafe for him to go home saying that he lives alone and was somewhat confused upon arrival to the emergency department tonight. At minimum, he could benefit from a physical therapy evaluation. Signing out to oncoming provider pending this and final disposition. Differential Diagnosis Differential Diagnoses: The differential diagnosis associated with the presentation includes (as above) Admission/Observation Consideration of admission/observation: Escalation of care including admission/observation considered Lab Data MDM Lab Attestation statement: I reviewed the patient's lab results. 12/31/24 22:20 12/31/24 22:20 Labs: Lab Results 12/31/24 12/31/24 12/31/24 Range/Units 22:20 22:20 22:30 WBC 16.2 H (4.8-10.8) X10*3/uL RBC 5.80 (4.60-5.80) X10*6/uL Hgb 17.2 (14.0-18.0) g/dl Hct 51.3 (42.0-52.0) % MCV 88.4 (80.0-98.0) fL MCH 29.7 (27.0-33.0) pg MCHC 33.5 (31.0-36.0) g/dl RDW 13.8 (11.0-16.0) % Plt Count 318 (160-400) X10*3/uL MPV 9.7 (9.4-12.4) fL Immature Gran % (Auto) 1.1 H (0.0-0.4) % Neut % (Auto) 75.4 H (45-73) % Lymph % (Auto) 13.2 L (20-40) % Walthall % (Auto) 9.8 (2-11) % Eos % (Auto) 0.1 (0-4) % Baso % (Auto) 0.4 (0-2) % Lymph # (Auto) 2.1 (1.2-4.9) X10*3/uL [place]all # (Auto) 1.6 H (0.1-1.2) X10*3/uL Eos # (Auto) 0.0 (0.0-0.4) X10*3/uL Baso # (Auto) 0.1 (0.0-0.2) X10*3/uL Abs Immat Gran (auto) 0.17 H (0.00-0.03) X10*3/uL Absolute Neuts (auto) 12.2 H (2.0-8.3) x10*3/uL Absolute Nucleated RBC 0.000 (0.0-0.012) X10*3/uL Nucleated RBC % (auto) 0.0 (0.0-0.2) /100WBC Smear Tech's Comments VERIFIED D-Dimer High Sensitivty NG/ML Sodium 141 (135-145) mmol/L Potassium 3.8 (3.3-5.1) mmol/L Chloride 104 (96-108) mmol/L Carbon Dioxide 23 (22-29) mmol/L Anion Gap 18 (12-20) BUN 28 H (9-16) mg/dL Creatinine 0.99 (0.5-1.4) mg/dL Estim Creat Clear Calc 95.1 Estimated GFR > 60 Fasting Glucose 126 H (60-99) mg/dL Calcium 9.7 (8.4-10.2) mg/dL Magnesium 2.1 (1.6-2.6) mg/dL Total Bilirubin 0.7 (0.0-1.0) mg/dL AST 54 H (5-37) U/L ALT 34 (0-40) U/L Alkaline Phosphatase 120 H (39-117) U/L Total Creatine Kinase 37 L (38-174) U/L Troponin I High Sens 21.9 (<3.5-35.0) ng/L C-Reactive Protein 3.46 H (< or = 0.50) mg/dL NT-Pro-B Natriuret Pep 449.9 H (<300) pg/mL Total Protein 8.0 (6.5-8.0) g/dL Albumin 4.2 (3.5-5.0) g/dL Specimen Comment Cancelled Cancelled Urine Color Dark Yellow Urine Appearance Clear Urine pH 5.5 (5.0-9.0) Ur Specific Condon >= 1.030 H (1.005-1.025) Urine Protein 30 (1+) H (Neg-Trace) mg/dL Urine Glucose (UA) Negative (Negative) mg/dL Urine Ketones 15 (Negative) mg/dL Urine Blood Trace H (Negative) Urine Nitrite Negative (Negative) Ur Leukocyte Esterase Negative (Negative) Urine RBC 3-5 H (0-2) /HPF Urine WBC 0-5 (0-5) /HPF Ur Squamous Epith Cells 0-2 (0-2) /HPF Urine Bacteria None Seen (None Seen) Hyaline Casts 0-2 (0-2) /LPF COVID-19 (ANNELIESE) (Negative) COVID-19 Clin Com Influenza Type A (SUSAN) (Negative) Influenza Type B (SUSAN) (Negative) Influenza A & B Note 01/01/25 Range/Units 01:35 WBC (4.8-10.8) X10*3/uL RBC (4.60-5.80) X10*6/uL Hgb (14.0-18.0) g/dl Hct (42.0-52.0) % MCV (80.0-98.0) fL MCH (27.0-33.0) pg MCHC (31.0-36.0) g/dl RDW (11.0-16.0) % Plt Count (160-400) X10*3/uL MPV (9.4-12.4) fL Immature Gran % (Auto) (0.0-0.4) % Neut % (Auto) (45-73) % Lymph % (Auto) (20-40) % Walthall % (Auto) (2-11) % Eos % (Auto) (0-4) % Baso % (Auto) (0-2) % Lymph # (Auto) (1.2-4.9) X10*3/uL Walthall # (Auto) (0.1-1.2) X10*3/uL Eos # (Auto) (0.0-0.4) X10*3/uL Baso # (Auto) (0.0-0.2) X10*3/uL Abs Immat Gran (auto) (0.00-0.03) X10*3/uL Absolute Neuts (auto) (2.0-8.3) x10*3/uL Absolute Nucleated RBC (0.0-0.012) X10*3/uL Nucleated RBC % (auto) (0.0-0.2) /100WBC Smear Tech's Comments D-Dimer High Sensitivty 461 NG/ML Sodium (135-145) mmol/L Potassium (3.3-5.1) mmol/L Chloride (96-108) mmol/L Carbon Dioxide (22-29) mmol/L Anion Gap (12-20) BUN (9-16) mg/dL Creatinine (0.5-1.4) mg/dL Estim Creat Clear Calc Estimated GFR Fasting Glucose (60-99) mg/dL Calcium (8.4-10.2) mg/dL Magnesium (1.6-2.6) mg/dL Total Bilirubin (0.0-1.0) mg/dL AST (5-37) U/L ALT (0-40) U/L Alkaline Phosphatase (39-117) U/L Total Creatine Kinase (38-174) U/L Troponin I High Sens (<3.5-35.0) ng/L C-Reactive Protein (< or = 0.50) mg/dL NT-Pro-B Natriuret Pep (<300) pg/mL Total Protein (6.5-8.0) g/dL Albumin (3.5-5.0) g/dL Specimen Comment Urine Color Urine Appearance Urine pH (5.0-9.0) Ur Specific Condon (1.005-1.025) Urine Protein (Neg-Trace) mg/dL Urine Glucose (UA) (Negative) mg/dL Urine Ketones (Negative) mg/dL Urine Blood (Negative) Urine Nitrite (Negative) Ur Leukocyte Esterase (Negative) Urine RBC (0-2) /HPF Urine WBC (0-5) /HPF Ur Squamous Epith Cells (0-2) /HPF Urine Bacteria (None Seen) Hyaline Casts (0-2) /LPF COVID-19 (ANNELIESE) Negative (Negative) COVID-19 Clin Com See Note Influenza Type A (SUSAN) Negative (Negative) Influenza Type B (SUSAN) Negative (Negative) Influenza A & B Note See Note Independent Interpretation I performed an independent interpretation of an: EKG Interpretation: My independent interpretation of the ECG reveals normal sinus tachycardia with rate of 108, frequent PVCs, leftward axis, nonspecific interventricular conduction delay, LVH, no ST elevations or depressions to suggest ischemic changes, relatively unchanged from previous on 12/30/2024. Radiology Impression Discussion of test interpretation with radiology: I have reviewed the radiologist's reading. Radiologist Impression: CT angiography chest with contrast. 3D Postprocessing. Findings: The heart is normal in size. There is no pericardial effusion. The ascending aorta is dilated at 4.1 cm. No aortic dissection. Motion artifact limits evaluation of bilateral lower lobe subsegmental branches. No acute pulmonary embolus is identified. The thyroid gland appears normal. There is no mediastinal, hilar, or axillary lymphadenopathy. There is a small sliding hiatal hernia. Mild linear atelectasis is seen in bilateral lower lobes. Limited examination of the upper abdomen demonstrates cholecystectomy clips. Mild degenerative changes are seen in the spine. No acute osseous abnormality is identified. No aggressive lytic or blastic lesion is seen. IMPRESSION: 1. Motion artifact limits evaluation of bilateral lower lobe subsegmental branches. No acute pulmonary embolus is identified. 2. Dilated 4.1 cm ascending aorta. 3. Small sliding hiatal hernia. External Record Review External record reviewed: Inpatient record Chronic Conditions Patient?s care impacted by: Other (CHF) Social Determinants Patient?s care significantly limited by Social Determinants of Health including: Other Social Determinant of Health Discharge Plan Discharge Clinical Impression: Myalgia, Leukocytosis, Acute exacerbation of congestive heart failure Patient Disposition: Home, Self-Care Instructions: Heart Failure (ED), Heart Healthy Diet (ED) Additional Instructions: Your workup is reassuring. Physical therapy evaluated you and is requesting short-term rehab. You were initially agreeable to being discharged to [facility] for rehab. You are now declining and deciding to go home instead. Case management has offered to set up home services for you however you are declining, state you will find your own HAIR[employer]ECE STYLIST. Please continue all home medications as prescribed. Return with any new or worsening symptoms. In the case of an emergency call 911. Prescriptions: No Action meclizine 25 mg tablet 25 mg PO TID PRN (Reason: dizziness) Qty: 20 0RF gabapentin 600 mg tablet 600 mg PO DAILY buspirone 10 mg tablet 20 mg PO TID metoprolol succinate 25 mg tablet extended release 24 hr 25 mg PO DAILY furosemide 40 mg tablet 40 mg PO DAILY prazosin 1 mg capsule 1 mg PO BEDTIME simvastatin 20 mg tablet 20 mg PO BEDTIME digoxin 125 mcg (0.125 mg) tablet 125 mcg PO DAILY mirtazapine 15 mg tablet 15 mg PO BEDTIME escitalopram oxalate 20 mg tablet 20 mg PO DAILY Eliquis 5 mg tablet 5 mg PO BID sacubitril-valsartan [Entresto] 24-26 mg tablet 1 tab PO BID albuterol sulfate [Ventolin HFA] 90 mcg/actuation HFA aerosol inhaler 2 puff inhalation Q4-6H PRN (Reason: bronchospasm) Qty: 8.5 0RF Referrals: [facility] [place] [Outside] Socorro Meza PA [Primary Care Provider, Internal Medicine] Print Language: Nepali
[2024-12-31 22:47] LABS: Alanine Aminotransferase 34 U/L (0-40); Albumin Level 4.2 g/dL (3.5-5.0); Alkaline Phosphatase 120 U/L (39-117); Anion Gap 18 (12-20); Aspartate Amino Transferase 54 U/L (5-37); Blood Urea Nitrogen 28 mg/dL (9-16); Calcium 9.7 mg/dL (8.4-10.2); Carbon Dioxide 23 mmol/L (22-29); Chloride 104 mmol/L (96-108); Creatinine Clr Calc Pharmacy 95.1; Estimated Glomerular Filt Rate > 60; Potassium 3.8 mmol/L (3.3-5.1); Sodium 141 mmol/L (135-145); Total Protein 8.0 g/dL (6.5-8.0); Troponin-I High Sensitivity 21.9 ng/L (<3.5-35.0)
--- OUTSIDE RECORDS SUMMARY | 2024-12-31 22:49 | XMS_ITS | Clinical Summary ---
Author Organization [facility] revoPT [facility] Address [address] [place] [address] Phone Care Team Providers Care Manufacturing Quality Engineer Name Role Phone PasserSocorro Primary Care Provider [phone] Allergies No known active allergies Medications busPIRone [...] but not all possible risks including , ID, CVA, damage to artery wrist arrhythmia infection allergy to the dye. I have given him material to read about this. I told him if you would like to proceed to call me I would schedule this. Do it at [facility]. Also not clear if the aortic regurgitation [...] Type Department Care Team Description 11/02/2024 Telephone [facility] [address] [place] [address] Heraclio Szymanski MD from Last 3 Months Surgical [...] ilateral chronic knee pain Constipation DX:Constipation Diabetes ([facility] V24, [facility] V28) DX:Diabetes ([facility]) GERD (gastroesophageal reflux disease) DX:GERD (gastroesophageal reflux disease) Glucose intolerance DX:Glucose i ntolerance Obesity, Class III, BMI 40-4 9.9 (morbid obesity) ([facility] V28) DX:Obesity, Class III, BMI 4 0-49.9 (morbid obesity) ([facility]) Social History Tobacco Use Types Packs/Day [...] Most Recently Relevant to Health Maintenance Insurance [facility] Member Subscriber Plan / Payer (Ef fective 2023-Present) Name:Chris Parham Relation to Subscriber:Self Name:Chris Parham Payer ID:[id number] Group ID:[id number] Type:Not on file Address: [place] [address] [address] [id number] Care Teams Manufacturing Quality Engineer Relationship Specialty Start Date End Date Socorro Meza PA [address] [place] [phone] PCP - General Physician Director Building 04/09/24
--- NOTE | 2024-12-31 23:00 | PC.NURSE ---
Dr. Leung at bedside w/ bellstaff. Pt reports all over body pain from head to toes , also reports swelling of lower extremities. Denies shortness of breath, N/V/D, or dizziness. Pt declines additional blood work and IV. Pt reports he uses a cane. Declines nonskid socks. Chair alarm attached to pt & stretcher. call alvarado within reach.
[2024-12-31 23:45] VITALS: BP 139/85; PULSE 97; RESP 18; O2SAT 93
[2025-01-01 00:12] LABS: Magnesium 2.1 mg/dL (1.6-2.6)
[2025-01-01 01:49] LABS: D Dimer High Sensitivity 461 NG/ML
[2025-01-01 01:57] LABS: COVID-19 Test Negative (Negative); IDNOW Serial# 58CA691E
[2025-01-01 01:58] LABS: IDNOW Serial# 55D5AD1C; Influenza B2 Negative (Negative)
[2025-01-01 02:26] LABS: NT Pro B Type Natriuretic Pept 449.9 pg/mL (<300)
[2025-01-01] MEDS: iohexoL 350 MG/ML 100 ML INFUS..BTL IV (03:31)
[2025-01-01 04:21] VITALS: BP 127/76; PULSE 86; RESP 16; TEMP 36.9; O2SAT 94
[2025-01-01 08:00] VITALS: BP 165/78; PULSE 80; RESP 18; TEMP 36.3; O2SAT 96
--- NOTE | 2025-01-01 10:33 | MHC.CM.ED ---
Received consult for assessment of d/c needs: Met with pt using inventory assistant: Pt states he resides on the second floor of an apt w/elevator access and uses a walker and had a LAP REGULATOR for 39 hrs/week until recently when his LAP REGULATOR left for another position. Pt states he is unable to manage his own care needs including bathing, cooking, shopping or cleaning. I don't know how Pt states he has 3 dtrs but they are unable to help. His emergency contact is his ex spouse. No HCP at this time as he needs to think about who he would choose. PT eval recommending STR - broad referrals made- awaiting SNF acceptance and [facility] auth. BLS to transport.
[2025-01-01 13:50] VITALS: BP 139/74; PULSE 81; RESP 16; TEMP 36.6; O2SAT 94
[2025-01-01 20:00] VITALS: BP 146/70; PULSE 90; RESP 16; TEMP 36.6; O2SAT 94
--- NOTE | 2025-01-01 21:00 | PHA.MEDREC ---
Addendum entered by Ananda Rivera PharmD 01/01/25 21:32: MED REC CHECKED BY [facility] Original Note: Pharmacy Consult ? Medication Reconciliation Pharmacy has completed the medication reconciliation. Patient is a poor historian. Utilized claims to confirm med list.
[2025-01-02 02:19] VITALS: PULSE 78; RESP 16; O2SAT 94
[2025-01-02] MEDS: Albuterol/Iprat 2.5/0.5MG 3 ML AMPUL.NEB INHALE (02:22)
--- NOTE | 2025-01-02 03:52 | PC.NURSE ---
Assumed care of patient at 1900 , primarily bulgarian speaking. A/O x4, resting throughout night. Urinating in bathroom. Patient c/o generalized pain , medicated with Tylenol with good effect. Purposeful rounding performed, safety measures in place, bed alarm communication equipment repairer alvarado within reach.
[2025-01-02 08:00] VITALS: BP 128/88; PULSE 97; RESP 18; TEMP 36.6; O2SAT 97
--- NOTE | 2025-01-02 08:04 | PC.NURSE ---
This RN assumed care of patient @ 0700 Patient resting comfortably in bed Patient estonian speaking but knows some tristanian Patient 1 assist with walker Patient high fall risk, bed alarm on and functioning, yellow socks on feet, call alvarado in reach Patient expected to go to [facility]
--- NOTE | 2025-01-02 09:18 | MHC.CM.ED ---
Patient remains in ER overflow. Insurance auth has been obtained by [facility]. Patient can leave at 1pm. Elis LIZAMA booked. Med nec with chart. Patient, Blanco JUNG and Lorna SULTANA aware. Continue to monitor for d/c needs.
[2025-01-02 09:49] VITALS: BP 128/88; PULSE 97
[2025-01-02] MEDS: Metoprolol Succinate ER 25 MG TAB.ER.24H PO (09:49)
[2025-01-02 11:31] VITALS: BP 113/69; PULSE 77; RESP 18; TEMP 36.2; O2SAT 99
--- NOTE | 2025-01-02 14:16 | PC.NURSE ---
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 Pt refusing stating he does not need to go there and would like to go home. Ryann, Hoisting Machine Operator aware and in to speak with patient. Pt remains stating he wants to go home. EMS to transport patient home at this time.
--- NOTE | 2025-01-02 14:23 | MHC.CM.ED ---
Received notification from Blanco JUNG that patient is declining STR at this time. Met with patient and power lineworker in regards to discharge planning. T/W reminded patient that he doesn't have anyone to help at home, which is why STR was pursued. Patient verbalizes understanding but is adamant he will return home and find someone to care for himself. BLS transport will bring patient home. [facility] and [facility] made aware. Lorna SULTANA also made aware. Continue to monitor for d/c needs.
== END 2025-01-02 14:36 | disposition home or self-care (01) ==
PROVIDERS: Emergency Provider Emergency Medicine; PCP Physician Assistant Medical
DX: M79.10 Myalgia, unspecified site (principal); I50.9 Heart failure, unspecified; R51.9 Headache, unspecified; R06.02 Shortness of breath; R07.89 Other chest pain; D72.829 Elevated white blood cell count, unspecified; R26.81 Unsteadiness on feet; E66.01 Morbid (severe) obesity due to excess calories; Z68.42 Body mass index [BMI] 45.0-49.9, adult; Z11.52 Encounter for screening for COVID-19; Z79.899 Other long term (current) drug therapy
CPT/HCPCS: 36415; 71046; 71275; 80053; 81001; 82550; 83735; 83880; 84484; 85025; 85379; 86140; 87502; 87635; 93005; 94640; 97162; 99285; Q9967

== ENCOUNTER → 2024-12-31 21:50 | Outpatient (BNV) | payer OTHER, SELFPAY | PROVIDERS: Emergency Provider Emergency Medicine; Visit Provider Internal Medicine Cardiovascular Disease | DX: I49.3 Ventricular premature depolarization (principal); I44.7 Left bundle-branch block, unspecified; I51.7 Cardiomegaly; R00.0 Tachycardia, unspecified | CPT/HCPCS: 93010 ==

== ENCOUNTER → 2024-12-31 22:45 | Outpatient (BNV) | payer OTHER, SELFPAY | PROVIDERS: Emergency Provider Emergency Medicine; Visit Provider Radiology Diagnostic Radiology | DX: R07.9 Chest pain, unspecified (principal) | CPT/HCPCS: 71046 ==

== ENCOUNTER → 2025-01-01 02:39 | Outpatient (BNV) | payer OTHER, SELFPAY | PROVIDERS: Emergency Provider Emergency Medicine; Visit Provider Radiology Vascular & Interventional Radiology | DX: I77.810 Thoracic aortic ectasia (principal); K44.9 Diaphragmatic hernia without obstruction or gangrene | CPT/HCPCS: 71275 ==

== ENCOUNTER 2025-01-18 22:37 | Emergency (ER) | payer OTHER, SELFPAY ==
--- NOTE | ~2025-01-18 | CT_ITS ---
CLINICAL HISTORY: Abd Pain CT abdomen and pelvis with contrast Comparison: CT/SR - CT ABDOMEN PELVIS WITH IV CONTRAST - 10/13/22 17:11 EDT Findings: There is mild atelectasis in the lower lobes. There is a very small hiatal hernia. Patient is status post cholecystectomy. The liver, pancreas, spleen, and adrenal glands are unremarkable. There is a punctate nonobstructing right renal stone. Left kidney is unremarkable. The appendix is not visualized. There are no findings of appendicitis. The rectum and distal sigmoid are moderately distended with stool. Stomach and small bowel are unremarkable. There is no free fluid or free air. The bladder is decompressed with a Barton catheter. There are no enlarged lymph nodes. The aorta is normal in diameter. There is a stable moderate sized fat containing ventral hernia. There is no fracture or suspicious lytic or sclerotic lesion. There are degenerative changes in the lumbar spine. IMPRESSION: 1. Rectum and distal sigmoid are moderately distended with stool. Correlate for constipation. Fecal impaction is not excluded. 2. Additional chronic findings as above. This document has been electronically signed by: Dung Benavidez MD on 01/19/2025 02:26:04
[2025-01-18 22:58] VITALS: BP 132/71; BP 150/92; PULSE 71; PULSE 93; RESP 20; TEMP 36.7; O2SAT 95; O2SAT 96; BMI 49.4
--- NOTE | 2025-01-18 23:20 | PC.NURSE ---
Pt attempted to void. Very minimal amount voided. Sample sent to the lab for testing. Bladder scan post void shows 334 cc of urine. Provider made aware. Verbal order to place a cath. Pt agrees with plan.
--- OUTSIDE RECORDS SUMMARY | 2025-01-18 23:35 | XMS_ITS | Clinical Summary ---
Author Organization [facility] [employer] [facility] Address [address] [place] [address] Phone Care Team Providers Care Competitive Intelligence Manager Name Role Phone PasserSocorro Primary Care Provider [phone] Allergies No known active allergies Medications busPIRone [...] but not all possible risks including , [place], CVA, damage to artery wrist arrhythmia infection allergy to the dye. I have given him material to read about this. I told him if you would like to proceed to call me I would schedule this. Do it at [facility]. Also not clear if the aortic regurgitation [...] Type Department Care Team Description 11/02/[address] 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) ([facility] V28) DX:Obesity, Class III, BMI 4 0-49.9 (morbid obesity) ([facility]) Social History Tobacco Use Types Packs/Day Years [...] Most Recently Relevant to Health Maintenance Insurance [facility] Member Subscriber Plan / Payer (Ef fective 2023-Present) Name:Chris Parham Relation to Subscriber:Self Name:Chris Parham Payer ID:[id number] Group ID:[id number] Type:Not on file Address: [place] [address] [address] [phone] Care Teams Competitive Intelligence Manager Relationship Specialty Start Date End Date Socorro Meza PA [address] [place] [phone] PCP - General Physician Film Cutter 04/09/24
--- OUTSIDE RECORDS SUMMARY | 2025-01-18 23:35 | XMS_ITS | Data Portability ---
Author Organization [email or web address] [facility] Address [address] [place] [address] Care Team Providers Care U.[place]. Senator Name Role Phone HIM [facility] OTHER [facility] Primary Care P pam Assessment Encounter Date Assessment Date Assessment LastModified by Organization Details LastModified Time 06/11/2024 06/11/2024 I provided real -time medical direction via phone for this encounter and was available for additional phone-based assistance as needed. I have reviewed and agree with the Assessment and Plan as documented by the Mail Distributor. Patient given the opportunity to ask questions. Our service contacted for an assessment of: Question of tachypnea As per above, patient's MANAGER INTELLIGENCE thought the patient had tachypnea and called for visit. Upon arrival the landscape architecture professor, the patient had no tachypnea and otherwise felt well. The patient had no complaints. Per landscape architecture professor on the scene, Vital signs are stable [...] IN 30 MIN IF NEEDED. LABEL IN [place] active Not Available Not Available No t [...] Vitals Date Recorded Body temperature Oxygen saturation Body weight Body height Heart rate Respiratory rate Systolic And Diastolic Provider Name and Address Organization Details Last Updated DateTime 5 98.6 [degF] 97 % 855939. 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 Functional Status None recorded. Mental Status None recorded. Family History Nothing Reported. Medical History No medical history recorded. Past Encounters Encounter ID Performer Location Encounter Start Date Encounter Closed Date Diagnosis/Indication Diagnosis SNOMED-CT Code Diagnosis ICD10 Code Diagnosis IMO Codes Diagnosis Note [id number] Mayte Pro MD Main - [facility] [address] [place] [address] 06/11/2024 14:43:42 06/11/2024 18:10:01 Physical examination 4037063 Z00.00 [id number] Health Concerns Section Related Observation LastModified by Organization Detai ls LastModified Time None Recorded Concern Status LastModified by Organization Details LastModified Time None Recorded Advance Directives Directive None Recorded Payers Insurance Date Sequence Insurance Name Policy Number Policy Armando Covered Member ID Armando Member ID Guarantor Name 06/11/2024 1 [facility] - DOS ON OR AFTER 2022 - DUAL ELIGIBLE - LONG-TERM OPTIONS AND ONE CARE (MEDICARE REPLACEMENT/ADV ANTAGE - HMO) Chris Parham [id number] Chris Parham Notes Date Note Type Note Provider Name and Address Organization Details Recorded Time 06/11/2024 text/html CRC Nurse Triage Notes (Wilberto Owen - RN): Reason For Request: Pt's MANAGER INTELLIGENCE reporting fatigue (member does not have asthma but MANAGER INTELLIGENCE describes the fatigue as such)>SOB, belabored breathing>symptoms [...] PMH: Hypertension PMH Reviewed at 06/11/2024 - 13:11 Allergies Reviewed at 06/11/2024 - 13:11 Comments: Mission Commander verified the patient's name//address and phone number. Pt's MANAGER INTELLIGENCE calling reporting patient is breathing faster then normal. MANAGER INTELLIGENCE reports pt does not have asthma that she is aware of. MANAGER INTELLIGENCE reports pt's symptoms started over the weekend. MANAGER INTELLIGENCE reports pt is not able to talk as much as normal because of the SOB. MANAGER INTELLIGENCE reports pt declines going to the ER. Education provided on the response time and the patient was advised to monitor reported s/s and seek emergency treatment if needed -Citlali Owen RN ..................... ..................... ..................... ..................... ..................... ..................... ............... Mail Distributor Note From Amarjit Sexton: Dispatched to the call address for the male with shortness of breath. MANAGER INTELLIGENCE advises she feels the Pt is breathing fast. Pt states he feels OK, sometimes he feels a little short of breath but that it is not new. Pt denies chest pain, diff breathing/sob, n/v/d, cough, headache, fevers or any other symptoms at this time. Pt states he believes his occasional SoB is due to his obesity. MANAGER INTELLIGENCE advises he does not move around very [...] was assessed with full set of vitals. [facility] consulted. . Red flags discussed. ALL times are approx. ..................... ..................... ..................... ..................... ..................... ..................... ............... [facility] Consulted: Mayte Pro ..................... ..................... ..................... ..................... ..................... ..................... ............... Disposition: Fulfilled Mayte Pro MD [address] [facility], [place], [address], [employer] 06/11/2024 17:56:06
[2025-01-18 23:36] LABS: Appearance Urine Clear; Glucose Urine UA Negative (Negative); PH 5.0 (5.0-9.0); Specific Gravity - Urine 1.010 (1.005-1.025)
[2025-01-18 23:41] LABS: Hematocrit 46.6 % (42.0-52.0); Hemoglobin 15.7 g/dl (14.0-18.0); Imm Gran Abs Auto 0.22 X10*3/uL (0.00-0.03); Imm Gran Pct Auto 1.6 % (0.0-0.4); Lymphocytes Absolute Auto 1.9 X10*3/uL (1.2-4.9); MANUAL DIFF FLAG NO; Mean Corpuscular HGB Conc 33.7 g/dl (31.0-36.0); Mean Corpuscular Hemoglobin 30.0 pg (27.0-33.0); Mean Corpuscular Volume 89.1 fL (80.0-98.0); NRBC Abs Auto 0.000 X10*3/uL (0.0-0.012); NRBC Pct Auto 0.0 /100WBC (0.0-0.2); Platelet Count 264 X10*3/uL (160-400); Red Blood Count 5.23 X10*6/uL (4.60-5.80); White Blood Count 13.7 X10*3/uL (4.8-10.8)
--- NOTE | 2025-01-19 00:02 | ED.MALEGU ---
HPI - Male Genitourinary General Chief complaint: Urogenital-Male Stated complaint: diff urinating Time Seen by Provider: 01/18/25 22:54 History of Present Illness ED Provider: Alaina Avendaño HPI Narrative: 70-year-old male with medical history significant for cardiomegaly, CHF, diverticulitis of the colon with prior perforation, presents to the ER with chief complaint of difficulty voiding and painful urination. Patient reports that he has been unable to void completely for 2 weeks, and he has been constipated for about 1 week. He reports that when he tries to urinate, he has to push it down. He denies any nausea or vomiting, does endorse generalized abdominal pain. No rectal pain or pressure. No flank pain. No noted hematuria. No fever, chills. No chest pain, shortness of breath. Related Data Home Medications ?Medication ?Instructions ?Recorded ?Confirmed apixaban 5 mg tablet (Eliquis) 5 mg PO BID 10/13/22 01/01/25 digoxin 125 mcg (0.125 mg) tablet 125 mcg PO DAILY 10/13/22 01/01/25 escitalopram oxalate 20 mg tablet 20 mg PO DAILY 10/13/22 01/01/25 furosemide 40 mg tablet 40 mg PO DAILY 10/13/22 01/01/25 mirtazapine 15 mg tablet 15 mg PO BEDTIME 10/13/22 01/01/25 prazosin 1 mg capsule 1 mg PO BEDTIME 10/13/22 01/01/25 sacubitril 24 mg-valsartan 26 mg 1 tab PO BID 10/13/22 01/01/25 tablet (Entresto) simvastatin 20 mg tablet 20 mg PO BEDTIME 10/13/22 01/01/25 buspirone 10 mg tablet 20 mg PO TID 01/01/25 01/01/25 gabapentin 600 mg tablet 600 mg PO DAILY 01/01/25 01/01/25 metoprolol succinate 25 mg 25 mg PO DAILY 01/01/25 01/01/25 tablet,extended release 24 hr Previous Rx's ?Medication ?Instructions ?Recorded meclizine 25 mg tablet 25 mg PO TID PRN dizziness #20 tabs 07/26/23 albuterol sulfate 90 mcg/actuation 2 puff inhalation Q4-6H PRN 12/30/24 aerosol inhaler (Ventolin HFA) bronchospasm #8.5 grams hyoscyamine sulfate 0.125 mg 0.25 mg (2 x 0.125 mg) PO QID PRN 01/19/25 tablet (Levsin) bladder spasms 5 days #20 tabs Allergies Allergy/AdvReac Type Severity Reaction Status Date / Time No Known Allergies Allergy Verified 01/18/25 23:03 Review of Systems Review of Systems: ROS is otherwise negative unless mentioned in HPI. [facility] Past Medical History Medical History CHF (congestive heart failure) Cardiomegaly Hypertension Panic anxiety syndrome Anxiety Depression Social History Social History Household Members: None Housing: Apartment Do you presently have visiting nurse or other home services: Yes ([employer] and VNA) Alcohol intake: current Alcohol intake frequency: does not drink Patient Tobacco Use Status: Never used Tobacco service: No Physical Exam Exam: Exam: Nursing notes and vital signs reviewed. Constitutional: Well-appearing, NAD. Alert. Oriented X3. Eyes: Pupils equal, round and reactive to light. ENT: Pharynx normal. Neck: Normal inspection. Neck supple. CVS: Normal heart rate and rhythm. Pulses normal. Respiratory: No respiratory distress. Breath sounds normal. Abdomen: Soft and nontender. +BSx4. Skin: Skin warm and dry. Normal skin color. Extremities: No lower extremity edema. Neuro: Oriented X 3. No motor deficit. Vital Signs: Vital Signs: Last Vital Signs Temp 98.4 F 01/19/25 06:43 Pulse 67 01/19/25 06:43 Resp 18 01/19/25 06:43 BP 106/55 L 01/19/25 06:43 Pulse Ox 97 01/19/25 06:43 O2 Del Method Room Air 01/19/25 06:43 BMI result Body Mass Index 49.4 Course Reevaluation(s) Reevaluation #1: I Celine Barton PA-C have accepted care of the patient at signed out pending imaging and likely discharge home. The patient presents with potential urinary retention, however he is constipated. CT scan of the abdomen and pelvis pending, I have viewed it myself, he has a fecal impaction. He refused disimpaction, but he is willing to have an enema. CT abdomen and pelvis:MPRESSION: 1. Rectum and distal sigmoid are moderately distended with stool. Correlate for constipation. Fecal impaction is not excluded. 2. Additional chronic findings as above. Medications Administered Discontinued Medications Generic Name Dose Route Start Last Admin Trade Name Brina PRN Reason Stop Dose Admin Iohexol 100 ml 01/19/25 01:18 01/19/25 01:18 Iohexol 350 Mg/Ml 100 Ml Infus..Btl IV 01/19/25 01:19 100 ml ONCE ONE Administration Lidocaine HCl 10 ml 01/19/25 01:49 01/19/25 01:58 Lidocaine Hcl 2 % Urojet 10 Ml Jel.Pf.Brandon TOPICAL 01/19/25 01:50 10 ml ONCE ONE Administration Oxybutynin Chloride 10 mg 01/19/25 01:34 01/19/25 01:41 Oxybutynin Chloride Er 5 Mg Tab.Er.24 PO 01/19/25 01:35 10 mg ONCE ONE Administration Sodium Biphosphate/Sodium Phosphate 133 ml 01/19/25 01:44 01/19/25 02:01 Sodium Phosphate,Forsyth-Dibasic 133 Ml Enema ME 01/19/25 01:45 133 ml ONCE ONE Administration Medical Decision Making Medical Decision Making MDM Narrative: On exam he has a soft, nontender abdomen. His bedside bladder scan is over 300 in the bladder postvoid residual. We will place a Barton catheter given he is experiencing urinary retention. With his report of constipation, plan to obtain CT imaging of the abdomen and pelvis for further visualization given the generalized pain. 0130-- urinalysis with no signs of infection. Has put out almost 1 L of urine in his Barton catheter bag upon my reassessment. Reports significant improvement in the discomfort. Mild elevation in creatinine 1.12, without significant SHYAM. leukocytosis to 13.7, improved in comparison to previous. Otherwise lab work appears reassuring and stable. Pending CT a/p for dispo likely to home. I have ordered a dose of Oxybuntynin for his bladder spasm. He has 2 hazardous material technician that rotate when they come into his home to assist him. He would like to go home if CT is normal. This is currently pending. To my preliminary interpretation, there is a large amount of stool in the rectum. I wanted to perform manual disimpaction but he has declined. This was offered in the presence of nursing staff as trades helper. I have prepared his discharge instructions as if he is being discharged to home with a normal CT scan with no acute findings. This is pending. I have ordered Levsin to his pharmacy for bladder spasm and educated him in regards to f/u outpatient with urology. We have also discussed extensively constipation and a bowel regimen. He adamanly refused a manual disimpaction in the ED. An enema was ordered. He is agreeable to this current plan. Pending fleet enema and reassessment. Signed out to Camron SULTANA Differential Diagnosis Differential Diagnoses: The differential diagnosis associated with the presentation includes Urinary retention, cystitis, kidney stone, constipation Admission/Observation Consideration of admission/observation: Escalation of care including admission/observation considered (Not indicated) Lab Data MDM Lab Attestation statement: I reviewed the patient's lab results. (overall reassuring) 01/18/25 23:36 01/18/25 23:36 Labs: Lab Results 01/18/25 01/18/25 Range/Units 23:05 23:36 WBC 13.7 H (4.8-10.8) X10*3/uL RBC 5.23 (4.60-5.80) X10*6/uL Hgb 15.7 (14.0-18.0) g/dl Hct 46.6 (42.0-52.0) % MCV 89.1 (80.0-98.0) fL MCH 30.0 (27.0-33.0) pg MCHC 33.7 (31.0-36.0) g/dl RDW 14.0 (11.0-16.0) % Plt Count 264 (160-400) X10*3/uL MPV 9.7 (9.4-12.4) fL Immature Gran % (Auto) 1.6 H (0.0-0.4) % Neut % (Auto) 74.4 H (45-73) % Lymph % (Auto) 13.8 L (20-40) % [place]yth % (Auto) 8.7 (2-11) % Eos % (Auto) 0.7 (0-4) % Baso % (Auto) 0.8 (0-2) % Lymph # (Auto) 1.9 (1.2-4.9) X10*3/uL [place]yth # (Auto) 1.2 (0.1-1.2) X10*3/uL Eos # (Auto) 0.1 (0.0-0.4) X10*3/uL Baso # (Auto) 0.1 (0.0-0.2) X10*3/uL Abs Immat Gran (auto) 0.22 H (0.00-0.03) X10*3/uL Absolute Neuts (auto) 10.2 H (2.0-8.3) x10*3/uL Absolute Nucleated RBC 0.000 (0.0-0.012) X10*3/uL Nucleated RBC % (auto) 0.0 (0.0-0.2) /100WBC Sodium 140 (135-145) mmol/L Potassium 4.4 (3.3-5.1) mmol/L Chloride 105 (96-108) mmol/L Carbon Dioxide 25 (22-29) mmol/L Anion Gap 14 (12-20) BUN 22 H (9-16) mg/dL Creatinine 1.12 (0.5-1.4) mg/dL Estim Creat Clear Calc 85.2 Estimated GFR > 60 Random Glucose 127 H (60-115) mg/dL Calcium 8.9 D (8.4-10.2) mg/dL Urine Color Yellow Urine Appearance Clear Urine pH 5.0 (5.0-9.0) Ur Specific Liguori 1.010 (1.005-1.025) Urine Protein Negative (Neg-Trace) mg/dL Urine Glucose (UA) Negative (Negative) mg/dL Urine Ketones Negative (Negative) mg/dL Urine Blood Negative (Negative) Urine Nitrite Negative (Negative) Ur Leukocyte Esterase Negative (Negative) Urine RBC 0-2 (0-2) /HPF Urine WBC 0-5 (0-5) /HPF Ur Squamous Epith Cells 0-2 (0-2) /HPF Urine Bacteria None Seen (None Seen) Hyaline Casts 3-5 (0-2) /LPF Independent Interpretation I performed an independent interpretation of an: CT Scan (Fecal impaction) Radiology Impression Radiologist Impression: Radiology read is currently pending Independent Historian Clinical information obtained from an independent historian. History obtained from or confirmed by: Friend ([employer]) and EMS External Record Review External record reviewed: Inpatient record and Outpatient record Chronic Conditions Patient?s care impacted by: Other (CHF) Social Determinants Patient?s care significantly limited by Social Determinants of Health including: Problems related to primary support group Discharge Plan Discharge Clinical Impression: Acute urinary retention, Constipation Patient Disposition: Home, Self-Care Instructions: Constipation (ED), Barton Catheter Placement and Care (ED), Fleet Enema (ED) Additional Instructions: As we discussed, you had an extensive workup in the emergency department today. Your lab work and urinalysis were overall reassuring. your Ct of the abdomen and pelvis shows that you are extremely constipated. This is the likely cause of your urinary retention. See home care instructions. You can continue to use [id number] enemas per package instructions. You also need to take [id number] Colace, twice a day, this is a stool softener. You also need to use MiraLax, several times a day, 4 to 5 times a day, until you begin having multiple large volume bowel movements. You did have urinary retention, therefore we placed a Barton catheter. This needs to be removed within the next 5-7 days by Urology. Please contact them and schedule a follow up appointment. The urinalysis did not show signs of infection. We would like for you to follow-up with your PCP within 1 week. Please return to the ED for reassessment at any time with any worsening or new complaints. Prescriptions: New hyoscyamine sulfate [Levsin] 0.125 mg tablet 0.25 mg PO QID PRN (Reason: bladder spasms) 5 Days Qty: 20 0RF No Action meclizine 25 mg tablet 25 mg PO TID PRN (Reason: dizziness) Qty: 20 0RF gabapentin 600 mg tablet 600 mg PO DAILY buspirone 10 mg tablet 20 mg PO TID metoprolol succinate 25 mg tablet extended release 24 hr 25 mg PO DAILY furosemide 40 mg tablet 40 mg PO DAILY prazosin 1 mg capsule 1 mg PO BEDTIME simvastatin 20 mg tablet 20 mg PO BEDTIME digoxin 125 mcg (0.125 mg) tablet 125 mcg PO DAILY mirtazapine 15 mg tablet 15 mg PO BEDTIME escitalopram oxalate 20 mg tablet 20 mg PO DAILY Eliquis 5 mg tablet 5 mg PO BID sacubitril-valsartan [Entresto] 24-26 mg tablet 1 tab PO BID albuterol sulfate [Ventolin HFA] 90 mcg/actuation HFA aerosol inhaler 2 puff inhalation Q4-6H PRN (Reason: bronchospasm) Qty: 8.5 0RF Referrals: [facility] [Provider Group, Urology] Interventions: ED Discharge Assessment Last Done: 01/19/25 06:43 Discharge Date/Time: 01/19/25 06:44 Print Language: Hungarian
[2025-01-19 00:03] LABS: Anion Gap 14 (12-20); Blood Urea Nitrogen 22 mg/dL (9-16); Calcium 8.9 mg/dL (8.4-10.2); Carbon Dioxide 25 mmol/L (22-29); Chloride 105 mmol/L (96-108); Creatinine Clr Calc Pharmacy 85.2; Estimated Glomerular Filt Rate > 60; Potassium 4.4 mmol/L (3.3-5.1); Sodium 140 mmol/L (135-145)
[2025-01-19] MEDS: iohexoL 350 MG/ML 100 ML INFUS..BTL IV (01:18)
[2025-01-19] MEDS: oxyBUTYnin chloride ER 5 MG TAB.ER.24 10 MG PO (01:41)
[2025-01-19 01:44] VITALS: BP 103/53; PULSE 67; RESP 18; O2SAT 96
[2025-01-19] MEDS: Lidocaine HCl 2 % Urojet 10 ML JEL.PF.APP TOPICAL (01:58)
[2025-01-19 06:39] VITALS: BP 106/55; PULSE 67; RESP 18; TEMP 36.9; O2SAT 97
[2025-01-19 06:43] VITALS: BP 106/55; PULSE 67; RESP 18; TEMP 36.9; O2SAT 97
== END 2025-01-19 06:44 | disposition home or self-care (01) ==
PROVIDERS: Nurse Practitioner; Emergency Provider Emergency Medicine
DX: R33.9 Retention of urine, unspecified (principal); K59.00 Constipation, unspecified; Z79.899 Other long term (current) drug therapy
CPT/HCPCS: 36415; 51701; 51798; 74177; 80048; 81001; 85025; 99285; Q9967

== ENCOUNTER → 2025-01-19 | Outpatient (BNV) | payer OTHER, SELFPAY | PROVIDERS: Emergency Provider Emergency Medicine; Visit Provider Radiology Diagnostic Radiology | DX: R10.9 Unspecified abdominal pain (principal) | CPT/HCPCS: 74177 ==

== ENCOUNTER 2025-01-25 08:06 | Emergency (ER) | payer OTHER, SELFPAY ==
[2025-01-25 08:16] VITALS: PULSE 74; O2SAT 99
[2025-01-25 08:19] VITALS: BP 123/70; PULSE 74; RESP 16; TEMP 36.3; O2SAT 94; BMI 58.7
--- NOTE | 2025-01-25 08:33 | ED.EYEPROB ---
HPI - Eye Problem General Chief complaint: Eye Problems Stated complaint: eyes burning Time Seen by Provider: 01/25/25 08:19 Source: patient and conference interpreter Mode of arrival: EMS Limitations: no limitations History of Present Illness ED Provider: HPI Narrative: Patient reports facial pruritus and irritation of his eyes, for the past 1 week, clear discharge with some crusting, he states he used penicillin drops that he had left over that did not help, no rashes noted, he is to have cataract surgeries, poor vision at baseline but no new changes, no facial swelling no new facial products or hair products reported, no new irritants. Related Data Home Medications ?Medication ?Instructions ?Recorded ?Confirmed apixaban 5 mg tablet (Eliquis) 5 mg PO BID 10/13/22 01/01/25 digoxin 125 mcg (0.125 mg) tablet 125 mcg PO DAILY 10/13/22 01/01/25 escitalopram oxalate 20 mg tablet 20 mg PO DAILY 10/13/22 01/01/25 furosemide 40 mg tablet 40 mg PO DAILY 10/13/22 01/01/25 mirtazapine 15 mg tablet 15 mg PO BEDTIME 10/13/22 01/01/25 prazosin 1 mg capsule 1 mg PO BEDTIME 10/13/22 01/01/25 sacubitril 24 mg-valsartan 26 mg 1 tab PO BID 10/13/22 01/01/25 tablet (Entresto) simvastatin 20 mg tablet 20 mg PO BEDTIME 10/13/22 01/01/25 buspirone 10 mg tablet 20 mg PO TID 01/01/25 01/01/25 gabapentin 600 mg tablet 600 mg PO DAILY 01/01/25 01/01/25 metoprolol succinate 25 mg 25 mg PO DAILY 01/01/25 01/01/25 tablet,extended release 24 hr Previous Rx's ?Medication ?Instructions ?Recorded meclizine 25 mg tablet 25 mg PO TID PRN dizziness #20 tabs 07/26/23 albuterol sulfate 90 mcg/actuation 2 puff inhalation Q4-6H PRN 12/30/24 aerosol inhaler (Ventolin HFA) bronchospasm #8.5 grams hyoscyamine sulfate 0.125 mg 0.25 mg (2 x 0.125 mg) PO QID PRN 01/19/25 tablet (Levsin) bladder spasms 5 days #20 tabs Allergies Allergy/AdvReac Type Severity Reaction Status Date / Time No Known Allergies Allergy Verified 01/25/25 08:23 Review of Systems Constitutional: Constitutional: Reports as per [facility] Past Medical History Medical History CHF (congestive heart failure) Cardiomegaly Hypertension Panic anxiety syndrome Anxiety Depression Social History Social History Household Members: None Housing: Apartment Do you presently have visiting nurse or other home services: Yes ([employer] and [facility]) Alcohol intake: current Alcohol intake frequency: does not drink Patient Tobacco Use Status: Never used Tobacco Advance Directives: No Advance Directives Information Provided: Yes service: No Physical Exam Exam: Exam: Morbidly obese male, appears slightly older than stated age No facial edema, no periorbital edema Examination of his eyes without purulent discharge, there was no conjunctival erythema Vision intact checked at bedside Intra-ocular pressures: OS: OD: 02/05/10 Vital Signs: Vital Signs: Last Vital Signs Temp 97.4 F 01/25/25 08:19 Pulse 74 01/25/25 08:19 Resp 16 01/25/25 08:19 BP 123/70 01/25/25 08:19 Pulse Ox 94 01/25/25 08:19 O2 Del Method Room Air 01/25/25 08:19 BMI result Body Mass Index 58.7 Medications Administered Discontinued Medications Generic Name Dose Route Start Last Admin Trade Name Freq PRN Reason Stop Dose Admin Tetracaine HCl 1 drop 01/25/25 08:19 01/25/25 08:47 Tetracaine Hcl 0.5% Oph Tresa 5 Ml Drops EYE-BOTH 01/25/25 08:20 1 drop ONCE ONE Administration Tetracaine HCl 1 drop 01/25/25 08:45 01/25/25 08:47 Tetracaine Hcl/Pf 0.5% Oph Tresa 4 Ml Drops EYE-BOTH 01/25/25 08:46 1 drop ONCE ONE Administration Medical Decision Making Medical Decision Making MDM Narrative: 8:40 AM 01/25/2025 (Dr. Baldemar Adler): Reports itch in his face and eyes, there was no purulence there was no erythema of the eyes, intra-ocular pressures are unremarkable nothing to suspect glaucoma, no evidence for cellulitis, because he did not have any foreign body sensation did not perform Wood's lamp exam or staining, he is nondiabetic we will give oral steroids as he reports generalized itching and eyedrops for itching Differential Diagnosis Differential Diagnoses: The differential diagnosis associated with the presentation includes (Bacterial conjunctivitis, viral conjunctivitis, foreign body, acute-closure glaucoma, periorbital cellulitis, septal cellulitis) Discharge Plan Discharge Clinical Impression: Itchy eyes Patient Disposition: Home, Self-Care Additional Instructions: I am not certain what is causing itchiness of your face , possibly the skin is getting dry so make sure to apply hydrating facial cream, it does not appear that you are using any new buttock care products that may be exacerbating your itchy symptoms otherwise, I am going to start her on steroids for the next few days to help with itch in his, but otherwise I do not see any rashes and your body, and you can use the drops provided 1-2 drop each eye every 12 hours as needed for itchiness, follow up with the PCP, do not use antibiotic ointment drops that you have at home it can exacerbate your symptoms you do not have any evidence for infection No estoy seguro de qu? est? causando la picaz?n en tanner zhao, posiblemente la piel se est? secando, as? que aseg?rese de aplicar ezequiel crema facial hidratante. No parece que est? usando thom?n producto nuevo para el cuidado de los gl?teos que pueda estar agravando cristiane s?ntomas de picaz?n; de lo contrario, voy a comenzar a darle esteroides florina los pr?ximos d?as para ayudar con la picaz?n en ?l, holly por lo dem?s no veo ninguna erupci?n en tanner cuerpo, y puede usar las gotas proporcionadas, 1-2 gotas en cada laquita cada 12 horas seg?n sea necesario para la picaz?n, milton un seguimiento con el m?dico de cabecera, no use gotas de daria?ento antibi?lm que tenga en casa, puede agravar cristiane s?ntomas, no tiene ninguna evidencia de infecci?n Prescriptions: No Action meclizine 25 mg tablet 25 mg PO TID PRN (Reason: dizziness) Qty: 20 0RF gabapentin 600 mg tablet 600 mg PO DAILY buspirone 10 mg tablet 20 mg PO TID metoprolol succinate 25 mg tablet extended release 24 hr 25 mg PO DAILY furosemide 40 mg tablet 40 mg PO DAILY prazosin 1 mg capsule 1 mg PO BEDTIME simvastatin 20 mg tablet 20 mg PO BEDTIME digoxin 125 mcg (0.125 mg) tablet 125 mcg PO DAILY mirtazapine 15 mg tablet 15 mg PO BEDTIME escitalopram oxalate 20 mg tablet 20 mg PO DAILY Eliquis 5 mg tablet 5 mg PO BID sacubitril-valsartan [Entresto] 24-26 mg tablet 1 tab PO BID albuterol sulfate [Ventolin HFA] 90 mcg/actuation HFA aerosol inhaler 2 puff inhalation Q4-6H PRN (Reason: bronchospasm) Qty: 8.5 0RF hyoscyamine sulfate [Levsin] 0.125 mg tablet 0.25 mg PO QID PRN (Reason: bladder spasms) 5 Days Qty: 20 0RF Print Language: Kyrgyz
--- OUTSIDE RECORDS SUMMARY | 2025-01-25 08:39 | XMS_ITS | Clinical Summary ---
Author Organization [facility] Rewarder [facility] Address [address] [place] [address] Phone Care Team Providers Care Pediatric Allergist Name Role Phone PasserSocorro Primary Care Provider [phone] Allergies No known active allergies Medications busPIRone [...] but not all possible risks including , NV, CVA, damage to artery wrist arrhythmia infection allergy to the dye. I have given him material to read about this. I told him if you would like to proceed to call me I would schedule this. Do it at [facility]. Also not clear if the aortic regurgitation [...] Type Department Care Team Description 11/02/2024 Telephone [facility] - [facility] [address] [facility] [address] [place] [address] Heraclio Szymanski MD from Last [...] ilateral chronic knee pain Constipation DX:Constipation Diabetes ([facility] V24, [facility] V28) DX:Diabetes ([facility]) GERD (gastroesophageal reflux disease) DX:GERD (gastroesophageal reflux disease) Glucose intolerance DX:Glucose i ntolerance Obesity, Class III, BMI 40-4 9.9 (morbid obesity) ([facility] V28) DX:Obesity, Class III, BMI 4 0-49.9 (morbid obesity) ([facility]) Social History Tobacco Use Types Packs/Day [...] Most Recently Relevant to Health Maintenance Insurance [facility] Member Subscriber Plan / Payer (Ef fective 2023-Present) Name:Chris Parham Relation to Subscriber:Self Name:Chris Parham Payer ID:[id number] Group ID:[id number] Type:Not on file Address: [place] [address] [address] [id number] Care Teams Pediatric Allergist Relationship Specialty Start Date End Date Socorro Meza PA [address] [place] [phone] PCP - General Physician Armor Reconnaissance Specialist 04/09/24
--- OUTSIDE RECORDS SUMMARY | 2025-01-25 08:39 | XMS_ITS | Data Portability ---
Author Organization [email or web address] [facility] Address [address] [place] [address] Care Team Providers Care Inspector Balance Truing Name Role Phone HIM [facility] OTHER [facility] Primary Care P pam Assessment Encounter Date Assessment Date Assessment LastModified by Organization Details LastModified Time 06/11/2024 06/11/2024 I provided real -time medical direction via phone for this encounter and was available for additional phone-based assistance as needed. I have reviewed and agree with the Assessment and Plan as documented by the Alum Mixer. Patient given the opportunity to ask questions. Our service contacted for an assessment of: Question of tachypnea As per above, patient's CONTROL SUPERVISOR thought the patient had tachypnea and called for visit. Upon arrival the surgical supervisor, the patient had no tachypnea and otherwise felt well. The patient had no complaints. Per surgical supervisor on the scene, Vital signs are stable [...] IN 30 MIN IF NEEDED. LABEL IN JAPANESE active Not Available Not Available No t [...] Updated DateTime 5 98.6 [degF] 97 % 080328. 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 Functional Status None recorded. Mental Status None recorded. Family History Nothing Reported. Medical History No medical history recorded. Past Encounters Encounter ID Performer Location Encounter Start Date Encounter Closed Date Diagnosis/Indication Diagnosis SNOMED-CT Code Diagnosis ICD10 Code Diagnosis IMO Codes Diagnosis Note [id number] Mayte Pro MD Main - [facility] [address] [place] [address] 06/11/2024 14:43:42 06/11/2024 18:10:01 Physical examination 9528367 Z00.00 [id number] Health Concerns Section Related Observation LastModified by Organization Detai ls LastModified Time None Recorded Concern Status LastModified by Organization Details LastModified Time None Recorded Advance Directives Directive None Recorded Payers Insurance Date Sequence Insurance Name Policy Number Policy Armando Covered Member ID Armando Member ID Guarantor Name 06/11/2024 1 [facility] - DOS ON OR AFTER 2022 - DUAL ELIGIBLE - SENIOR LIVING OPTIONS AND ONE CARE (MEDICARE REPLACEMENT/ADV ANTAGE - HMO) Chris Parham [id number] Chris Parham Notes Date Note Type Note Provider Name and Address Organization Details Recorded Time 06/11/2024 text/html [facility] Nurse Triage Notes (Wilberto Owen - RN): Reason For Request: Pt's CONTROL SUPERVISOR reporting fatigue (member does not have asthma but CONTROL SUPERVISOR describes the fatigue as such)>SOB, belabored breathing>symptoms [...] Allergies Reviewed at 06/11/2024 - 13:11 Comments: Chemical Project Engineer verified the patient's name//address and phone number. Pt's CONTROL SUPERVISOR calling reporting patient is breathing faster then normal. CONTROL SUPERVISOR reports pt does not have asthma that she is aware of. CONTROL SUPERVISOR reports pt's symptoms started over the weekend. CONTROL SUPERVISOR reports pt is not able to talk as much as normal because of the SOB. CONTROL SUPERVISOR reports pt declines going to the ER. Education provided on the response time and the patient was advised to monitor reported s/s and seek emergency treatment if needed -Citlali Owen RN ..................... ..................... ..................... ..................... ..................... ..................... ............... Alum Mixer Note From Amarjit Sexton: Dispatched to the call address for the male with shortness of breath. CONTROL SUPERVISOR advises she feels the Pt is breathing fast. Pt states he feels OK, sometimes he feels a little short of breath but that it is not new. Pt denies chest pain, diff breathing/sob, n/v/d, cough, headache, fevers or any other symptoms at this time. Pt states he believes his occasional SoB is due to his obesity. CONTROL SUPERVISOR advises he does not move around very [...] ..................... ..................... ..................... ..................... ..................... ..................... ............... [facility] [place]: Mayte Pro ..................... ..................... ..................... ..................... ..................... ..................... ............... Disposition: Fulfilled Mayte Pro MD [address] [facility], [place], [address], [facility] [employer] 06/11/2024 17:56:06
[2025-01-25] MEDS: Tetracaine HCl/PF 0.5% Oph Sol 4 ML DROPS 1 DROP EYE-BOTH (08:47)
[2025-01-25] MEDS: Tetracaine HCl 0.5% Oph Sol 5 ML DROPS 1 DROP EYE-BOTH (08:47)
[2025-01-25 08:52] VITALS: BP 123/70; PULSE 74; RESP 16; TEMP 36.3; O2SAT 94
[2025-01-25] MEDS: Ketotifen Fumarate 0.025% Oph 5 ML DRPBTL 1 DROP EYE-BOTH (08:57)
[2025-01-25 09:15] VITALS: BP 123/70; PULSE 74; RESP 16; TEMP 36.3; O2SAT 94
== END 2025-01-25 09:52 | disposition home or self-care (01) ==
PROVIDERS: Emergency Provider Emergency Medicine
DX: H57.89 Other specified disorders of eye and adnexa (principal)
CPT/HCPCS: 99283; 99284